=== PATIENT | male | born 1980 | race Caucasian/White ===

== ENCOUNTER 2016-09-23 20:35 | Inpatient (IN) | payer MEDICARE, MEDICAID, OTHER ==
--- NOTE | 2016-09-23 21:08 | RAD ---
HISTORY: Neurological changes, code harman COMPARISONS: None TECHNIQUE: Multiple contiguous axial CT scans were obtained of the head without intravenous contrast. FINDINGS: HEMORRHAGE/INFARCT: There is no hemorrhage or acute infarct. MASSES/SHIFT: There is no mass or shift. EXTRA-AXIAL SPACES: There are no extra-axial fluid collections. SULCI AND VENTRICLES: The sulci and ventricles are normal in size and position for the patient's stated age. CEREBRUM: There are no focal parenchymal abnormalities. BRAINSTEM: There are no focal parenchymal abnormalities. CEREBELLUM: There are no focal parenchymal abnormalities. VESSELS: The vessels are grossly normal. PARANASAL SINUSES: The paranasal sinuses are clear. ORBITS: The orbits are unremarkable. BONES AND SOFT TISSUE: No bone or soft tissue abnormalities are noted. OTHER: None IMPRESSION: NO ACUTE INTRACRANIAL PATHOLOGY. PRELIMINARY FINDINGS WERE DISCUSSED WITH DR. ARCHER IN THE EMERGENCY DEPARTMENT AT APPROXIMATELY 9:03 PM..
[2016-09-23 21:18] LABS: Hematocrit 44 % (42-52); Hemoglobin 14.6 g/dl (14.0-18.0); Mean Corpuscular HGB Conc 34 g/dl (31-36); Mean Corpuscular Hemoglobin 29 pg (27-31); Mean Corpuscular Volume 87 fL (80-94); Mean Platelet Volume 7 um3 (7.4-10.4); Red Blood Count 4.98 10^6/ul (4.0-5.4); Red Cell Distribution Width 14 % (10.5-15); White Blood Count 4.7 10^3/ul (3.5-10.8)
[2016-09-23] MEDS ORDERED: ALTEPLASE IV ONE (21:21)
[2016-09-23] MEDS ORDERED: Alteplase* 100 MG VIAL IV ONE (21:21)
[2016-09-23] MEDS ORDERED: ALTEPLASE IVPB ONE (21:21)
[2016-09-23 21:31] LABS: Albumin 4.5 g/dL (3.2-5.2); BUN/Creatinine Ratio 19.4 (8-20); Calcium 9.5 mg/dL (8.6-10.3); EGFR African American 110.1 (>60); EGFR Non-African American 85.6 (>60); Globulin 3.6 g/dL (2-4); HDL Cholesterol 33.5 mg/dL; Total Bilirubin 0.7 mg/dL (0.2-1.0); Total Protein 8.1 g/dL (6.4-8.9)
--- NOTE | 2016-09-23 21:31 | RAD ---
HISTORY: Stroke COMPARISONS: None VIEWS:1: Single frontal portable view of the chest at 9:02 PM FINDINGS: LINES AND TUBES: A left-sided pacemaker is noted CARDIOMEDIASTINAL SILHOUETTE: The cardiomediastinal silhouette is normal for portable technique. PLEURA: The costophrenic angles are sharp. No pleural abnormalities are noted. LUNG PARENCHYMA: The lungs are clear. ABDOMEN: The upper abdomen is clear. There is no subphrenic gas. BONES AND SOFT TISSUES: No bone or soft tissue abnormalities are noted. IMPRESSION: NO ACTIVE CARDIOPULMONARY DISEASE.
[2016-09-23] MEDS ORDERED: Alteplase* 100 MG VIAL ONE (21:32)
[2016-09-23 21:33] LABS: Potassium 4.1 mmol/L (3.5-5.0); Troponin I 0.01 ng/mL (<0.04)
[2016-09-23] MEDS ORDERED: Iodixanol* (CONTRAST) 320 MG/ML 100 ML SDV IV ONE (21:50)
[2016-09-23] MEDS ORDERED: PROCHLORPERAZINE INJ 5 MG/ML 2 ML VIAL IV PRN (22:20)
[2016-09-23] MEDS ORDERED: Acetaminophen TAB* 325 MG PO PRN (22:20)
[2016-09-23] MEDS ORDERED: Ondansetron INJ* 2 MG/ML VIAL IV PRN (22:20)
--- NOTE | 2016-09-23 22:25 | HP ---
H&P (Free Text) History and Physical: PCP: THERON Huber MD Date/Time of Evaluation: 09/23/2016 2225 CC: L-sided weakness, slurred speech HPI: Mr York is a 36YO male HX unnamed/unidentified congenital neurologic syndrome & AFIB s/p pacer at age 13 years who presents with sudden onset at 1810 of L-sided upper & lower extremity weakness associated with slurred speech for which he PMedHx unnamed/unidentified congenital neurologic syndrome s/p extensive work up : tunnel vision : speech impediment : pes excavatum : ataxia chronic AFIB s/p pacer HTN L exotropia Allergies No Known Allergies Allergy (Verified 09/23/16 22:47) Ambulatory Orders Aspirin TAB* 325 mg PO DAILY 12/09/14 Fish Oil 1 tab PO DAILY 12/09/14 Lactobacillus [Probiotic] 1 cap PO DAILY 12/09/14 Lisinopril TAB* [Prinivil TAB*] 2.5 mg PO DAILY 12/09/14 Nebivolol TAB (NF) [Bystolic TAB (NF)] 2.5 mg PO DAILY 12/09/14 Topical Antifungal Cream* PRN 01/26/16 PSurgHx pes escavatum correction pacer placement L esotropia correction wisdom teeth extraction muscle biopsy SocHx: no tobacco, alcohol, or recreational drugs; lives with his parents; unemployed, on disability; full code status FamHx: Father: MARISSA/4vCABG in his 40s ROS: as above, otherwise reviewed and all were negative Constitutional: NAD, normally developed, well-nourished white male vitals: Vital Signs Temp 36.3 C 09/23/16 20:47 Pulse 85 09/23/16 20:47 Resp 20 09/23/16 20:47 BP 132/60 09/23/16 20:47 Pulse Ox 100 09/23/16 20:47 HEENM: atraumatic; sclera/conjunctiva: non-icteric/clear; hearing: clinically intact; oropharynx: clear, mucosa moist Neck: soft tissue: non-tender; thyroid: normal Pulmonary: clear to auscultation bilaterally, good aeration, no accessory muscle use CV: RR/RR, normal S1S2, no carotid bruit, no jugular venous distention, 2+ B DP/ PT, no edema Abdominal: soft, non-distended, non-tender, no rebound/guarding/rigidity, normoactive bowel sounds, no hepatosplenomegaly or masses, no costovertebral angle tenderness Musculoskeletal: general: grossly intact Integumental: normal appearance and texture Neurological deferred to neurology Psychiatric orientation: AA&O to PPS affect: calm mood: pleasant eye contact: good content: reliable, mild expressive aphasia responses: timely insight: fair to good Testing: Lab Results 09/23/16 09/23/16 09/23/16 Range/Units 20:50 20:50 20:50 WBC 4.7 (3.5-10.8) 10^3/ul RBC 4.98 (4.0-5.4) 10^6/ul Hgb 14.6 (14.0-18.0) g/dl Hct 44 (42-52) % MCV 87 (80-94) fL MCH 29 (27-31) pg MCHC 34 (31-36) g/dl RDW 14 (10.5-15) % Plt Count 264 (150-450) 10^3/ul MPV 7 L (7.4-10.4) um3 Neut % (Auto) 38.2 (38-83) % Lymph % (Auto) 42.8 (25-47) % Bennett % (Auto) 16.8 H (1-9) % Eos % (Auto) 1.3 (0-6) % Baso % (Auto) 0.9 (0-2) % Absolute Neuts (auto) 1.8 (1.5-7.7) 10^3/ul Absolute Lymphs (auto) 2.0 (1.0-4.8) 10^3/ul Absolute Monos (auto) 0.8 (0-0.8) 10^3/ul Absolute Eos (auto) 0.1 (0-0.6) 10^3/ul Absolute Basos (auto) 0 (0-0.2) 10^3/ul Absolute Nucleated RBC 0.01 10^3/ul Nucleated RBC % 0.2 INR (Anticoag Therapy) 1.00 (0.89-1.11) APTT 31.8 (26.0-36.3) seconds Sodium 134 (133-145) mmol/L Potassium 4.1 (3.5-5.0) mmol/L Chloride 99 L (101-111) mmol/L Carbon Dioxide 29 (22-32) mmol/L Anion Gap 6 (2-11) mmol/L BUN 19 (6-24) mg/dL Creatinine 0.98 (0.67-1.17) mg/dL Est GFR ( Amer) 110.1 (>60) Est GFR (Non-Af Amer) 85.6 (>60) BUN/Creatinine Ratio 19.4 (8-20) Glucose 95 (70-100) mg/dL Lactic Acid (0.5-2.0) mmol/L Calcium 9.5 (8.6-10.3) mg/dL Total Bilirubin 0.70 (0.2-1.0) mg/dL AST 19 (13-39) U/L ALT 13 (7-52) U/L Alkaline Phosphatase 65 (34-104) U/L Troponin I 0.01 (<0.04) ng/mL Total Protein 8.1 (6.4-8.9) g/dL Albumin 4.5 (3.2-5.2) g/dL Globulin 3.6 (2-4) g/dL Albumin/Globulin Ratio 1.3 (1-3) Triglycerides 215 mg/dL Cholesterol 208 mg/dL LDL Cholesterol 132 mg/dL HDL Cholesterol 33.5 mg/dL Urine Color Urine Appearance Urine pH (5-9) Ur Specific [place] (1.010-1.030) Urine Protein (Negative) Urine Ketones (Negative) Urine Blood (Negative) Urine Nitrate (Negative) Urine Bilirubin (Negative) Urine Urobilinogen (Negative) Ur Leukocyte Esterase (Negative) Urine WBC (Auto) (Absent) Urine RBC (Auto) (Absent) Urine Bacteria (Absent) Hyaline Casts (Absent) Urine Glucose (Negative) Blood Type Antibody Screen 09/23/16 09/23/16 09/23/16 Range/Units 20:50 20:50 21:51 WBC (3.5-10.8) 10^3/ul RBC (4.0-5.4) 10^6/ul Hgb (14.0-18.0) g/dl Hct (42-52) % MCV (80-94) fL MCH (27-31) pg MCHC (31-36) g/dl RDW (10.5-15) % Plt Count (150-450) 10^3/ul MPV (7.4-10.4) um3 Neut % (Auto) (38-83) % Lymph % (Auto) (25-47) % Bennett % (Auto) (1-9) % Eos % (Auto) (0-6) % Baso % (Auto) (0-2) % Absolute Neuts (auto) (1.5-7.7) 10^3/ul Absolute Lymphs (auto) (1.0-4.8) 10^3/ul Absolute Monos (auto) (0-0.8) 10^3/ul Absolute Eos (auto) (0-0.6) 10^3/ul Absolute Basos (auto) (0-0.2) 10^3/ul Absolute Nucleated RBC 10^3/ul Nucleated RBC % INR (Anticoag Therapy) (0.89-1.11) APTT (26.0-36.3) seconds Sodium (133-145) mmol/L Potassium (3.5-5.0) mmol/L Chloride (101-111) mmol/L Carbon Dioxide (22-32) mmol/L Anion Gap (2-11) mmol/L BUN (6-24) mg/dL Creatinine (0.67-1.17) mg/dL Est GFR ( Amer) (>60) Est GFR (Non-Af Amer) (>60) BUN/Creatinine Ratio (8-20) Glucose (70-100) mg/dL Lactic Acid 0.8 (0.5-2.0) mmol/L Calcium (8.6-10.3) mg/dL Total Bilirubin (0.2-1.0) mg/dL AST (13-39) U/L ALT (7-52) U/L Alkaline Phosphatase (34-104) U/L Troponin I (<0.04) ng/mL Total Protein (6.4-8.9) g/dL Albumin (3.2-5.2) g/dL Globulin (2-4) g/dL Albumin/Globulin Ratio (1-3) Triglycerides mg/dL Cholesterol mg/dL LDL Cholesterol mg/dL HDL Cholesterol mg/dL Urine Color Yellow Urine Appearance Clear Urine pH 6.0 (5-9) Ur Specific [place] 1.019 (1.010-1.030) Urine Protein 1+(30 mg/dl) H (Negative) Urine Ketones Negative (Negative) Urine Blood 2+ H (Negative) Urine Nitrate Negative (Negative) Urine Bilirubin Negative (Negative) Urine Urobilinogen Negative (Negative) Ur Leukocyte Esterase Negative (Negative) Urine WBC (Auto) Trace(0-5/hpf) (Absent) Urine RBC (Auto) 2+(6-10/hpf) H (Absent) Urine Bacteria Absent (Absent) Hyaline Casts Present H (Absent) Urine Glucose Negative (Negative) Blood Type O Positive Antibody Screen Negative ECG, personally reviewed: A-flutter, ventricularly paced rate 60 CXR, personally reviewed: IMPRESSION: NO ACTIVE CARDIOPULMONARY DISEASE. CT brain WO, personally reviewed: IMPRESSION: NO ACUTE INTRACRANIAL PATHOLOGY. CTA head/neck: IMPRESSION: 1. NO ANEURYSM, VASCULAR MALFORMATION, OCCLUSION, OR STENOSIS OF THE VISUALIZED INTRACRANIAL CIRCULATION. 2. NO INTERNAL CAROTID ARTERY STENOSIS BY NASCET CRITERIA. Impression: 36M presenting with an acute L MCA CVA now s/p tPA DIAGNOSIS & PLAN Primary acute L MCA CVA now s/p tPA : post-tPA protocol : ICU monitoring : Cheng Rivera MD neurology evaluated in ED & will follow : supplemental oxygen : supportive care AFIB : rate controlled : [id number] score now 3, will need anticoagulation once cleared by neurology : continue nabivolol Secondary unnamed/unidentified congenital neurologic syndrome s/p extensive work up : tunnel vision : speech impediment : pes excavatum : ataxia HTN : continue lisinopril & nebivolol Admission Rational: inpatient for management of acute L MCA CVA s/p tPA DVTp: tPA for first 24hours, then to be decided pending further CVA work up Code Status: full HCP: mother
--- NOTE | 2016-09-23 22:42 | CONS ---
CONSULTATION REPORT: ADDENDUM: The patient continued to improve and the family had me reevaluate him prior to giving the TPA. He still has a slight pronator drift on the right and a less of a facial droop but still a facial droop. He is able to speak in sentences now but with some word finding difficulty and hesitancy. He also has some slurred speech which is his baseline but his speech is still significantly affected and we were able to discuss whether he wants to get the TPA despite the risks as well as the family they are in agreement to going ahead and this is what we will be doing at this point. [id number]/CPS #: [id number] MTDD
[2016-09-23 22:53] LABS: Urine Bacteria Absent (Absent); Urine Bilirubin Negative (Negative); Urine Glucose Negative (Negative); Urine Nitrite Negative (Negative)
--- NOTE | 2016-09-23 23:04 | RAD ---
HISTORY: Facial droop, stroke COMPARISONS: Head CT dated September 23, 2016 TECHNIQUE: Multiple contiguous axial CT scans were obtained of the head and neck After the administration of nonionic intravenous contrast timed to the systemic arterial phase of contrast enhancement. Coronal and sagittal multiplanar reformations are submitted for review. Multiple 3-D maximum intensity projection reconstructions are also submitted for review. FINDINGS: Evaluation is limited by suboptimal contrast opacification. CTA NECK: AORTIC ARCH: Evaluation limited by suboptimal contrast opacification and streak artifact from left-sided pacemaker. There is a bovine configuration, with the left common carotid artery originating from the brachiocephalic trunk. There is no ostial or proximal stenosis of the cephalic great vessels. RIGHT VERTEBRAL ARTERY: The right vertebral artery is patent along its course, without stenosis. LEFT VERTEBRAL ARTERY: The left vertebral artery is patent along its course, without stenosis. DOMINANCE: The vertebral arteries are codominant. RIGHT COMMON CAROTID ARTERY: The right common carotid artery is patent. The right carotid bifurcation occurs at C4-C5 RIGHT INTERNAL CAROTID ARTERY: There is no right internal carotid artery stenosis by NASCET criteria. RIGHT EXTERNAL CAROTID ARTERY: The right external carotid artery is unremarkable. LEFT COMMON CAROTID ARTERY: The left common carotid artery is patent. The left carotid bifurcation occurs at C4-C5 LEFT INTERNAL CAROTID ARTERY: There is no left internal carotid artery stenosis by NASCET criteria. LEFT EXTERNAL CAROTID ARTERY: The left external carotid artery is unremarkable. VENOUS CIRCULATION: The venous system is unremarkable. SALIVARY GLANDS: The parotid glands, submandibular glands, sublingual glands are normal. NASAL CAVITY/NASOPHARYNX: The nasal cavity and nasopharynx are normal. ORAL CAVITY/OROPHARYNX: The oral cavity is obscured by streak artifact from dental amalgam. The visualized oral cavity and oropharynx are unremarkable. LARYNGEAL APPARATUS/HYPOPHARYNX: The laryngeal apparatus and hypopharynx are normal. UPPER AIRWAY/UPPER ESOPHAGUS: The visualized upper airway and esophagus are normal. LUNG APICES: The lung apices are clear. THYROID GLAND: The thyroid gland is normal. LYMPH NODES: There is no lymphadenopathy by size criteria. BONES AND SOFT TISSUES: No bone or soft tissue abnormalities are noted. CTA HEAD: INTRACRANIAL CIRCULATION: There are origins of the posterior cerebral arteries bilaterally. The anterior communicating artery complex is clear. This results in a diminutive vertebrobasilar system which is felt to BE an anatomic variant given the predominant supply of the posterior cerebral arteries from the anterior circulation. There is no aneurysm, vascular malformation, focal stenosis, or occlusion of the visualized intracranial circulation. VENOUS CIRCULATION: The venous system is unremarkable. PERFUSION: There is no obvious parenchymal perfusion deficit. HEMORRHAGE/INFARCT: There is no hemorrhage or acute infarct. MASSES/SHIFT: There is no mass or shift. EXTRA-AXIAL SPACES: There are no extra-axial fluid collections. SULCI AND VENTRICLES: The sulci and ventricles are normal in size and position for the patient's stated age. CEREBRUM: There are no focal parenchymal abnormalities. BRAINSTEM: There are no focal parenchymal abnormalities. CEREBELLUM: There are no focal parenchymal abnormalities. PARANASAL SINUSES: The paranasal sinuses are clear. ORBITS: The orbits are unremarkable. BONES AND SOFT TISSUE: No bone or soft tissue abnormalities are noted. OTHER: There is no abnormal enhancement. IMPRESSION: 1. NO ANEURYSM, VASCULAR MALFORMATION, OCCLUSION, OR STENOSIS OF THE VISUALIZED INTRACRANIAL CIRCULATION. 2. NO INTERNAL CAROTID ARTERY STENOSIS BY NASCET CRITERIA. CPT II Codes: 3100F
[2016-09-23] MEDS: Pantoprazole IV* 40 MG IV SCH (23:07)
--- NOTE | 2016-09-23 23:26 | ED ---
David Flores Billy, scribed for Gabriel Brandt MD on 09/23/16 at 2109 . Neurological HPI - HPI Summary HPI Summary: Patient is a 36 year-old male coming to [facility] with his parents presenting with slurred speech, right-sided upper and lower extremity weakness, right-sided facial droop, and confusion AMS starting at 2020 tonight. Parents state that the facial droop and speech sounds seem to have improved since onset, but the patient's confusion appears unchanged. 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 - History of Current Complaint Chief Complaint: EDAltMentalStatus Stated Complaint: RT SIDE WEAKNESS/CONFUSED Time Seen by Provider: 09/23/16 20:54 Last Known Well Date: prior to 20:20 today Hx Obtained From: Family/[employer] Helper - parents Onset/Duration: Sudden Onset, Started minutes ago, Still Present Timing: Constant Onset Severity: Moderate Current Severity: Moderate Neurological Deficit Location: Facial, RUE, RLE Character: Motor Weakness, Impaired Speech, Confusion, Other: - facial droop Aggravating: Unknown Alleviating: Unknown - Allergy/Home Medications Allergies/Adverse Reactions: Allergies Allergy/AdvReac Type Severity Reaction Status Date / Time No Known Allergies Allergy Verified 09/23/16 22:47 PMH/Surg Hx/FS Hx/Imm Hx Cardiovascular History: Reports: Hx Pacemaker/ICD Musculoskeletal History: Reports: Other Musculoskeletal History - pectus excavatum - Surgical History Surgery Procedure, Year, and Place: PACEMAKER, PECTUSEXCAVATUM REPAIR, EYE SURGERY Infectious Disease History: Denies: Traveled Outside the [place] in Last 30 Days - Family History Known Family History: Positive: Hypertension - Social History Alcohol Use: Occasionally Substance Use Type: Reports: None Smoking Status (MU): Never Smoked Tobacco Review of Systems Negative: Fever Neurological: Other - right facial droop, AMS, ataxia Positive: Weakness, Slurred Speech All Other Systems Reviewed And Are Negative: No - Comments Additional Review of Systems Comments: Due to his symptoms, patient is unable to effectively provide a complete ROS. Physical Exam - Summary Physical Exam Summary: VITAL SIGNS: Reviewed. GENERAL: Patient is a well developed and nourished male with speech aphasia. Unable to communicate well since he has difficulty speaking. HEAD AND FACE: No signs of trauma. No ecchymosis, hematomas or skull depressions. No sinus tenderness. EYES: PERRLA, EOMI x 2, No injected conjunctiva, no nystagmus. No photophobia. EARS: Hearing grossly intact. Ear canals and tympanic membranes are within normal limits. MOUTH: Oropharynx within normal limits. NECK: Supple, trachea is midline, no adenopathy, no JVD, no carotid bruit, no c- spine tenderness, neck with full ROM. No meningeal signs, no Kernig's or brudzinskis signs. CHEST: Symmetric, no tenderness at palpation LUNGS: Clear to auscultation bilaterally. No wheezing or crackles. CVS: Regular rate and rhythm, S1 and S2 present, no murmurs or gallops appreciated. ABDOMEN: Soft, non-tender. No signs of distention. No rebound no guarding, and no masses palpated. Bowel sounds are normal. EXTREMITIES: No edema, no cyanosis or clubbing. NEURO: Alert not oriented. NIH score 11 SKIN: Dry and warm Triage Information Reviewed: Yes Vital Signs On Initial Exam: Initial Vitals Temp Pulse Resp BP Pulse Ox 97.4 F 85 20 132/60 100 09/23/16 20:47 09/23/16 20:47 09/23/16 20:47 09/23/16 20:47 09/23/16 20:47 Vital Signs Reviewed: Yes Diagnostics - Vital Signs Vital Signs Temp Pulse Resp BP Pulse Ox 09/23/16 20:47 97.4 F 85 20 132/60 100 - Laboratory Lab Results: Lab Results 09/23/16 09/23/16 09/23/16 Range/Units 20:50 20:50 20:50 WBC 4.7 (3.5-10.8) 10^3/ul RBC 4.98 (4.0-5.4) 10^6/ul Hgb 14.6 (14.0-18.0) g/dl Hct 44 (42-52) % MCV 87 (80-94) fL MCH 29 (27-31) pg MCHC 34 (31-36) g/dl RDW 14 (10.5-15) % Plt Count 264 (150-450) 10^3/ul MPV 7 L (7.4-10.4) um3 Neut % (Auto) 38.2 (38-83) % Lymph % (Auto) 42.8 (25-47) % Pike % (Auto) 16.8 H (1-9) % Eos % (Auto) 1.3 (0-6) % Baso % (Auto) 0.9 (0-2) % Absolute Neuts (auto) 1.8 (1.5-7.7) 10^3/ul Absolute Lymphs (auto) 2.0 (1.0-4.8) 10^3/ul Absolute Monos (auto) 0.8 (0-0.8) 10^3/ul Absolute Eos (auto) 0.1 (0-0.6) 10^3/ul Absolute Basos (auto) 0 (0-0.2) 10^3/ul Absolute Nucleated RBC 0.01 10^3/ul Nucleated RBC % 0.2 INR (Anticoag Therapy) 1.00 (0.89-1.11) APTT 31.8 (26.0-36.3) seconds Sodium 134 (133-145) mmol/L Potassium 4.1 (3.5-5.0) mmol/L Chloride 99 L (101-111) mmol/L Carbon Dioxide 29 (22-32) mmol/L Anion Gap 6 (2-11) mmol/L BUN 19 (6-24) mg/dL Creatinine 0.98 (0.67-1.17) mg/dL Est GFR ( Amer) 110.1 (>60) Est GFR (Non-Af Amer) 85.6 (>60) BUN/Creatinine Ratio 19.4 (8-20) Glucose 95 (70-100) mg/dL Lactic Acid (0.5-2.0) mmol/L Calcium 9.5 (8.6-10.3) mg/dL Total Bilirubin 0.70 (0.2-1.0) mg/dL AST 19 (13-39) U/L ALT 13 (7-52) U/L Alkaline Phosphatase 65 (34-104) U/L Troponin I 0.01 (<0.04) ng/mL Total Protein 8.1 (6.4-8.9) g/dL Albumin 4.5 (3.2-5.2) g/dL Globulin 3.6 (2-4) g/dL Albumin/Globulin Ratio 1.3 (1-3) Triglycerides 215 mg/dL Cholesterol 208 mg/dL LDL Cholesterol 132 mg/dL HDL Cholesterol 33.5 mg/dL Urine Color Urine Appearance Urine pH (5-9) Ur Specific [place] (1.010-1.030) Urine Protein (Negative) Urine Ketones (Negative) Urine Blood (Negative) Urine Nitrate (Negative) Urine Bilirubin (Negative) Urine Urobilinogen (Negative) Ur Leukocyte Esterase (Negative) Urine WBC (Auto) (Absent) Urine RBC (Auto) (Absent) Urine Bacteria (Absent) Hyaline Casts (Absent) Urine Glucose (Negative) Blood Type Antibody Screen 09/23/16 09/23/16 09/23/16 Range/Units 20:50 20:50 21:51 WBC (3.5-10.8) 10^3/ul RBC (4.0-5.4) 10^6/ul Hgb (14.0-18.0) g/dl Hct (42-52) % MCV (80-94) fL MCH (27-31) pg MCHC (31-36) g/dl RDW (10.5-15) % Plt Count (150-450) 10^3/ul MPV (7.4-10.4) um3 Neut % (Auto) (38-83) % Lymph % (Auto) (25-47) % Pike % (Auto) (1-9) % Eos % (Auto) (0-6) % Baso % (Auto) (0-2) % Absolute Neuts (auto) (1.5-7.7) 10^3/ul Absolute Lymphs (auto) (1.0-4.8) 10^3/ul Absolute Monos (auto) (0-0.8) 10^3/ul Absolute Eos (auto) (0-0.6) 10^3/ul Absolute Basos (auto) (0-0.2) 10^3/ul Absolute Nucleated RBC 10^3/ul Nucleated RBC % INR (Anticoag Therapy) (0.89-1.11) APTT (26.0-36.3) seconds Sodium (133-145) mmol/L Potassium (3.5-5.0) mmol/L Chloride (101-111) mmol/L Carbon Dioxide (22-32) mmol/L Anion Gap (2-11) mmol/L BUN (6-24) mg/dL Creatinine (0.67-1.17) mg/dL Est GFR ( Amer) (>60) Est GFR (Non-Af Amer) (>60) BUN/Creatinine Ratio (8-20) Glucose (70-100) mg/dL Lactic Acid 0.8 (0.5-2.0) mmol/L Calcium (8.6-10.3) mg/dL Total Bilirubin (0.2-1.0) mg/dL AST (13-39) U/L ALT (7-52) U/L Alkaline Phosphatase (34-104) U/L Troponin I (<0.04) ng/mL Total Protein (6.4-8.9) g/dL Albumin (3.2-5.2) g/dL Globulin (2-4) g/dL Albumin/Globulin Ratio (1-3) Triglycerides mg/dL Cholesterol mg/dL LDL Cholesterol mg/dL HDL Cholesterol mg/dL Urine Color Yellow Urine Appearance Clear Urine pH 6.0 (5-9) Ur Specific [place] 1.019 (1.010-1.030) Urine Protein 1+(30 mg/dl) H (Negative) Urine Ketones Negative (Negative) Urine Blood 2+ H (Negative) Urine Nitrate Negative (Negative) Urine Bilirubin Negative (Negative) Urine Urobilinogen Negative (Negative) Ur Leukocyte Esterase Negative (Negative) Urine WBC (Auto) Trace(0-5/hpf) (Absent) Urine RBC (Auto) 2+(6-10/hpf) H (Absent) Urine Bacteria Absent (Absent) Hyaline Casts Present H (Absent) Urine Glucose Negative (Negative) Blood Type O Positive Antibody Screen Negative Result Diagrams: 09/23/16 20:50 09/23/16 20:50 Lab Statement: Any lab studies that have been ordered have been reviewed, and results considered in the medical decision making process. - Radiology CXR Xray Interpretation: No Acute Changes Radiology Interpretation Completed By: Radiologist - CT brain wo CT Interpretation: No Acute Changes CT Interpretation Completed By: Radiologist CTA head/neck CT Interpretation Completed By: Radiologist - 1. NO ANEURYSM, VASCULAR MALFORMATION, OCCLUSION, OR STENOSIS OF THE VISUALIZED INTRACRANIAL CIRCULATION. 2. NO INTERNAL CAROTID ARTERY STENOSIS BY NASCET CRITERIA. - EKG 2105 EKG Interpretation: paced rhythm atrial flutter 60 bpm NIH Scale - NIH Scale Level of Consciousness: Alert/Keenly Responsive Ask Patient the Month and His/Her Age: Neither Correct/Aphasic Ask Pt to Open/Close Eyes and Civil Rights Attorney/Release Non-Paretic Hand: Neither Correctly Best Gaze (Only Horizontal Eye Movement): Normal Visual Field Testing: No Visual Loss Facial Paresis-Pt to Smile & Close Eyes or Grimace Symmetry: Normal/Symmetrical Motor Function - Right Arm: Drifts LT 10 seconds Motor Function - Left Arm: No Drift-Holds 10 Seconds Motor Function - Right Leg: Drifts LT 10 seconds Motor Function - Left Leg: No Drift-Holds 10 Seconds Limb Ataxia-Must be out of Proportion to Weakness Present: Present in Two Limbs Sensory (Use Pinprick to Test Arms/Legs/Trunk/Face): Pinprick Less on Affected Best Language (Describe Picture, Name Items): Some Loss Dysarthria (Read Several Words): Slurs Some Words Extinction and Inattention: No Abnormality Total Score: 11 Course/Dx - Course Assessment/Plan: Patient is a 36 year-old male coming to [facility] with his parents presenting with slurred speech, right-sided upper and lower extremity weakness, right-sided facial droop, and confusion AMS starting at 2020 tonight. Parents state that the facial droop and speech sounds seem to have improved since onset , but the patient's confusion appears unchanged. 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 Bloodwork WNL. UA is with slight protein and RBC. CT brain shows no acute intracranial pathology. EKG shows atrial flutter at 60 bpm, paced rhythm. Patient still has deficit, NIH score equal to 11. I discussed the case with Dr. Rivera, who came and assessed the patient. He recommended tPA, discussed benfeit/risk with family, and they agreed. He was given tPA without complications up to this point in time. Dr. Rivera recommended a CTA of the head/neck which shows no aneurysm, vascular malformation, occlusion, or stenosis of intracranial circulation, no internal carotid artery stenosis by NASCET criteria. Patient continues to do well and he has improved approximately 90% of his dfeicits. I discussed the case with Dr. Patiño who accepted the patient for admission to the ICU. He is hemodynamically stable, and he has neurological improvement. - Differential Dx Differential Diagnoses Neuro: Positive: Cerebrovascular Accident, Headache, Transient Ischemic Attack - Diagnoses Provider Diagnoses: CVA (cerebral vascular accident) During the Visit The Following Alert/Code Occurred: Code Hdz - Physician Notifications Discussed Care of Patient With: Dr. Marino (radiology) @ 2104: CT brain findings reviewed. Dr. Rivera (neurology) @ 2108: continue with tPA. Dr. Patiño (hospitalist) @ 2134: accepts admission. Dr. Rivera (neurology) @ 2138: recommends CTA head/neck. Discharge - Discharge Plan Condition: Stable Disposition: ADMITTED TO [facility] Referrals: Mauro Huber MD [Primary Care Provider] - The documentation as recorded by the David wills Billy accurately reflects the service I personally performed and the decisions made by , Gabriel Brandt MD.
--- NOTE | 2016-09-23 23:31 | CONS ---
ADDENDUM NOW INCLUDED ON THIS REPORT CONSULTATION REPORT: DATE OF CONSULT/DICTATION: 09/23/16 PATIENT OF: Dr. Brandt HISTORY: This is a 36-year-old, ambidextrous man, who at 8:20 today developed acute onset of right-sided weakness in arm and face with significant speech difficulties. He was brought in directly to the emergency room. Of note, he has atrial fibrillation and is on aspirin for this. He has a history of ataxia and has some slightly slurred speech but his speech is markedly different since 8:20 today. He has had an extensive workup for his ataxia including significant genetic testing at tertiary centers and there has been no known etiology for it. He has had no prior stroke. PAST SURGICAL HISTORY: There is no surgery. MEDICATIONS: At home, include: 1. Aspirin, we think 325 mg a day. 2. Lisinopril 2.5 daily. ALLERGIES: He has had no known allergies. SOCIAL HISTORY: He does not drink, smoke, or use drugs. REVIEW OF SYSTEMS: All 14 spheres is negative other than HPI. PHYSICAL EXAM: Temperature 97.4, pulse 85, respirations 20, blood pressure 132/ 60. He is alert and oriented. He can spell his name with hesitancy, he is finding letters, but cannot say his name. He cannot name things such as elbow but attempts to say and is somewhat frustrated. He cannot do any repetition and he is not speaking words at all other than attempted spelling as mentioned. Cranial nerves II through XII were intact other than his exotropia status post surgery for esotropia. He has a mild right facial palsy, upper motor neuron type. He has trace weakness in his right arm with some right pronator drift, no drift on the left. He has 5-/5 strength in the right leg with some drift in that toe was equivocal on that side, downgoing in the left. Reflexes were 1 throughout. Sensation decreased in right face and has no field cut. Chest: Clear. Cardiovascular: Irregular rate and rhythm. Abdomen: Soft with positive bowel sounds. DIAGNOSTIC STUDIES/LAB DATA: CT scan, I have reviewed, which was normal. His CBC was normal. INR and PTT were normal. CMP was normal other than a chloride of 99, LDL was 132. His NIH Stroke Scale was 11 when he came in and he is somewhat improved from that as described above. IMPRESSION: I discussed with the family in detail the pros and cons of tPA and that given his significant speech deficit, it would be most appropriate to treat despite the risks of bleeding, which I have discussed with them in detail. We will go ahead and give this. We are also planning on getting a CTA now to make sure he does not have a clot in a large enough vessel that requires clot retrieval; discussed this with the family. He will be admitted to the ICU unless he needed to be transferred to [place] and tomorrow, he will need an MRI scan and echo as well as CT scan 24 hours after and after the 24-hour observation period, he will need to be either on aspirin or anticoagulation. The aspirin would be if he had a large stroke. If his stroke completely clears with tPA, then he may be able to do fine going directly to the anticoagulation. We will make that decision tomorrow evening. Thank you for sharing his case. ADDENDUM: The patient continued to improve and the family had me reevaluate him prior to giving the TPA. He still has a slight pronator drift on the right and a less of a facial droop but still a facial droop. He is able to speak in sentences now but with some word finding difficulty and hesitancy. He also has some slurred speech which is his baseline but his speech is still significantly affected and we were able to discuss whether he wants to get the TPA despite the risks as well as the family they are in agreement to going ahead and this is what we will be doing at this point. [id number]/[facility]PS #: [id number] - [id number]/CPS #: [id number] AMADOR
[2016-09-24] MEDS: NS 0.9% 1000 ML* 1,000 ML IV SCH ×3 (00:32→16:56)
[2016-09-24 06:00] LABS: Hematocrit 39 % (42-52); Hemoglobin 13.1 g/dl (14.0-18.0); Mean Corpuscular HGB Conc 33 g/dl (31-36); Mean Corpuscular Hemoglobin 29 pg (27-31); Mean Corpuscular Volume 87 fL (80-94); Mean Platelet Volume 7 um3 (7.4-10.4); Red Blood Count 4.48 10^6/ul (4.0-5.4); Red Cell Distribution Width 14 % (10.5-15); White Blood Count 3.4 10^3/ul (3.5-10.8)
[2016-09-24 06:05] LABS: Comments Flag Yes
[2016-09-24 06:06] LABS: Add Diff/Slide Review? Slide Review Added
[2016-09-24 06:10] LABS: BUN/Creatinine Ratio 16.3 (8-20); Calcium 8.9 mg/dL (8.6-10.3); EGFR African American 118.4 (>60); EGFR Non-African American 92.1 (>60); Potassium 4.1 mmol/L (3.5-5.0)
[2016-09-24] MEDS: CMCS Nebivolol TAB (NF) 2.5 MG TAB PO SCH (09:00)
[2016-09-24] MEDS: Docusate CAP* 100 MG PO SCH ×2 (09:00→20:49)
[2016-09-24] MEDS: Lisinopril TAB* 5 MG PO SCH (09:05)
[2016-09-24] MEDS: Pantoprazole IV* 40 MG IV SCH (09:05)
--- NOTE | 2016-09-24 12:09 | PN ---
PROGRESS NOTE: DATE OF VISIT/DICTATION: 09/24/26 - ROOM #ICU-10 HISTORY: He has done well overnight. His speech is slurred, but back to normal. There has been no weakness. There has been no headaches. There have been no symptoms of bleeding overnight either. He has received tPA without problem. He on his lisinopril, Bystolic, Zofran, Protonix, and Compazine p.r.n. PHYSICAL EXAMINATION: Temperature 99.6, pulse 60, respirations 16, blood pressure 103/55. He is alert and oriented with slurred speech, but back to his baseline. There was no hesitancy in his speech. No word finding difficulty. Repetition was intact. There was no facial weakness. Cranial nerves were intact. Strength was 5/5. Chest: Clear. Cardiovascular: Regular rate and rhythm. Abdomen: Soft with positive bowel sounds. His echo is being obtained , we cannot get an MRI scan given his pacemaker. His CTA showed no stenosis or vascular malformations. Alden is status post stroke, status post tPA with clinical resolution of symptoms. We will be getting a CT scan tonight and then afterwards, we will either begin antiplatelet therapy depending on if there are abnormalities on his CT scan and what his clinical status is at the time or if he is completely normal with a negative CT, I would defer to the neurologist on-call then, Dr. Gutiérrez, as to whether she wants to wait a day or two to begin anticoagulation and cover him with antiplatelets for then or begin immediately on anticoagulation. The mother says that in addition to the weakness he had on the right side, there may have been some stiffness in the arm; therefore, at the onset of this, I am obtaining an EEG. It does not sound classic for seizure and he does not drive and I would not treat him with anticonvulsants at this point unless he had an abnormal EEG. I discussed this with the family that even a normal EEG would not rule out seizures and this could have been seizure with a postictal Todds, but I think that this is less likely than stroke , especially given his atrial fibrillation. Thank you for sharing his case. [id number]/[facility] #: [id number] AMADOR
--- NOTE | 2016-09-24 13:07 | RAD ---
HISTORY: Status post tPA administration, follow-up, stroke COMPARISONS: September 23, 2016 TECHNIQUE: Multiple contiguous axial CT scans were obtained of the head without intravenous contrast. FINDINGS: HEMORRHAGE/INFARCT: There is no hemorrhage or acute infarct. MASSES/SHIFT: There is no mass or shift. EXTRA-AXIAL SPACES: There are no extra-axial fluid collections. SULCI AND VENTRICLES: The sulci and ventricles are normal in size and position for the patient's stated age. CEREBRUM: There are no focal parenchymal abnormalities. BRAINSTEM: There are no focal parenchymal abnormalities. CEREBELLUM: There are no focal parenchymal abnormalities. VESSELS: The vessels are grossly normal. PARANASAL SINUSES: The paranasal sinuses are clear. ORBITS: The orbits are unremarkable. BONES AND SOFT TISSUE: No bone or soft tissue abnormalities are noted. OTHER: None IMPRESSION: NO ACUTE INTRACRANIAL PATHOLOGY.
--- NOTE | 2016-09-24 16:27 | ECHO ---
Patient: [facility] Rec#: [id number] : 1980 Date: 09/24/2016 Age: 36y Height: 180.3 cm / 71.0 in Weight: 77.6 kg / 171.0 lbs Sex: M BSA: 1.97 Room#: [facility]- Admit Date#: 09/23/2016 Type: Inpatient Referring: Richard Root MD Reading: Lauren Hyde MD Cable Ferryboat Operator: Aruora Meyers Cable Ferryboat Operator: Nelly Sánchez RN RDCS CC: Boni Wells MD CC: Mauro Huber MD Transthoracic Echocardiogram Indication: CVA S/P t-PA BP: 100/59 HR: 60 Rhythm: Paced Findings History: HTN, chronic A-FIB, s/p pacer, positive family history of CAD, unnamed/unidentified congenital neurologic syndrome, corrected pectus excavatum, ataxia. Technical Comments: The study is technically limited due to patient body habitus. Completed at 1025. Left Ventricle: The left ventricular chamber size is mildly dilated. There is moderately decreased left ventricular systolic function. The estimated ejection fraction is 30-35%. There is abnormal ventricular septal wall motion consistent with right ventricular pacemaker. The assessment of diastolic function is non-diagnostic. Left Atrium: The left atrium is mildly dilated. Right Ventricle: The right ventricular cavity size is normal. The right ventricular global systolic function is low normal. A pacemaker wire is visualized in the right ventricle. Right Atrium: The right atrium is mild to moderately dilated. A pacemaker wire is visualized in the right atrium. Interatrial septum appears intact without evidence of shunting. There is no patent foramen ovale visualized. The bubble study is negative. Aortic Valve: The aortic valve is trileaflet. The aortic valve leaflets are mildly thickened. There is a trace of aortic regurgitation. There is no evidence of aortic stenosis. Mitral Valve: The mitral valve leaflets are mildly thickened. There is mild mitral regurgitation. There is no evidence of mitral stenosis. Tricuspid Valve: The tricuspid valve leaflets are normal. There is mild tricuspid regurgitation. No pulmonary hypertension is noted. There is no tricuspid stenosis. Pulmonic Valve: The pulmonic valve appears normal. There is a trace pulmonic regurgitation. There is no pulmonic stenosis. Pericardium: There is no pericardial effusion. Aorta: There is no dilatation of the ascending aorta. There is no dilatation of the aortic arch. There is no dilation of the aortic root. Pulmonary Artery: The main pulmonary artery appears normal. Venous: The venous system is not well visualized. The inferior vena cava is not visualized. Contrast: Normal saline was used as contrast for the bubble study. image 100. Intravenous contrast was used to help determine presence of intracardiac shunting. Summary: There are changes noted when compared to the previous study done on 11/14/2014, LV EF is less now from 45-50% then. Conclusions There is moderately decreased left ventricular systolic function. The estimated ejection fraction is 30-35%. The assessment of diastolic function is non-diagnostic. The left atrium is mildly dilated. A pacemaker wire is visualized in the right ventricle. A pacemaker wire is visualized in the right atrium. There is no patent foramen ovale visualized. The bubble study is negative. There is a trace of aortic regurgitation. There is mild mitral regurgitation. There is mild tricuspid regurgitation. There is a trace pulmonic regurgitation. Measurements Name Value Normal Range RVDdMajor (2D) 3.8 cm (2.2 - 4.4) RAd ISD 4CH 6.8 cm (3.4 - 4.9) RA (A4C)W 3.8 cm (2.9 - 4.6) IVSd (2D) 1 cm (0.6 - 1) LVPWd (2D) 0.9 cm (0.6 - 1) LVIDd (2D) 5.5 cm (3.6 - 5.4) LVIDs (2D) 4.3 cm - LV FS (2D) 22 % (25 - 45) Aortic Annulus 2 cm (1.4 - 2.6) Ao root diameter (2D) 2.2 cm (2.1 - 3.5) Ascending Ao 2.8 cm (2.1 - 3.4) Aortic arch 2.6 cm (1.8 - 3.4) LA dimension (AP) 2D 3.2 cm (2.3 - 3.8) LAd ISD 4CH 6.3 cm (2.9 - 5.3) LA ISD 4CH W 2.8 cm (2.5 - 4.5) Name Value Normal Range LA ESV SP 4CH (A/L) 42 ml - LA ESV SP 2CH (A/L) 61 ml - LA ESV BP (A/L) 54 ml - LA ESV BP (A/L) index 27 ml/m2 - LA ESV SP 4CH (MOD) 40 ml - LA ESV SP 2CH (MOD) 60 ml - Name Value Normal Range MV E-wave Vmax 0.9 m/sec - MV deceleration time 147 msec - MV A-wave Vmax 0.5 m/sec - MV E:A ratio 1.9 ratio - LV septal e' Vmax 0.1 m/sec - LV lateral e' Vmax 0.18 m/sec - LV E:e' septal ratio 9 ratio - LV E:e' lateral ratio 5 ratio - Name Value Normal Range AV Vmax 1.6 m/sec - AV VTI 32 cm - AV peak gradient 8.16 mmHg - AV mean gradient 5.98 mmHg - LVOT Vmax 1.1 m/sec - LVOT VTI 20.2 cm - LVOT peak gradient 4.6 mmHg - LVOT mean gradient 2.6 mmHg - JUSTYN Vmax 0.83 m/sec - Name Value Normal Range TR Vmax 2.3 m/sec - TR peak gradient 21 mmHg - RAP 8 mmHg - RVSP 29 mmHg - Name Value Normal Range PV Vmax 0.73 m/sec - PV peak gradient 2.1 mmHg -
--- NOTE | 2016-09-24 18:28 | PN ---
Subjective Date of Service: 09/24/16 Interval History: Seen with mother at bedside. Had reeat CT <24 hrs after administration of tPA. Mother clearly upset that this occurred. Pt feels back to baseline, dysarthria is baseline, denies weakness, paresthesias, GONSALVES, N/V Objective Active Medications: Acetaminophen (Tylenol Tab*) 650 mg PO Q6H PRN PRN Reason: FEVER/PAIN Docusate Sodium (Colace Cap*) 200 mg PO BID [facility] Last Admin: 09/24/16 09:00 Dose: 200 mg Sodium Chloride (Ns 0.9% 1000 Ml*) 1,000 mls @ 125 mls/hr IV PER RATE [facility] Last Admin: 09/24/16 16:56 Dose: 125 mls/hr Lisinopril (Prinivil Tab*) 2.5 mg PO DAILY [facility] Last Admin: 09/24/16 09:05 Dose: 2.5 mg Nebivolol (Bystolic Tab (Nf)) 2.5 mg PO DAILY [facility] Last Admin: 09/24/16 09:00 Dose: 2.5 mg Ondansetron HCl (Zofran Inj*) 4 mg IV Q6H PRN PRN Reason: NAUSEA Pantoprazole Sodium (Protonix Iv*) 40 mg IV DAILY [facility] Last Admin: 09/24/16 09:05 Dose: 40 mg Prochlorperazine Edisylate (Compazine Inj*) 10 mg IV Q6H PRN PRN Reason: NAUSEA Vital Signs 09/23/16 09/23/16 09/23/16 22:24 22:30 23:00 Temperature Pulse Rate 60 60 Respiratory 19 15 Rate Blood Pressure 131/56 104/48 (mmHg) O2 Sat by Pulse 99 96 Oximetry 09/23/16 09/23/16 09/23/16 23:19 23:30 23:48 Temperature Pulse Rate 59 58 60 Respiratory 15 18 16 Rate Blood Pressure 114/63 114/63 (mmHg) O2 Sat by Pulse 97 98 Oximetry 09/23/16 09/24/16 09/24/16 23:55 00:00 00:01 Temperature 99.1 F Pulse Rate 64 59 59 Respiratory 17 14 16 Rate Blood Pressure 122/60 110/59 (mmHg) O2 Sat by Pulse 93 97 96 Oximetry 09/24/16 09/24/16 09/24/16 00:23 00:45 01:00 Temperature Pulse Rate 59 60 60 Respiratory 18 16 18 Rate Blood Pressure 110/59 111/60 107/52 (mmHg) O2 Sat by Pulse 94 94 94 Oximetry 09/24/16 09/24/16 09/24/16 01:15 01:30 01:31 Temperature Pulse Rate 60 60 60 Respiratory 20 19 15 Rate Blood Pressure 114/60 71/48 107/64 (mmHg) O2 Sat by Pulse 94 94 94 Oximetry 09/24/16 09/24/16 09/24/16 01:45 02:00 02:15 Temperature Pulse Rate 60 59 60 Respiratory 18 18 15 Rate Blood Pressure 110/58 103/57 96/56 (mmHg) O2 Sat by Pulse 94 94 94 Oximetry 09/24/16 09/24/16 09/24/16 02:30 02:45 02:56 Temperature Pulse Rate 60 60 Respiratory 17 18 12 Rate Blood Pressure 93/56 107/54 (mmHg) O2 Sat by Pulse 94 95 Oximetry 09/24/16 09/24/16 09/24/16 03:00 03:15 03:30 Temperature Pulse Rate 60 60 60 Respiratory 10 15 20 Rate Blood Pressure 101/51 96/54 98/55 (mmHg) O2 Sat by Pulse 94 95 95 Oximetry 09/24/16 09/24/16 09/24/16 03:45 03:58 04:00 Temperature 99.2 F Pulse Rate 60 60 Respiratory 18 17 17 Rate Blood Pressure 94/49 94/50 (mmHg) O2 Sat by Pulse 95 94 Oximetry 09/24/16 09/24/16 09/24/16 04:15 04:30 04:45 Temperature Pulse Rate 60 60 60 Respiratory 15 17 16 Rate Blood Pressure 99/59 98/52 93/52 (mmHg) O2 Sat by Pulse 95 97 95 Oximetry 09/24/16 09/24/16 09/24/16 04:55 05:00 05:15 Temperature Pulse Rate 60 60 Respiratory 14 19 16 Rate Blood Pressure 102/51 92/49 (mmHg) O2 Sat by Pulse 96 95 Oximetry 09/24/16 09/24/16 09/24/16 05:30 05:45 05:52 Temperature Pulse Rate 60 60 Respiratory 17 17 16 Rate Blood Pressure 100/51 101/55 (mmHg) O2 Sat by Pulse 96 96 Oximetry 09/24/16 09/24/16 09/24/16 06:00 06:06 06:15 Temperature Pulse Rate 60 60 Respiratory 16 15 Rate Blood Pressure 104/58 101/58 (mmHg) O2 Sat by Pulse 95 97 95 Oximetry 09/24/16 09/24/16 09/24/16 06:30 06:45 07:00 Temperature Pulse Rate 60 60 60 Respiratory 15 17 17 Rate Blood Pressure 99/53 106/47 100/59 (mmHg) O2 Sat by Pulse 95 96 95 Oximetry 09/24/16 09/24/16 09/24/16 07:15 07:19 07:21 Temperature Pulse Rate 60 Respiratory 18 13 13 Rate Blood Pressure 100/54 (mmHg) O2 Sat by Pulse 96 Oximetry 09/24/16 09/24/16 09/24/16 07:30 07:45 08:00 Temperature 99.6 F Pulse Rate 60 60 61 Respiratory 15 17 19 Rate Blood Pressure 104/54 103/55 (mmHg) O2 Sat by Pulse 95 96 96 Oximetry 09/24/16 09/24/16 09/24/16 08:50 09:00 09:25 Temperature Pulse Rate 61 Respiratory 16 15 Rate Blood Pressure 108/61 (mmHg) O2 Sat by Pulse 96 96 Oximetry 09/24/16 09/24/16 09/24/16 09:50 10:00 10:53 Temperature Pulse Rate 60 Respiratory 18 20 14 Rate Blood Pressure 104/62 (mmHg) O2 Sat by Pulse 96 Oximetry 09/24/16 09/24/16 09/24/16 11:00 11:22 12:00 Temperature 98.9 F Pulse Rate 60 61 Respiratory 20 19 Rate Blood Pressure 106/57 104/59 (mmHg) O2 Sat by Pulse 96 95 Oximetry 09/24/16 09/24/16 09/24/16 12:50 13:00 13:50 Temperature Pulse Rate 60 Respiratory 16 14 19 Rate Blood Pressure (mmHg) O2 Sat by Pulse 95 Oximetry 09/24/16 09/24/16 09/24/16 14:00 14:48 15:00 Temperature Pulse Rate 60 60 Respiratory 17 16 21 Rate Blood Pressure 100/55 (mmHg) O2 Sat by Pulse 95 95 Oximetry 09/24/16 09/24/16 09/24/16 15:43 15:49 16:00 Temperature 99.4 F Pulse Rate 60 Respiratory 16 17 Rate Blood Pressure 102/57 (mmHg) O2 Sat by Pulse 94 Oximetry 09/24/16 09/24/16 09/24/16 16:46 17:00 17:41 Temperature Pulse Rate 60 Respiratory 18 20 17 Rate Blood Pressure 103/59 (mmHg) O2 Sat by Pulse 95 Oximetry Oxygen Devices in Use Now: None Appearance: NAD Eyes: No Scleral Icterus, PERRLA Ears/Nose/Mouth/Throat: NL Teeth, Lips, Gums, Clear Oropharnyx, Mucous Membranes Moist Neck: NL Appearance and Movements; NL JVP, Trachea Midline Respiratory: Symmetrical Chest Expansion and Respiratory Effort, Clear to Auscultation Cardiovascular: NL Sounds; No Murmurs; No JVD, RRR Abdominal: NL Sounds; No Tenderness; No Distention Lymphatic: No Cervical Adenopathy Extremities: No Edema Skin: No Rash or Ulcers Neurological: Alert and Oriented x 3, - - +dysarthria described as baseline Lines/Tubes/Other Access: Clean, Dry and Intact [place] Result Diagrams: 09/24/16 05:50 09/24/16 05:50 Additional Lab and Data: Lab Results 09/23/16 09/23/16 09/23/16 Range/Units 20:50 20:50 20:50 WBC 4.7 (3.5-10.8) 10^3/ul RBC 4.98 (4.0-5.4) 10^6/ul Hgb 14.6 (14.0-18.0) g/dl Hct 44 (42-52) % MCV 87 (80-94) fL MCH 29 (27-31) pg MCHC 34 (31-36) g/dl RDW 14 (10.5-15) % Plt Count 264 (150-450) 10^3/ul MPV 7 L (7.4-10.4) um3 Neut % (Auto) 38.2 (38-83) % Lymph % (Auto) 42.8 (25-47) % [place] % (Auto) 16.8 H (1-9) % Eos % (Auto) 1.3 (0-6) % Baso % (Auto) 0.9 (0-2) % Absolute Neuts (auto) 1.8 (1.5-7.7) 10^3/ul Absolute Lymphs (auto) 2.0 (1.0-4.8) 10^3/ul Absolute Monos (auto) 0.8 (0-0.8) 10^3/ul Absolute Eos (auto) 0.1 (0-0.6) 10^3/ul Absolute Basos (auto) 0 (0-0.2) 10^3/ul Absolute Nucleated RBC 0.01 10^3/ul Nucleated RBC % 0.2 INR (Anticoag Therapy) 1.00 (0.89-1.11) APTT 31.8 (26.0-36.3) seconds Sodium 134 (133-145) mmol/L Potassium 4.1 (3.5-5.0) mmol/L Chloride 99 L (101-111) mmol/L Carbon Dioxide 29 (22-32) mmol/L Anion Gap 6 (2-11) mmol/L BUN 19 (6-24) mg/dL Creatinine 0.98 (0.67-1.17) mg/dL Est GFR ( Amer) 110.1 (>60) Est GFR (Non-Af Amer) 85.6 (>60) BUN/Creatinine Ratio 19.4 (8-20) Glucose 95 (70-100) mg/dL Lactic Acid (0.5-2.0) mmol/L Calcium 9.5 (8.6-10.3) mg/dL Total Bilirubin 0.70 (0.2-1.0) mg/dL AST 19 (13-39) U/L ALT 13 (7-52) U/L Alkaline Phosphatase 65 (34-104) U/L Troponin I 0.01 (<0.04) ng/mL Total Protein 8.1 (6.4-8.9) g/dL Albumin 4.5 (3.2-5.2) g/dL Globulin 3.6 (2-4) g/dL Albumin/Globulin Ratio 1.3 (1-3) Triglycerides 215 mg/dL Cholesterol 208 mg/dL LDL Cholesterol 132 mg/dL HDL Cholesterol 33.5 mg/dL Urine Color Urine Appearance Urine pH (5-9) Ur Specific [place] (1.010-1.030) Urine Protein (Negative) Urine Ketones (Negative) Urine Blood (Negative) Urine Nitrate (Negative) Urine Bilirubin (Negative) Urine Urobilinogen (Negative) Ur Leukocyte Esterase (Negative) Urine WBC (Auto) (Absent) Urine RBC (Auto) (Absent) Urine Bacteria (Absent) Hyaline Casts (Absent) Urine Glucose (Negative) Blood Type Antibody Screen 09/23/16 09/23/16 09/23/16 Range/Units 20:50 20:50 21:51 WBC (3.5-10.8) 10^3/ul RBC (4.0-5.4) 10^6/ul Hgb (14.0-18.0) g/dl Hct (42-52) % MCV (80-94) fL MCH (27-31) pg MCHC (31-36) g/dl RDW (10.5-15) % Plt Count (150-450) 10^3/ul MPV (7.4-10.4) um3 Neut % (Auto) (38-83) % Lymph % (Auto) (25-47) % [place] % (Auto) (1-9) % Eos % (Auto) (0-6) % Baso % (Auto) (0-2) % Absolute Neuts (auto) (1.5-7.7) 10^3/ul Absolute Lymphs (auto) (1.0-4.8) 10^3/ul Absolute Monos (auto) (0-0.8) 10^3/ul Absolute Eos (auto) (0-0.6) 10^3/ul Absolute Basos (auto) (0-0.2) 10^3/ul Absolute Nucleated RBC 10^3/ul Nucleated RBC % INR (Anticoag Therapy) (0.89-1.11) APTT (26.0-36.3) seconds Sodium (133-145) mmol/L Potassium (3.5-5.0) mmol/L Chloride (101-111) mmol/L Carbon Dioxide (22-32) mmol/L Anion Gap (2-11) mmol/L BUN (6-24) mg/dL Creatinine (0.67-1.17) mg/dL Est GFR ( Amer) (>60) Est GFR (Non-Af Amer) (>60) BUN/Creatinine Ratio (8-20) Glucose (70-100) mg/dL Lactic Acid 0.8 (0.5-2.0) mmol/L Calcium (8.6-10.3) mg/dL Total Bilirubin (0.2-1.0) mg/dL AST (13-39) U/L ALT (7-52) U/L Alkaline Phosphatase (34-104) U/L Troponin I (<0.04) ng/mL Total Protein (6.4-8.9) g/dL Albumin (3.2-5.2) g/dL Globulin (2-4) g/dL Albumin/Globulin Ratio (1-3) Triglycerides mg/dL Cholesterol mg/dL LDL Cholesterol mg/dL HDL Cholesterol mg/dL Urine Color Yellow Urine Appearance Clear Urine pH 6.0 (5-9) Ur Specific [place] 1.019 (1.010-1.030) Urine Protein 1+(30 mg/dl) H (Negative) Urine Ketones Negative (Negative) Urine Blood 2+ H (Negative) Urine Nitrate Negative (Negative) Urine Bilirubin Negative (Negative) Urine Urobilinogen Negative (Negative) Ur Leukocyte Esterase Negative (Negative) Urine WBC (Auto) Trace(0-5/hpf) (Absent) Urine RBC (Auto) 2+(6-10/hpf) H (Absent) Urine Bacteria Absent (Absent) Hyaline Casts Present H (Absent) Urine Glucose Negative (Negative) Blood Type O Positive Antibody Screen Negative Microbiology and Other Data: Microbiology 09/24/16 00:55 Nasal Screen MRSA (PCR)(ISMAEL) - Final Nasal Mrsa Negative Assess/Plan/Problems-Billing Assessment: 36 yo M h/o congenital disorder, chronic afib previously on ASA w/PPM p/w suspect CVA s/p tPA on 09/23/16 at 2200 - Patient Problems (1) CVA (cerebral vascular accident) Comment: s/p tPA TPA protocol - repeat CT 24 hrs after tpa administration, NPO until 24hrs, [facility] can come out after 24 hrs. ASA therapy after CT rules out any hemorrhage Will need couamdin in setting of afib but timing not set. Dr. Buckley deferring to Dr. Joel tomorrow after CT head performed tonight. (2) Afib Comment: will need AC. Timing to be decided after CT head as indicated above (3) DVT prophylaxis Comment: scds
--- NOTE | 2016-09-24 21:05 | EEG ---
ELECTROENCEPHALOGRAPHY: DATE OF STUDY: 09/24/16 DATE OF DICTATION: 09/24/16 PATIENT OF: Federico Rivera MD HISTORY: This is a 36-year-old man being evaluated for stroke with a possible seizure. MEDICATIONS: He is status post TPA. INTERPRETATION: With the patient awake, background cerebral activity consisted of moderate amplitude posterior dominant 12 Hz rhythm. With the patient drowsy , there is some slowing to the theta range. Muscle movement artifacts are noted. No clearcut epileptiform potentials, focal abnormalities, or major asymmetries of background are noted. IMPRESSION: This awake and drowsy EEG is within normal limits. [id number]/[facility] #: [id number] [facility]
--- NOTE | 2016-09-24 22:49 | RAD ---
HISTORY: Status post tPA administration COMPARISONS: September 24, 2016 at 12:15 PM TECHNIQUE: Multiple contiguous axial CT scans were obtained of the head without intravenous contrast. FINDINGS: HEMORRHAGE/INFARCT: There is no hemorrhage or acute infarct. MASSES/SHIFT: There is no mass or shift. EXTRA-AXIAL SPACES: There are no extra-axial fluid collections. SULCI AND VENTRICLES: The sulci and ventricles are normal in size and position for the patient's stated age. CEREBRUM: There are no focal parenchymal abnormalities. BRAINSTEM: There are no focal parenchymal abnormalities. CEREBELLUM: There are no focal parenchymal abnormalities. VESSELS: The vessels are grossly normal. PARANASAL SINUSES: The paranasal sinuses are clear. ORBITS: The orbits are unremarkable. BONES AND SOFT TISSUE: No bone or soft tissue abnormalities are noted. OTHER: None IMPRESSION: NO ACUTE INTRACRANIAL PATHOLOGY.
[2016-09-25] MEDS: Aspirin TAB* 325 MG PO SCH ×2 (00:24→09:43)
[2016-09-25] MEDS: NS 0.9% 1000 ML* 1,000 ML IV SCH (01:05)
[2016-09-25 05:41] LABS: Hematocrit 42 % (42-52); Mean Corpuscular HGB Conc 33 g/dl (31-36); Mean Corpuscular Hemoglobin 29 pg (27-31); Mean Corpuscular Volume 88 fL (80-94); Mean Platelet Volume 7 um3 (7.4-10.4); Red Cell Distribution Width 14 % (10.5-15)
[2016-09-25 05:46] LABS: Comments Flag Yes; White Blood Count 3.4 10^3/ul (3.5-10.8)
[2016-09-25 05:51] LABS: BUN/Creatinine Ratio 14.7 (8-20); EGFR African American 114.1 (>60); EGFR Non-African American 88.7 (>60); Potassium 3.9 mmol/L (3.5-5.0)
--- NOTE | 2016-09-25 08:28 | PN ---
Subjective Date of Service: 09/25/16 Interval History: Patient back to his baseline. mom at bedside who confirms this. Patient reports he "feels good". Reports weakness has resolved. Denies any deficits. Offers no complaints. Mom and patient were unaware that his LVEF had dropped form 2 years ago and are upset by this. Pt denies sob, no orthopnea. No recent illnesses. Discussed AC with pt and mom and that will defer to neurology when it can be started. Objective Active Medications: Acetaminophen (Tylenol Tab*) 650 mg PO Q6H PRN PRN Reason: FEVER/PAIN Aspirin (Aspirin Tab*) 325 mg PO DAILY [facility] Last Admin: 09/25/16 00:24 Dose: 325 mg Docusate Sodium (Colace Cap*) 200 mg PO BID [facility] Last Admin: 09/24/16 20:49 Dose: 200 mg Sodium Chloride (Ns 0.9% 1000 Ml*) 1,000 mls @ 125 mls/hr IV PER RATE [facility] Last Admin: 09/25/16 01:05 Dose: 125 mls/hr Lisinopril (Prinivil Tab*) 2.5 mg PO DAILY [facility] Last Admin: 09/24/16 09:05 Dose: 2.5 mg Nebivolol (Bystolic Tab (Nf)) 2.5 mg PO DAILY [facility] Last Admin: 09/24/16 09:00 Dose: 2.5 mg Ondansetron HCl (Zofran Inj*) 4 mg IV Q6H PRN PRN Reason: NAUSEA Pantoprazole Sodium (Protonix Iv*) 40 mg IV DAILY [facility] Last Admin: 09/24/16 09:05 Dose: 40 mg Prochlorperazine Edisylate (Compazine Inj*) 10 mg IV Q6H PRN PRN Reason: NAUSEA Vital Signs 09/24/16 09/24/16 09/25/16 23:08 23:26 00:00 Temperature 98.5 F Pulse Rate 60 60 Respiratory 17 15 Rate Blood Pressure (mmHg) O2 Sat by Pulse 94 95 Oximetry 09/25/16 09/25/16 09/25/16 00:01 01:00 02:00 Temperature Pulse Rate 61 60 60 Respiratory 17 19 16 Rate Blood Pressure 98/66 101/51 109/61 (mmHg) O2 Sat by Pulse 94 94 95 Oximetry 09/25/16 09/25/16 09/25/16 03:00 03:36 04:00 Temperature 98.0 F Pulse Rate 60 60 Respiratory 15 19 Rate Blood Pressure 101/58 98/55 (mmHg) O2 Sat by Pulse 94 95 Oximetry 09/25/16 09/25/16 09/25/16 05:00 06:00 07:36 Temperature 97.7 F Pulse Rate 64 60 Respiratory 18 17 Rate Blood Pressure 97/53 101/49 (mmHg) O2 Sat by Pulse 94 98 Oximetry Oxygen Devices in Use Now: None Appearance: 36 yo male A+O x3, mild MR, good historian, slurred speech but this is his baseline Eyes: No Scleral Icterus, PERRLA Ears/Nose/Mouth/Throat: NL Teeth, Lips, Gums, Clear Oropharnyx, Mucous Membranes Moist Neck: NL Appearance and Movements; NL JVP Respiratory: Symmetrical Chest Expansion and Respiratory Effort, Clear to Auscultation Cardiovascular: NL Sounds; No Murmurs; No JVD, RRR, No Edema Abdominal: NL Sounds; No Tenderness; No Distention Extremities: No Edema, No Clubbing, Cyanosis Skin: No Rash or Ulcers, No Nodules or Sclerosis Neurological: Alert and Oriented x 3, NL Sensation, NL Muscle Strength and Tone Lines/Tubes/Other Access: Clean, Dry and Intact Peripheral IV Nutrition: Taking PO's Result Diagrams: 09/25/16 05:15 09/25/16 05:15 Additional Lab and Data: Lab Results 09/23/16 09/23/16 09/23/16 Range/Units 20:50 20:50 20:50 WBC 4.7 (3.5-10.8) 10^3/ul RBC 4.98 (4.0-5.4) 10^6/ul Hgb 14.6 (14.0-18.0) g/dl Hct 44 (42-52) % MCV 87 (80-94) fL MCH 29 (27-31) pg MCHC 34 (31-36) g/dl RDW 14 (10.5-15) % Plt Count 264 (150-450) 10^3/ul MPV 7 L (7.4-10.4) um3 Neut % (Auto) 38.2 (38-83) % Lymph % (Auto) 42.8 (25-47) % [place] % (Auto) 16.8 H (1-9) % Eos % (Auto) 1.3 (0-6) % Baso % (Auto) 0.9 (0-2) % Absolute Neuts (auto) 1.8 (1.5-7.7) 10^3/ul Absolute Lymphs (auto) 2.0 (1.0-4.8) 10^3/ul Absolute Monos (auto) 0.8 (0-0.8) 10^3/ul Absolute Eos (auto) 0.1 (0-0.6) 10^3/ul Absolute Basos (auto) 0 (0-0.2) 10^3/ul Absolute Nucleated RBC 0.01 10^3/ul Nucleated RBC % 0.2 INR (Anticoag Therapy) 1.00 (0.89-1.11) APTT 31.8 (26.0-36.3) seconds Sodium 134 (133-145) mmol/L Potassium 4.1 (3.5-5.0) mmol/L Chloride 99 L (101-111) mmol/L Carbon Dioxide 29 (22-32) mmol/L Anion Gap 6 (2-11) mmol/L BUN 19 (6-24) mg/dL Creatinine 0.98 (0.67-1.17) mg/dL Est GFR ( Amer) 110.1 (>60) Est GFR (Non-Af Amer) 85.6 (>60) BUN/Creatinine Ratio 19.4 (8-20) Glucose 95 (70-100) mg/dL Lactic Acid (0.5-2.0) mmol/L Calcium 9.5 (8.6-10.3) mg/dL Total Bilirubin 0.70 (0.2-1.0) mg/dL AST 19 (13-39) U/L ALT 13 (7-52) U/L Alkaline Phosphatase 65 (34-104) U/L Troponin I 0.01 (<0.04) ng/mL Total Protein 8.1 (6.4-8.9) g/dL Albumin 4.5 (3.2-5.2) g/dL Globulin 3.6 (2-4) g/dL Albumin/Globulin Ratio 1.3 (1-3) Triglycerides 215 mg/dL Cholesterol 208 mg/dL LDL Cholesterol 132 mg/dL HDL Cholesterol 33.5 mg/dL Urine Color Urine Appearance Urine pH (5-9) Ur Specific [place] (1.010-1.030) Urine Protein (Negative) Urine Ketones (Negative) Urine Blood (Negative) Urine Nitrate (Negative) Urine Bilirubin (Negative) Urine Urobilinogen (Negative) Ur Leukocyte Esterase (Negative) Urine WBC (Auto) (Absent) Urine RBC (Auto) (Absent) Urine Bacteria (Absent) Hyaline Casts (Absent) Urine Glucose (Negative) Blood Type Antibody Screen 09/23/16 09/23/16 09/23/16 Range/Units 20:50 20:50 21:51 WBC (3.5-10.8) 10^3/ul RBC (4.0-5.4) 10^6/ul Hgb (14.0-18.0) g/dl Hct (42-52) % MCV (80-94) fL MCH (27-31) pg MCHC (31-36) g/dl RDW (10.5-15) % Plt Count (150-450) 10^3/ul MPV (7.4-10.4) um3 Neut % (Auto) (38-83) % Lymph % (Auto) (25-47) % [place] % (Auto) (1-9) % Eos % (Auto) (0-6) % Baso % (Auto) (0-2) % Absolute Neuts (auto) (1.5-7.7) 10^3/ul Absolute Lymphs (auto) (1.0-4.8) 10^3/ul Absolute Monos (auto) (0-0.8) 10^3/ul Absolute Eos (auto) (0-0.6) 10^3/ul Absolute Basos (auto) (0-0.2) 10^3/ul Absolute Nucleated RBC 10^3/ul Nucleated RBC % INR (Anticoag Therapy) (0.89-1.11) APTT (26.0-36.3) seconds Sodium (133-145) mmol/L Potassium (3.5-5.0) mmol/L Chloride (101-111) mmol/L Carbon Dioxide (22-32) mmol/L Anion Gap (2-11) mmol/L BUN (6-24) mg/dL Creatinine (0.67-1.17) mg/dL Est GFR ( Amer) (>60) Est GFR (Non-Af Amer) (>60) BUN/Creatinine Ratio (8-20) Glucose (70-100) mg/dL Lactic Acid 0.8 (0.5-2.0) mmol/L Calcium (8.6-10.3) mg/dL Total Bilirubin (0.2-1.0) mg/dL AST (13-39) U/L ALT (7-52) U/L Alkaline Phosphatase (34-104) U/L Troponin I (<0.04) ng/mL Total Protein (6.4-8.9) g/dL Albumin (3.2-5.2) g/dL Globulin (2-4) g/dL Albumin/Globulin Ratio (1-3) Triglycerides mg/dL Cholesterol mg/dL LDL Cholesterol mg/dL HDL Cholesterol mg/dL Urine Color Yellow Urine Appearance Clear Urine pH 6.0 (5-9) Ur Specific [place] 1.019 (1.010-1.030) Urine Protein 1+(30 mg/dl) H (Negative) Urine Ketones Negative (Negative) Urine Blood 2+ H (Negative) Urine Nitrate Negative (Negative) Urine Bilirubin Negative (Negative) Urine Urobilinogen Negative (Negative) Ur Leukocyte Esterase Negative (Negative) Urine WBC (Auto) Trace(0-5/hpf) (Absent) Urine RBC (Auto) 2+(6-10/hpf) H (Absent) Urine Bacteria Absent (Absent) Hyaline Casts Present H (Absent) Urine Glucose Negative (Negative) Blood Type O Positive Antibody Screen Negative Microbiology and Other Data: Microbiology 09/24/16 00:55 Nasal Screen MRSA (PCR)(ISMAEL) - Final Nasal Mrsa Negative Assess/Plan/Problems-Billing Assessment: 36 yo M h/o congenital disorder, chronic afib previously on ASA w/PPM p/w suspect CVA s/p tPA on 09/23/16 at 2200 - Patient Problems (1) CVA (cerebral vascular accident) Comment: TIA vs CVA - Pt back to his baseline. s/p tPA 09/23 TPA protocol - repeat CT 24 hrs after tpa administration last evening 09/24 - negative for acute intracranial bleed pathology Antiplatelet therapy starting today - ASA daily. will check with neurology on recommended dosing Will need coumadin or NOAC in setting of afib but timing not set, will defer to neurology Per Neuro - seizure less likely, EEG negative - no indication to start anticonvulsant at this time. (2) Afib Comment: will need AC. Timing to be decided by neuro (3) DVT prophylaxis Comment: scds (4) Full code status Status and Disposition: inpatient with TIA/CVA. DC to home when medically stable - today vs tomorrow.
[2016-09-25] MEDS: Pantoprazole IV* 40 MG IV SCH (09:42)
[2016-09-25] MEDS: CMCS Nebivolol TAB (NF) 2.5 MG TAB PO SCH (09:42)
[2016-09-25] MEDS: Lisinopril TAB* 5 MG PO SCH (09:43)
[2016-09-25] MEDS: Docusate CAP* 100 MG PO SCH (09:44)
[2016-09-25 16:32] VITALS: BP 108/60
--- NOTE | 2016-09-26 08:36 | DS ---
DISCHARGE SUMMARY: DATE OF ADMISSION: 09/23/16 DATE OF DISCHARGE: 09/25/16 PROVIDER: Humaira Gomez NP. ATTENDING PHYSICIAN: Mauro Huber MD *(report dictated by Humaira Gomez NP). PRIMARY CARE PROVIDER: Mauro Huber MD. NEUROLOGIST: Federico Rivera MD. CLASSROOM AIDE: Boni Wells MD. PRIMARY DIAGNOSES: 1. Transient ischemic attack versus cerebrovascular accident, status post tPA. 2. Cardiomyopathy with an EF of 30% to 35%, down from 45%. SECONDARY DIAGNOSES: 1. Chronic atrial fibrillation, status post pacemaker. 2. Hypertension. 3. Unnamed/unidentified congenital neurologic syndrome, status post extensive workup, with tunnel vision, speech impediment, ataxia, and mild MR. 4. Left exotropia. DISCHARGE MEDICATIONS: 1. Fish oil 1 tab p.o. daily. 2. Aspirin 325 mg p.o. daily, to be discontinued when the patient starts Eliquis in 2 to 3 days. 3. Eliquis 5 mg p.o. b.i.d. to be started in 2 to 3 days, on 09/27/16 or . 4. Bystolic 2.5 mg p.o. daily. 5. Lisinopril 2.5 mg p.o. daily. 6. Lactobacillus 1 cap p.o. daily. 7. Atorvastatin 40 mg p.o. daily at 1700, new medication. HISTORY OF PRESENT ILLNESS AND HOSPITAL COURSE: Please see history and physical by Dr. Root for full admission details, but in summary, this is a 36-year-old male with a past medical history of unnamed/unidentified congenital neurologic syndrome, chronic atrial fibrillation, status post pacemaker at age 13, who presented to emergency department on 09/23/16 with altered mental status. Mr. York lives with his parents, and his mother witnessed him to have an episode in which he came out of his room around 20:15, with right-sided facial droop, right- sided weakness, slurred speech, and difficulty finding words, as well as some possible right arm stiffness. The patient was immediately brought to the emergency department and Dr. Rivera, neurologist, evaluated him in the emergency department confirmed stroke symptoms , so the patient was initiated on tPA. He was admitted by the hospitalist service to the ICU for status post tPA protocol. On hospitalist evaluation, per patient and family, the patient was nearly back to his baseline, with only some mild word searching. Over his hospitalization, his symptoms have completely resolved and the patient is back to his baseline. On admission, the patient's brain CT showed no acute intracranial pathology. He underwent a head CTA, which showed "no aneurysm, vascular malformation, occlusion or stenosis in the visualized intracranial circulation. No intracranial carotid artery stenosis." Patient also underwent an EEG due to the reported symptoms of right arm stiffness and possible staring off during this episode. The EEG impression reads, "This is an awake and drowsy EEG within normal limits." A transthoracic echocardiogram was performed, which showed a "moderately decreased left ventricular systolic function". Estimated ejection fraction of 30% to 35%. Atrium is mildly dilated. Pacemaker wire was visualized in the right ventricle. There is no patent foramen ovale visualized. The bubble study is negative. There is trace aortic regurgitation. There is mild mitral regurgitation. There is mild tricuspid regurgitation. There is trace pulmonic regurgitation. Compared to TTE in 11/14/2014, the LVEF is less now from 45% to 50%. The patient had a repeat brain CT 24 hours after the tPA initiation per protocol , which showed "no acute intracranial pathology." The patient, on evaluation today, is back to his baseline. He is alert and oriented x3. His parents are at the bedside who state he is at his baseline. It was discussed with the patient that recommendation is for anticoagulation. I discussed with the patient and his family, as well as the neurologist, Dr. Gutiérrez, discussed the risks and benefits of anticoagulation. The patient and his parents state they understand the risks and benefits of initiation anticoagulation. The plan is to start Eliquis 5 mg p.o. b.i.d. The patient was instructed if he has any serious injuries, he needs to come to the emergency department to be evaluated. Dr. Gutiérrez does think it is possibly suspicious that the patient had this arm stiffness and which the mother thought that it looked very much like seizure activity. If the patient has another episode, she is to bring the patient to the emergency department and this was discussed with the parents and the patient that it was possible he did have a seizure. However, in the setting of atrial fibrillation, with his other stroke - like symptoms, the patient will be treated for a TIA/CVA. At discharge, the patient is stable, is ambulating, and is at his baseline. DISCHARGE PLAN: 1. Follow up with Dr. Mauro Huber within 7 days. 2. Follow up with Dr. Wells within 2 to 3 weeks. 3. Follow up with Dr. Rivera. The patient was instructed to call the office on Tuesday to make a followup appointment. 4. The patient reports that he is due for a pacemaker replacement some time in the near future. I strongly suggest a replacement with an MRI compatible pacemaker. 5. The patient was instructed that he may not drive. However, the patient does not drive at his baseline. CONDITION ON DISCHARGE: Stable. TIME SPENT: Approximately 60 minutes were spent on this discharge. This case was discussed with the attending physician as well as his primary care provider , Dr. Huber, who agrees with the plan of care. HUMAIRA GOMEZ NP CC: Dr. Mauro Huber; Dr. Federico Rivera; Dr. Boni Wells * [id number]/[facility] #: [id number] MTDD
--- NOTE | 2016-09-26 09:25 | PN ---
NEUROLOGIC PROGRESS NOTE: DATE OF SERVICE: HISTORY: Overnight, Mr. York has done well without any recurrence of neurologic symptoms. He feels essentially back to his baseline, except his mother notes that his walking seems a bit more unsteady than normal, and he is taking shorter strides. He had repeat CT scan last night, which was reviewed directly. MEDICATIONS: 1. Tylenol as needed. 2. Aspirin 325 mg daily. 3. Colace 200 mg twice daily. 4. Lisinopril 2.5 mg daily. 5. Bystolic 2.5 mg daily. 6. Zofran 4 mg as needed. 7. Protonix 40 mg daily. 8. Compazine 10 mg as needed. PHYSICAL EXAMINATION: Vital Signs: Temperature 97.6, blood pressure 99/57, heart rate 60, and oxygen saturation 97%. General: He is in no acute distress. Heart: Revealed a regular rate and rhythm, with no murmurs, rubs, or gallops. Lungs: Clear to auscultation bilaterally. Neurologic: He is fully awake, alert, and oriented. His speech is dysarthric and sometimes difficult to understand. There is no aphasia. On testing of his eye movements, he has a left exophoria. Versions are choppy, but full, and there is some horizontal nystagmus on rightward gaze. His visual zarate are impaired bilaterally, but this is reportedly chronic and due to a primary ocular disorder, per his mother. His face is symmetric in both strength and sensation. Palate elevates symmetrically and tongue is midline. On motor examination, he has spasticity in the lower extremities, which is his baseline. There is no pronator drift and strength is full in the upper and lower extremities. Sensation is intact to light touch in the upper and lower extremities. Reflexes were 2+ in the upper extremities, 3+ at the knees, and 2+ at the ankles, with downgoing toes bilaterally. [id number] is slow, but there is no luz ataxia. His gait is wide-based and he has somewhat of a steppage gait bilaterally, with some circumduction that is greater in the left than the right lower extremities. DIAGNOSTIC STUDIES/LAB DATA: Repeat head CT personally reviewed and was a normal study, without any evidence for hemorrhage. Laboratory studies reviewed today included a CBC with a stable, slightly low white count of 3.4. Chemistry was normal aside from a slight low glucose of 65 this morning. IMPRESSION: Yifan York is a 36-year-old man, who was treated with tPA for possible left hemispheric stroke and has essentially returned to his baseline aside from some slowness and unsteadiness in his gait. His mother also describes stiffening of his right arm and a vacant look on his face at the onset of these symptoms, which is somewhat suspicious for seizure, but he had an EEG, which was interpreted as normal. We discussed that at times, in a postictal period, patient can look like they have had a stroke, but on the other hand, sometimes folks have seizures at the onset of a stroke as well. Given his risk factors with his history of atrial fibrillation and the fact that the initial evaluation was felt to be most consistent with a stroke, I think it still makes sense to have him on oral anticoagulation and the mother is in agreement, as is Yifan. We discussed the novel oral anticoagulants, and Eliquis was suggested, which apparently the mother also spoke to Dr. Wells about. He will start this in the next day or two and once started he should stop aspirin. He should also have a followup with Dr. Rivera as an outpatient and mom is aware to call with any recurrent episodes that may be concerning for seizure. [id number]/[facility] #: [id number] [place]
== END 2016-09-25 17:50 | disposition home or self-care (01) | DRG 62 ==
LOC: ED 20:35 → ICU 22:15
PROVIDERS: ADMIT Hospitalist; ATTEND Internal Medicine
PROC: 3E03317 Introduction of Other Thrombolytic into Peripheral Vein, Percutaneous Approach (ICD-10-PCS; principal; 2016-09-23)
PROC: 4A00X4Z Measurement of Central Nervous Electrical Activity, External Approach (ICD-10-PCS; 2016-09-24)
DX: I63.9 Cerebral infarction, unspecified (principal); I42.9 Cardiomyopathy, unspecified; I48.92 Unspecified atrial flutter; Q87.89 Other specified congenital malformation syndromes, not elsewhere classified; I48.2 Chronic atrial fibrillation; Z95.0 Presence of cardiac pacemaker; I10 Essential (primary) hypertension; R47.81 Slurred speech; R29.810 Facial weakness; I08.3 Combined rheumatic disorders of mitral, aortic and tricuspid valves; R29.711 NIHSS score 11; Z82.49 Family history of ischemic heart disease and other diseases of the circulatory system; E78.9 Disorder of lipoprotein metabolism, unspecified; F79 Unspecified intellectual disabilities; Z79.01 Long term (current) use of anticoagulants
CPT/HCPCS: 36415; 70450; 70496; 70498; 71010; 80048; 80053; 80061; 81003; 81015; 83605; 84484; 85025; 85610; 85730; 86850; 86900; 86901; 87641; 93005; 93306; 95816; A9270-GY; J2997; Q9967

== ENCOUNTER 2017-01-26 11:35 | Observation (INO) | payer MEDICARE, MEDICAID ==
[2017-01-26] MEDS ORDERED: ceFAZolin 2 GM PREMIX(*) 2 GM/50 ML BAG IVPB ONE (13:00)
[2017-01-26 13:08] LABS: BUN/Creatinine Ratio 23.4 (8-20); C Reactive Protein 37.41 mg/L (< 5.00); Calcium 9.5 mg/dL (8.6-10.3); EGFR African American 115.5 (>60); EGFR Non-African American 89.8 (>60); Potassium 4.6 mmol/L (3.5-5.0)
[2017-01-26] MEDS ORDERED: Lidocaine 1% INJ* 10 MG/ML 30 ML SDV ONE (13:41)
[2017-01-26] MEDS ORDERED: Flumazenil* 0.1 MG/ML 5 ML MDV ONE (13:41)
[2017-01-26] MEDS ORDERED: Midazolam* 1 MG/ML 5 ML VIAL (5 MG) ONE (13:41)
[2017-01-26] MEDS ORDERED: Naloxone* 0.4 MG/ML 1 ML VIAL ONE (13:41)
[2017-01-26] MEDS ORDERED: fentaNYL* 50 MCG/ML 2 ML VIAL (100 MCG VIAL) ONE (13:41)
[2017-01-26] MEDS ORDERED: Acetaminophen TAB* 325 MG PO PRN (17:07)
[2017-01-26] MEDS: ceFAZolin 500 MG VIAL(*) 500 MG in NS 0.9% 50 ML* 50 ML IVPB SCH (20:58)
[2017-01-27] MEDS: ceFAZolin 500 MG VIAL(*) 500 MG in NS 0.9% 50 ML* 50 ML IVPB SCH ×3 (04:59→21:59)
--- NOTE | 2017-01-27 06:11 | OP ---
DATE OF OPERATION: 01/26/17 - ROOM #420 DATE OF : 76 SURGEON: Licha Barraza MD PRE-OP DIAGNOSIS: Pocket hematoma post generator change (complete heart block). POST-OP DIAGNOSIS: Pocket hematoma post generator change (complete heart block) . OPERATIVE PROCEDURE: ESTIMATED BLOOD LOSS: 10 cc. COMPLICATIONS: None. INDICATIONS: The patient is a 36-year-old male with congenital heart block requiring a pacemaker for many years, since 1993. He reached replacement. Underwent a generator change on 01/17/[address] Wells. Because of the history of infection with the past implant, the patient had an antibiotic infused mesh bag/antibiotic pouch and his pocket had been irrigated with antibiotic infused fluid. According to the patient and his parents, a couple of days after the procedure he stopped his antibiotics because of fevers and he had his entire chest look like a burn and there was some concern for a reaction to the antibiotic. Then, in the last couple of days, he had developed a hematoma and yesterday and today some erythema of the pocket, and he was referred back for hematoma extraction and cultures to ensure there is not a concomitant infection (outpatient cultures also taken). The indications, risks, and benefits of the procedure were discussed in depth with the patient and his parents. He was amenable to proceeding. DESCRIPTION OF PROCEDURE: Lidocaine was infused because of pain and the margaret were removed. Following this, the pacer site and the left subclavian fossa was prepped and draped in the usual sterile fashion and a time-out procedure was called. The patient received a total of 4 mg of Versed, 75 mcg of Fentanyl, and 15 cc of 1% lidocaine for anesthesia and pain control throughout the procedure. Using Metzenbaum scissors, the sutures in the existing incision were ligated and removed and sent for culture. There was liquid blood in the pocket that freely flowed out. Samples were taken of the fluid after some of it had been removed from the pocket and sent for culture. The antibiotic mesh pouch cover device was explanted and the pocket was copiously irrigated. There was no overt evidence of infection. Deeper cultures of the pocket were taken after irrigation. The pocket, however, was oozing and it was difficult to Bovie cautery the pocket as it was so diffuse. The decision was made to utilize Surgicel in the pocket on the floor and the roof, and the device was placed in the pocket and hemostasis seemed controlled with the Surgicel and the incision was closed using 2 layers of resorbable suture, 2-0 followed by 4-0. No margaret were used. Steri-strips were utilized instead and a pressure dressing was placed following this with fluffs. The patient was hemodynamically stable throughout the procedure and on transfer to the floor. There were no overt complications with concern of the pocket oozing and his blood thinners will continue to be held. FINDINGS: The device was a [employer]use Adapta ADSR01 serial #[id number]. Interrogation following procedure showed no underlying R-waves. The ventricular lead impendence was 528 ohms and the ventricular pacing threshold was 0.5 V at 0.4 msec. He is programmed in single chamber late response mode at a low rate of 60 beats per minute. [id number]/[facility] #: [id number] MTDD
[2017-01-27 06:53] LABS: Hematocrit 37 % (42-52); Mean Corpuscular HGB Conc 33 g/dl (31-36); Mean Corpuscular Hemoglobin 29 pg (27-31); Mean Corpuscular Volume 87 fL (80-94); Mean Platelet Volume 7 um3 (7.4-10.4); Red Blood Count 4.19 10^6/ul (4.0-5.4); Red Cell Distribution Width 14 % (10.5-15); White Blood Count 3.9 10^3/ul (3.5-10.8)
[2017-01-27] MEDS: Lactobacillus Acidophilu (GG)* 1 CAP CAP PO SCH (09:07)
[2017-01-27] MEDS: CMCS Nebivolol TAB (NF) 2.5 MG TAB PO SCH (09:11)
[2017-01-27] MEDS: Lisinopril TAB* 5 MG PO SCH (09:11)
[2017-01-27 09:57] LABS: Erythrocyte Sed Rate 55 mm/Hr (0-14)
--- NOTE | 2017-01-27 11:21 | PN ---
Subjective Date of Service: 01/27/17 - CC: pacer incision Interval History: The patient has only mild tenderness at incision site. Walking w/o difficulty. No fevers or chills. Medications Active Medications: Acetaminophen (Tylenol Tab*) 650 mg PO Q4H PRN PRN Reason: PAIN Cefazolin Sodium 500 mg/ (Sodium Chloride) 50 mls @ 200 mls/hr IVPB Q8H [facility] Last Admin: 01/27/17 04:59 Dose: 200 mls/hr Lactobacillus Rhamnosus (Culturelle*) 1 cap PO DAILY [facility] Last Admin: 01/27/17 09:07 Dose: 1 cap Lisinopril (Prinivil Tab*) 5 mg PO DAILY [facility] Last Admin: 01/27/17 09:11 Dose: 5 mg Nebivolol (Bystolic Tab (Nf)) 2.5 mg PO DAILY [facility] Last Admin: 01/27/17 09:11 Dose: 2.5 mg Objective Vital Signs: Temp Pulse Resp BP Pulse Ox 98.5 F 59 16 102/52 99 01/27/17 07:32 01/27/17 07:32 01/27/17 07:32 01/27/17 07:32 01/27/17 07:32 Oxygen Devices in Use Now: None Appearance: Tall lean male, in no distress lying in bed. Eyes: PERRLA Ears/Nose/Mouth/Throat: Clear Oropharnyx, Mucous Membranes Moist Neck: NL Appearance and Movements; NL JVP Respiratory: Symmetrical Chest Expansion and Respiratory Effort, Clear to Auscultation Cardiovascular: NL Sounds; No Murmurs; No JVD, RRR Abdominal: NL Sounds; No Tenderness; No Distention, No Hepatosplenomegaly Extremities: No Edema Skin: No Rash or Ulcers - incision in the left subclavian fossa does not show recurrance of hematoma, skin color improved c/w yesterday. No overt evidence of infection. No ecchymosis. Neurological: Alert and Oriented x 3 Lines/Tubes/Other Access: Clean, Dry and Intact Peripheral IV Laboratory Results: 01/27/17 06:38 01/26/17 12:30 Laboratory Tests 01/26/17 01/26/17 01/27/17 12:30 12:30 06:38 WBC 3.9 RBC 4.19 Hgb 12.0 L Hct 37 L MCV 87 MCH 29 MCHC 33 RDW 14 Plt Count 247 MPV 7 L Neut % (Auto) 55.1 Lymph % (Auto) 23.8 L [place] % (Auto) 19.9 H Eos % (Auto) 0.8 Baso % (Auto) 0.4 Absolute Neuts (auto) 2.2 Absolute Lymphs (auto) 0.9 L Absolute Monos (auto) 0.8 Absolute Eos (auto) 0 Absolute Basos (auto) 0 Absolute Nucleated RBC 0 Nucleated RBC % 0.1 ESR 63 H 55 H Sodium 133 Potassium 4.6 Chloride 100 L Carbon Dioxide 27 Anion Gap 6 BUN 22 Creatinine 0.94 Est GFR ( Amer) 115.5 Est GFR (Non-Af Amer) 89.8 BUN/Creatinine Ratio 23.4 H Glucose 96 Calcium 9.5 C-Reactive Protein 37.41 H 44.27 H Premliminary cultures: coag neg staph, culture and sesi pending. 3 cultures: one is sutures, one is hematoma from pocket (swab) one is wall of deep pocket after copious irrigation (swab). Assessment/Plan 36 yo with congenital heart block,pacer , chronic afib, CVA nd TPA September 2016 , on Eliqus who underwent pacemaker generator change on full anticoagulation complicated by low grade fevers, chills, pocket hematoma, errythema of pocket, ? infection vs discoloration from hematoma. Intraoperatively no overt evidence of infection and pocket was diffusely oozing (heme). Surgicel and bovi prior to closing. Now POD#1 evacuation of hematoma, cultures and IV keflex. Points of Discussion: Pocket hematoma: Does not appear to be recollecting off anticoagulation. Possible resumption of Eliqis in AM Afib and CVA hx: as above, possible resumption of anticoag in AM. Infection vs. inflammation (and personal hx pocket infection in distant past and family hx sister diet 1 month of age sepsis/DIC). Continue keflex if ok based on ID and sensi once available. Follow up outpatient Dr. Odom, ?immune issue not yet identified.
[2017-01-28] MEDS: ceFAZolin 500 MG VIAL(*) 500 MG in NS 0.9% 50 ML* 50 ML IVPB SCH ×2 (05:04→13:21)
--- NOTE | 2017-01-28 08:22 | PN ---
Subjective Date of Service: 01/28/17 - CC: pocket hematoma (pacer) Interval History: The patient has only mild tenderness at incision site. No new c/o. Medications Active Medications: Acetaminophen (Tylenol Tab*) 650 mg PO Q4H PRN PRN Reason: PAIN Cefazolin Sodium 500 mg/ (Sodium Chloride) 50 mls @ 200 mls/hr IVPB Q8H [facility] Last Admin: 01/28/17 05:04 Dose: 200 mls/hr Lactobacillus Rhamnosus (Culturelle*) 1 cap PO DAILY [facility] Last Admin: 01/27/17 09:07 Dose: 1 cap Lisinopril (Prinivil Tab*) 5 mg PO DAILY [facility] Last Admin: 01/27/17 09:11 Dose: 5 mg Nebivolol (Bystolic Tab (Nf)) 2.5 mg PO DAILY [facility] Last Admin: 01/27/17 09:11 Dose: 2.5 mg Objective Vital Signs: Temp Pulse Resp BP Pulse Ox 98.5 F 61 16 98/49 98 01/27/17 23:09 01/27/17 23:09 01/27/17 23:09 01/27/17 23:09 01/27/17 23:09 Oxygen Devices in Use Now: None Appearance: Tall lean male, in no distress lying in bed, 45 degrees. Eyes: PERRLA Ears/Nose/Mouth/Throat: Clear Oropharnyx, Mucous Membranes Moist Neck: NL Appearance and Movements; NL JVP Respiratory: Symmetrical Chest Expansion and Respiratory Effort, Clear to Auscultation Cardiovascular: NL Sounds; No Murmurs; No JVD, RRR Abdominal: NL Sounds; No Tenderness; No Distention, No Hepatosplenomegaly Extremities: No Edema Skin: No Rash or Ulcers - incision in the left subclavian fossa small recollection of hematoma. No overt evidence of infection. No ecchymosis. Neurological: Alert and Oriented x 3 Lines/Tubes/Other Access: Clean, Dry and Intact Peripheral IV Laboratory Results: 01/26/17 01/26/17 01/27/17 12:30 12:30 06:38 WBC 3.9 RBC 4.19 Hgb 12.0 L Hct 37 L MCV 87 MCH 29 MCHC 33 RDW 14 Plt Count 247 MPV 7 L Neut % (Auto) 55.1 Lymph % (Auto) 23.8 L [place] % (Auto) 19.9 H Eos % (Auto) 0.8 Baso % (Auto) 0.4 Absolute Neuts (auto) 2.2 Absolute Lymphs (auto) 0.9 L Absolute Monos (auto) 0.8 Absolute Eos (auto) 0 Absolute Basos (auto) 0 Absolute Nucleated RBC 0 Nucleated RBC % 0.1 ESR 63 H 55 H Sodium 133 Potassium 4.6 Chloride 100 L Carbon Dioxide 27 Anion Gap 6 BUN 22 Creatinine 0.94 Est GFR ( Amer) 115.5 Est GFR (Non-Af Amer) 89.8 BUN/Creatinine Ratio 23.4 H Glucose 96 Calcium 9.5 C-Reactive Protein 37.41 H 01/27/17 01/28/17 01/28/17 06:38 05:31 05:31 WBC RBC Hgb Hct MCV MCH MCHC RDW Plt Count MPV Neut % (Auto) Lymph % (Auto) [place] % (Auto) Eos % (Auto) Baso % (Auto) Absolute Neuts (auto) Absolute Lymphs (auto) Absolute Monos (auto) Absolute Eos (auto) Absolute Basos (auto) Absolute Nucleated RBC Nucleated RBC % ESR 53 H Sodium Potassium Chloride Carbon Dioxide Anion Gap BUN Creatinine Est GFR ( Amer) Est GFR (Non-Af Amer) BUN/Creatinine Ratio Glucose Calcium C-Reactive Protein 44.27 H 59.82 H Assessment/Plan 36 yo with congenital heart block,pacer , chronic afib, CVA nd TPA September 2016 , on Eliqus who underwent pacemaker generator change on full anticoagulation complicated by low grade fevers, chills, pocket hematoma, erythema of pocket, ? infection vs discoloration from hematoma. Intraoperatively no overt evidence of infection and pocket was diffusely oozing (heme). Surgicel and bovi prior to closing. Now POD#2 evacuation of hematoma, cultures and IV keflex. Points of Discussion: Pocket hematoma: Mild recollection off Eliquis since Tuesday. Possible resumption of Eliqis in AM Tuesday (hx CVA earlier this year) Afib and CVA hx: as above, possible resumption of anticoag in AM. Infection vs. inflammation (and personal hx pocket infection in distant past and family hx sister diet 1 month of age sepsis/DIC). Continue keflex if ok based on ID and sensi once available, still waiting on culture updates today. [place]'s improving, ESR improving but CRP rising. I will see if Dr. Asad Odom (ID) can see today. Possible discharge today on home oral antibiotics.
[2017-01-28] MEDS: Lactobacillus Acidophilu (GG)* 1 CAP CAP PO SCH (09:21)
[2017-01-28] MEDS: CMCS Nebivolol TAB (NF) 2.5 MG TAB PO SCH (09:21)
[2017-01-28] MEDS: Lisinopril TAB* 5 MG PO SCH (09:21)
[2017-01-28 14:16] VITALS: BP 106/56
--- NOTE | 2017-01-28 17:33 | CONS ---
CONSULTATION REPORT: DATE OF CONSULT: 01/28/17 REQUESTING PHYSICIAN: Licha Barraza MD. CONSULTING SERVICE: Infectious Disease. REASON FOR CONSULTATION: Pacemaker pocket hematoma, abnormal C-reactive protein. IMPRESSION: 1. Status post pacemaker generator change on 01/18/17, which was complicated by chest rash and fever. It sounds like the distribution of the rash may have been in the distribution of a bandage that was around the pacemaker pocket. There may have been a local reaction to some topical agent. He did also have fever, which I think will be less likely from a topical agent. He was on Keflex at that time and the fever seemed to persist while he was on Keflex and then resolved. He could have a Keflex allergy. 2. Pacemaker pocket hematoma, which was evacuated on 01/26/[address] Barraza. There was no purulence seen at that time and there was really no erythema overlying the pocket beforehand. She did take samples, which included Gram stain x2 without any organisms and the culture was negative x3 samples. He has had no fever here. He did have C-reactive protein followed, starting from when he had the generator change when it was 76. It was 37 on 01/26/17, 44 yesterday, 60 today. I suspect the change in C-reactive protein is postoperative in nature as he has no other systemic signs or symptoms. 3. Congenital neurologic syndrome. 4. Congenital heart block, status post pacemaker and recent generator change. 5. Atrial fibrillation. 6. Hypertension. 7. Pes excavatus. 8. Ataxia. RECOMMENDATIONS: We will change him to clindamycin 300 mg by mouth 3 times a day for the next 7 days to prevent infection in the setting of recent multiple procedures associated with his left chest pacemaker pocket. His parents will call if he has any fever, chills, sweats, rash, or worsening redness at the pacemaker site. I will follow up with him in the office next week. HISTORY OF PRESENT ILLNESS: This is a 36-year-old man with congenital heart block and a pacemaker. He had a pacemaker generator change 2 weeks ago from his left chest pacemaker pocket. Everything seemed fine, then he did develop round red rash over the area of the pocket plus an extra 4 to [address] around it. It resolved after a day or so. He did have fever to 101 in the 99s and 100s over the next 4 to 5 days while he was on Keflex. He stopped the Keflex. His fever went away. Then he noted swelling and bruising of the pacemaker pocket site. He was seen by Dr. Wells who recommended admission to the hospital. He was seen by Dr. Barraza who drained a hematoma at that location on 01/26/17. She took samples of the hematoma and the cultures have all been negative. He has had no fever, chills, or sweats. He has no particular complaints. He had been on oral anticoagulant at the time the hematoma developed. PAST MEDICAL HISTORY: 1. Congenital neurologic syndrome. 2. Congenital heart block, status post pacemaker. 3. History of pacemaker infection. 4. Atrial fibrillation. MEDICATIONS: 1. Tylenol. 2. Cefazolin. 3. Lactobacillus. 4. Lisinopril. 5. Nebivolol. ALLERGIES: No clear allergies. He had fever while taking KEFLEX. FAMILY HISTORY: No recurrent infection. He did have 2 daughters who in infancy of infectious complications. SOCIAL HISTORY: He lives with his parents. He has no travel or sick contacts. REVIEW OF SYSTEMS: A full review of systems was negative except as noted above. PHYSICAL EXAM: Vital Signs: Temperature 37, heart rate 60, respiratory rate 16 , blood pressure 106/56, O2 sat 100% on room air. General: He is awake, not in distress. Neurologic: He is oriented x3. Follows all commands. Answers all questions. HEENT: There is no conjunctival hemorrhage. Oropharynx without lesions. Neck: Supple without nuchal rigidity. Lymph Nodes: There is no cervical, supraclavicular, inguinal, axillary, or epitrochlear lymphadenopathy. Heart: Regular. No murmurs, rubs, or gallops. Lungs: Clear to auscultation bilaterally. Chest: There is a well-healed median chest scar. His left chest pacemaker pocket is intact. There is no erythema or warmth. There is mild swelling. Abdomen: Soft, nontender, nondistended without hepatosplenomegaly. Skin: There is no rash or splinter hemorrhages. Musculoskeletal: No spinal tenderness to palpation or joint synovitis. DIAGNOSTIC STUDIES/LAB DATA: White blood cell count 3.9, hemoglobin 12, platelets 247, MCV 87. Creatinine 0.9. CRP 59. Blood cultures negative. Please see impression and recommendations outlined above, which I have discussed with Dr. Barraza. Thank your for asking me to see Caleb Jaylen in consultation. [id number]/[facility] #: [id number] [place]
== END 2017-01-28 15:20 | disposition home or self-care (01) ==
LOC: CHICATH 11:35 → INTOOBSV 16:30 → MED 16:30
PROVIDERS: ADMIT Specialist; ATTEND Specialist
DX: I97.638 Postprocedural hematoma of a circulatory system organ or structure following other circulatory system procedure (principal); Y83.8 Other surgical procedures as the cause of abnormal reaction of the patient, or of later complication, without mention of misadventure at the time of the procedure; Z95.0 Presence of cardiac pacemaker; Q24.6 Congenital heart block; I48.91 Unspecified atrial fibrillation; Z79.01 Long term (current) use of anticoagulants; I10 Essential (primary) hypertension; Q66.7 Congenital pes cavus; R27.0 Ataxia, unspecified; I42.9 Cardiomyopathy, unspecified; E78.00 Pure hypercholesterolemia, unspecified; I66.9 Occlusion and stenosis of unspecified cerebral artery; N18.1 Chronic kidney disease, stage 1
CPT/HCPCS: 21501; 36415; 80048; 85025; 85652; 86140; 87040; 87070; 87205; 87640; 87641; A9270-GY; G0378; J0690; J2001; J2250; J2310; J3010

== ENCOUNTER 2018-08-12 17:29 | Emergency (ER) | payer MEDICARE, MEDICAID ==
--- OUTSIDE RECORDS SUMMARY | 2018-08-12 17:35 | XMS REPORT | Continuity of Care Document ---
:1980 External Reference #:[id number] Author Name Dania Lobo PA-C Address [address] [place] [address] Care Team Providers Name Role Phone Gaetano Huber M.D. Care Team Information Digital Circuit Designer Unavailable aGetano Huber M.D. Primary Care Physician Unavailable Payers Type Date Identification Numbers Payment Provider Subscriber Policy Number: [id number] Medicare-[facility]ly [facility], 1928–1983 Govn [employer] [place] PayID: [id number] [address] [place] [address] Policy Number: [id number] Medicaid/C Alden Dougherty Jaylen Group Name: 2 1 Medicare Primary PayID: [id number] [address] [place] [address] Advance Directives Description No Information Available Problems Date Description Provider Status Onset: 07/25/2018 Infective otitis externa Dania Lobo PA-C Active Onset: 12/19/2012 Impacted cerumen Moris Dee M.D. Active Onset: 12/19/2012 Acute otitis externa Moris Dee M.D. Active Family History Date Family Member(s) Problem(s) Comments General Cancer General Diabetes General Heart Disease Social History Type Date Description Comments Sex Unknown Occupation Disabled Tobacco Use Start: Unknown Never Smoked Cigarettes Tobacco Use Start: Unknown Never Smoked Cigars Tobacco Use Start: Unknown Never Smoked A Pipe Smokeless Tobacco Never Used Smokeless Tobacco ETOH Use Currently rarely consumes alcohol Tobacco Use Start: Unknown Patient has never smoked Smoking Status Reviewed: 07/25/18 Patient has never smoked Allergies, Adverse Reactions, Alerts Description No Known Drug Allergies Medications Medication Date Status Form Strength Qnty SIG Indications Ordering Provider Mometasone Active Cream 0.1% 15gm apply to Zechariah Bill affected MD Marisol area as needed for itchy, dry skin up to 2 times a day. Ofloxacin Active Solution 0.3% 10ml instill 3-4 Zechariah Edwards (Otic) Fly drops to MD Marisol the right ear 2 times a day for 10 days. Lisinopril Active 5mg 1 po daily Gaetano Huber M.D. Eliquis Active LyndGaetano medina M.D. Probiotic Active Capsules 1 by mouth Unknown 000 every day Amoxicillin/C Active Tablets 875-125mg take 1 Unknown lavulanate 000 tablet by Potassium mouth twice a day Bystolic Active Tablets 2.5mg Gaetano Huber M.D. Vitamin B12 Active Tablets 1 by mouth Unknown 000 every day D3 High Active Capsules Unknown Potency 000 Mometasone Hx Solution 0.1% 60ml mix 50:50 H60.553 Moris Chitra Brown 013 - with olive Strominger, oil and M.DCaleb 017 instill 5 drops in each ear bid prn itching. Bystolic Hx 2.5mg 1 po daily Gaetano Huber M.D. 017 Aspirin Ec Hx 325mg 1 po daily LyndGaetano medina M.D. 017 Fish Oil Hx 1000mg 1 po daily Self Burp-Less 017 Immunizations Description No Information Available Vital Signs Date Vital Result Comment 07/25/2018 2:14pm Weight 171.00 lb Weight 77.566 kg Height 71.50 inches 5'11.50" Height in cm's 181.6 cm BMI (Body Mass Index) 23.5 kg/m2 11/17/2016 10:32am BP Systolic 100 mmHg BP Diastolic 64 mmHg Heart Rate 88 /min Respiratory Rate 17 /min Weight 167.00 lb Weight 75.751 kg Height 71.50 inches 5'11.50" Height in cm's 181.6 cm BMI (Body Mass Index) 23.0 kg/m2 12/19/2012 9:02am BP Systolic 111 mmHg BP Diastolic 74 mmHg Heart Rate 95 /min Respiratory Rate 17 /min Weight 174.00 lb Weight 78.926 kg Height 71.50 inches 5'11.50" Height in cm's 181.6 cm BMI (Body Mass Index) 23.9 kg/m2 Results Description No Information Available Procedures Date Code Description Status 07/25/2018 22931 Removal Wax Impaction Completed 11/17/2016 74821 Removal Wax Impaction Completed 12/19/2012 24261 Binocular Microscopy Completed Encounters Type Date Location Provider Dx Diagnosis Office Visit 07/25/2018 [facility] Dania Lobo, H61.23 Impacted cerumen , 2:15p 08/15/07 PAT[facility] bilateral H60.392 Other infective otitis externa, left ear Office Visit 12/19/2012 [facility] Moris Buenrostro 380.22 Eczema Of 9:00a 08/15/07 [facility] External Ear 380.4 Impacted Cerumen / Wax Plan of Treatment Future Appointment(s):01/23/2019 1:30 pm - Dania Lobo PA-C at [facility] - ANA Crump[facility]61.23 Impacted cerumen, [id number] Other infective otitis externa, left ear
--- OUTSIDE RECORDS SUMMARY | 2018-08-12 17:36 | XMS REPORT | Continuity of Care Document ---
:1980 External Reference #:[id number] Author Name Shyanne Breen Care Team Providers Name Role Phone Mauro Huber MD Primary Care Physician Unavailable Payers Type Date Identification Numbers Payment Provider Subscriber Effective: Policy Number: [id number] Medicare Alden Mahoney 2014 PayID: [id number] [address] [place] [address] Effective: 2014 Policy Number: [id number] Medicaid Alden Mahoney Group Name: 1 1 [address] PayID: [id number] [place] [address] Effective: 2010 Policy Number: [employer] Medicaid Alden Mahoney [id number] Expires: 2014 PayID: [id number] [address] [address] [place] [address] Advance Directives Description No Information Available Problems Date Description Provider Status Onset: 09/29/2012 Primary cardiomyopathy Mauro Huber M.D.,FACP Active Note: EF 30-35% Onset: 05/29/2015 Chronic atrial fibrillation Boni Wells M.D. 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 Active Onset: 09/20/2014 Cardiac pacemaker in situ Joellen Mckoy M.D.,FACP Onset: 09/20/2014 Pure hypercholesterolemia Joellen Mckoy M.D.,FACP Onset: 09/20/2014 Microalbuminuria Joellen Mckoy M.D.,FACP Onset: 11/10/2016 Cerebral artery occlusion Federico Rivera MD Active Onset: 11/10/2016 Coordination problem Federico Rivera MD Active Onset: 10/20/2011 Proteinuria Mauro Huber, Inactive Rosa,NATEP Inactive: 09/20/2014 Onset: 12/22/2010 Atrial fibrillation Mauro Huber M.D.,FACP Inactive Inactive: 09/23/2015 Family History Date Family Member(s) Problem(s) Comments Onset: (age 48 Father [place] Years) Father Kidney Stones Mother Alive And Well Siblings 3 1 alive : (age 1 First Sister due to congenital Year 4 Months) deformities : (age 1 Second Sister due to Septicemia and DIC 16 days old Month) Third Sister Cardiomyopathy during Paternal Grandfather due to Heart () - h/o Disease a-fib Social History Type Date Description Comments Sex Unknown Marital Status Single Lives With Mother And Father Occupation Disabled Tobacco Use Start: Unknown Never Smoked Cigarettes Smoking Status Reviewed: 07/19/18 Never Smoked Cigarettes ETOH Use 01/07/2017 Rarely consumes alcohol Tobacco Use Start: Unknown Patient has never smoked Recreational Drug Use Denies Drug Use Exercise Type/Frequency Does not exercise Allergies, Adverse Reactions, Alerts Description No Known Drug Allergies Medications Medication Date Status Form Strength Qnty SIG Indications Ordering Provider Amoxicillin/Cla 07/19 Hx Tablets 875-125mg 14tab by mouth Mauro s twice a day Cindy Conte M.D.,AKI 07/26 Eliquis 06/06 Active Tablets 5mg 1 by mouth I63.412 Mauro twice a day Luiz Huber M.D.,AKI Vitamin B 12 07/14 Active Lozenges 250mcg 100un by mouth its every day Luiz Huber M.D.,FACP Lisinopril 09/27 Active Tablets 5mg 90tab 1 by mouth s every day Luiz Huber M.D.,FACP Bystolic Active Tablets 2.5mg 90tab 1 tab by Mauro / s mouth every D. Mayo, day M.D.,[facility] Probiotic Active Capsules 14cap 1 po qd Unknown /0000 s Vitamin D High Active Capsules 1000Unit 1 by mouth Unknown Potency /0000 every day Eliquis 06/27 Hx Tablets 2.5mg 60tab 1 tablet by I63.412 s mouth twice Cheng. Mayo, - a day M.D.,[facility] 06/06 Clindamycin HCL 01/28 Hx Capsules 300mg 21cap 1 capsule Licha s three times [place], - daily for 7 M.D. 02/01 Cephalexin 01/28 Hx Capsules 500mg 20cap 1 by mouth Other s four times a Ordering - day for 5 Provider Cephalexin 01/17 Hx Capsules 500mg 9caps three times Boni /2016 a day for 3 D. Brand, - days M.D. 01/24 Aspirin Ec 09/[address] 325mg 60tab 1 tab daily, Other s discontinue Ordering - when you Provider 09/27 start Eliquis in 2-3 days Eliquis 09/27 Hx Tablets 5mg 60tab 1 by mouth I63.412 s twice a day Luiz Huber, - Prakash.Luiz,[facility] 06/27 Lisinopril 09/27 Hx Tablets 2.5mg 30tab 1 by mouth s every day Luiz Huber, - (pt is Rosa,[facility] 09/27 currently taking 5mg) Atorvastatin 09/27 Hx Tablets 40mg 30tab 1 by mouth Other Calcium s every day Ordering - Provider 10/01 Doxycycline 01/25 Hx Capsules 100mg 12cap one tablet Other Hyclate /2015 s twice daily Ordering - for 6 days. Provider 01/31 Fluticasone 01/17 Hx Suspension 50mcg/Act 1bott 1 spray each 473.1 Gaetano Grayson le nostril in Luiz Huber, - in the M.DCaleb,[facility] 11/27 morning x3 wks then as needed Zyrtec Allergy 01/17 Hx Capsules 10mg 30cap as needed J32.1 s Whitney Conte M.D.,[facility] 11/27 Azithromycin 12/11 Hx Tablets 250mg 6tabs 2 tabs by 465.8 Federico mouth on day Mi, [employer] - one followed 01/17 by 1 tab /2014 daily for the last 4 days Selenium 09/20 Hx Lotion 2.5% 1Bott topical 690.18 Mauro le 2x/week for Luiz Huber, - 2 wks, then M.[facility]aleb,[facility] 05/16 weekly needed Triamcinolone 12/06 Hx Cream 0.1% 30G apply bid 692.89 Mauro Cream /2012 prn Whitney Conte M.D.,[facility] 12/06 Triamcinolone 12/06 Hx Cream 0.1% 30uni apply qd prn 692.89 Mauro Acetonide /2012 ts Whitney Conte M.D.,[facility] 09/20 Amoxicillin 05/30 Hx Tablets 500mg 28tab 2 tabs po 380.4 Mauro s bid for 7 DCaleb Huber, - days M.DCaleb,[facility] 09/29 Triamcinolone 12/22 Hx Cream 0.1% 30G apply bid 692.89 Mauro prn Whitney Conte M.D.,[facility] 10/19 Enteric Co[address] Hx Tablets DR 325mg 1 po qd Unknown Aspirin / - 09/[address] 1000mg 1 po qd Unknown /0000 - 09/15 Multi Vitamin Hx Tablets 1 po qd Unknown /0000 - 10/19 Lisinopril Hx Tablets 10mg 45tab take 1/2 s tablet by Luiz Huber, - mouth once M.DCaleb,[facility] 09/27 Immunizations CPT Code Status Date Vaccine Lot # [id number] Given 05/30/2012 Fluzone Vaccine [id number] Given 01/27/2012 Tdap - Tetanus/Diptheria/Acellular Pertussis [id number] Given 05/24/2011 Influenza Virus 3Yrs & Over Vital Signs Date Vital Result Comment 07/19/2018 11:45am Height 71 inches 5'11" Weight 167.00 lb Heart Rate 88 /min BP Systolic Sitting 100 mmHg BP Diastolic Sitting 60 mmHg Body Temperature 100.3 F O2 % BldC Oximetry 95 % BMI (Body Mass Index) 23.3 kg/m2 07/17/2018 4:08pm Height 71 inches 5'11" Weight 167.00 lb Heart Rate 92 /min BP Systolic 92 mmHg BP Diastolic 53 mmHg Body Temperature 101.9 F O2 % BldC Oximetry 97 % BMI (Body Mass Index) 23.3 kg/m2 12/23/2017 12:56pm Height 71 inches 5'11" Weight 161.00 lb Heart Rate 76 /min BP Systolic Sitting 118 mmHg BP Diastolic Sitting 66 mmHg Body Temperature 97.4 F O2 % BldC Oximetry 98 % BMI (Body Mass Index) 22.5 kg/m2 11/04/2017 11:10am Height 71 inches 5'11" Weight 166.00 lb Heart Rate 60 /min BP Systolic Sitting 99 mmHg BP Diastolic Sitting 60 mmHg BP Systolic Standing 95 mmHg BP Diastolic Standing 60 mmHg Respiratory Rate 16 /min BMI (Body Mass Index) 23.1 kg/m2 Ejection Fraction 40-45% 11/24/2016 06/13/2017 10:23am Weight 163.00 lb Heart Rate 90 /min BP Systolic Sitting 116 mmHg BP Diastolic Sitting 66 mmHg Body Temperature 96.1 F O2 % BldC Oximetry 99 % 04/29/2017 3:20pm Height 71 inches 5'11" Weight 162.00 lb with sandals Heart Rate 66 /min BP Systolic Sitting 80 mmHg BP Diastolic Sitting 58 mmHg BP Systolic Standing 82 mmHg BP Diastolic Standing 60 mmHg BMI (Body Mass Index) 22.6 kg/m2 Ejection Fraction 40-45% 11/24/2016-echo 2017 2:29pm Weight 166.00 lb Heart Rate 68 /min BP Systolic Sitting 120 mmHg Rue reg cuff BP Diastolic Sitting 70 mmHg Rue reg cuff BP Systolic Standing 110 mmHg Rue reg cuff BP Diastolic Standing 65 mmHg Rue reg cuff Respiratory Rate 16 /min 02/11/2017 9:26am Weight 165.12 lb Heart Rate 90 /min BP Systolic Sitting 122 mmHg BP Diastolic Sitting 60 mmHg Body Temperature 97.2 F O2 % BldC Oximetry 97 % 02/04/2017 11:57am Height 71 inches 5'11" Weight 165.00 lb with sandals Heart Rate 90 /min BP Systolic Sitting 98 mmHg Rue reg cuff BP Diastolic Sitting 66 mmHg Rue reg cuff BP Systolic Standing 108 mmHg Rue reg cuff BP Diastolic Standing 68 mmHg Rue reg cuff Respiratory Rate 17 /min BMI (Body Mass Index) 23.0 kg/m2 Ejection Fraction 40-45% date 11/24/16 ECHO 02/01/2017 12:58pm Height 71 inches 5'11" Weight 166.00 lb w/ shoes Heart Rate 66 /min reg BP Systolic Sitting 110 mmHg Lue, reg cuff BP Diastolic Sitting 60 mmHg Lue, reg cuff Respiratory Rate 16 /min Body Temperature 97.8 F oral BMI (Body Mass Index) 23.1 kg/m2 Ejection Fraction 40-45% as of 11/2016 echo 02/01/2017 11:31am Height 71 inches 5'11" Weight 166.25 lb Heart Rate 82 /min BP Systolic Sitting 104 mmHg BP Diastolic Sitting 66 mmHg Respiratory Rate 14 /min Body Temperature 97.8 F BMI (Body Mass Index) 23.2 kg/m2 01/26/2017 9:33am Height 71 inches 5'11" Weight 167.00 lb Heart Rate 76 /min BP Systolic Sitting 108 mmHg Lue reg cuff BP Diastolic Sitting 70 mmHg Lue reg cuff BP Systolic Standing 106 mmHg Lue reg cuff BP Diastolic Standing 70 mmHg Lue reg cuff Respiratory Rate 16 /min BMI (Body Mass Index) 23.3 kg/m2 Ejection Fraction 40-45% 11/24/2016-echo 01/25/2017 12:53pm Height 71 inches 5'11" Weight 165.00 lb w/ shoes Heart Rate 74 /min reg BP Systolic Sitting 100 mmHg Rue, reg cufff BP Diastolic Sitting 60 mmHg Rue, reg cufff BP Systolic Standing 96 mmHg Rue BP Diastolic Standing 60 mmHg Rue Respiratory Rate 16 /min Body Temperature 98.1 F oral BMI (Body Mass Index) 23.0 kg/m2 Ejection Fraction 40-45% as of 11/24/16 echo 01/20/2017 11:33am Height 71 inches 5'11" Weight 170.00 lb Heart Rate 68 /min BP Systolic Sitting 110 mmHg reg; right arm BP Diastolic Sitting 88 mmHg reg; right arm BP Systolic Standing 100 mmHg reg; right arm BP Diastolic Standing 70 mmHg reg; right arm Body Temperature 98.6 F oral BMI (Body Mass Index) 23.7 kg/m2 01/20/2017 11:29am Ejection Fraction 40-45% 11/24/16 01/18/2017 12:50pm Height 72 inches 6'0" Weight 169.00 lb w/ shoes Heart Rate 62 /min reg BP Systolic Sitting 90 mmHg Rue, reg cuff BP Diastolic Sitting 66 mmHg Rue, reg cuff Respiratory Rate 16 /min Body Temperature 98.4 F oral BMI (Body Mass Index) 22.9 kg/m2 Ejection Fraction 40-45% as of 11/24/16 echo 01/07/2017 11:02am Height 72 inches 6'0" Weight 169.00 lb Heart Rate 65 /min BP Systolic 98 mmHg BP Diastolic 64 mmHg Body Temperature 97.7 F O2 % BldC Oximetry 99 % BMI (Body Mass Index) 22.9 kg/m2 12/10/2016 2:33pm Height 70.5 inches 5'10.50" Weight 169.00 lb with sandals Heart Rate 64 /min BP Systolic Sitting 110 mmHg Rue reg cuff BP Diastolic Sitting 74 mmHg Rue reg cuff BP Systolic Standing 110 mmHg Rue reg cuff BP Diastolic Standing 80 mmHg Rue reg cuff Respiratory Rate 16 /min BMI (Body Mass Index) 23.9 kg/m2 Ejection Fraction 40-45% date 11/24/2016 ECHO 12/08/2016 9:27am Height 70.5 inches 5'10.50" Weight 171.00 lb Heart Rate 70 /min BP Systolic Sitting 95 mmHg BP Diastolic Sitting 64 mmHg Body Temperature 97.7 F O2 % BldC Oximetry 97 % BMI (Body Mass Index) 24.2 kg/m2 11/10/2016 11:07am Height 70.5 inches 5'10.50" Weight 167.00 lb Heart Rate 80 /min BP Systolic Sitting 120 mmHg BP Diastolic Sitting 80 mmHg BMI (Body Mass Index) 23.6 kg/m2 11/01/2016 10:29am Height 70.5 inches 5'10.50" Weight 173.00 lb Heart Rate 104 /min BP Systolic Sitting 100 mmHg BP Diastolic Sitting 70 mmHg Body Temperature 97.9 F O2 % BldC Oximetry 99 % BMI (Body Mass Index) 24.5 kg/m2 10/13/2016 10:40am Height 70.5 inches 5'10.50" Weight 176.00 lb Heart Rate 70 /min BP Systolic Sitting 110 mmHg left arm, reg cuff BP Diastolic Sitting 78 mmHg left arm, reg cuff BP Systolic Standing 98 mmHg left arm, reg cuff BP Diastolic Standing 76 mmHg left arm, reg cuff Respiratory Rate 20 /min BMI (Body Mass Index) 24.9 kg/m2 Ejection Fraction 30-35% 09/24/16 09/27/2016 3:15pm Weight 177.00 lb Heart Rate 86 /min BP Systolic Sitting 114 mmHg BP Diastolic Sitting 74 mmHg Body Temperature 98.5 F O2 % BldC Oximetry 98 % 05/21/2016 10:10am Height 70.5 inches 5'10.50" Weight 182.00 lb with shoes Heart Rate 80 /min BP Systolic Sitting 116 mmHg Ra reg cuff BP Diastolic Sitting 84 mmHg Ra reg cuff BP Systolic Standing 114 mmHg Ra reg cuff BP Diastolic Standing 80 mmHg Ra reg cuff Respiratory Rate 15 /min BMI (Body Mass Index) 25.7 kg/m2 Ejection Fraction 45-50% 11/14/2014 01/28/2016 8:51am Height 70.5 inches 5'10.50" Weight 180.00 lb Heart Rate 94 /min BP Systolic Sitting 102 mmHg BP Diastolic Sitting 74 mmHg Body Temperature 98.2 F O2 % BldC Oximetry 98 % BMI (Body Mass Index) 25.5 kg/m2 11/28/2015 3:11pm Height 70.5 inches 5'10.50" Weight 182.00 lb Heart Rate 86 /min BP Systolic Sitting 105 mmHg BP Diastolic Sitting 64 mmHg Body Temperature 97.6 F O2 % BldC Oximetry 98 % BMI (Body Mass Index) 25.7 kg/m2 05/29/2015 9:49am Height 71 inches 5'11" Weight 180.00 lb with shoes Heart Rate 74 /min BP Systolic Sitting 126 mmHg LA, reg cuff BP Diastolic Sitting 82 mmHg LA, reg cuff BP Systolic Standing 120 mmHg LA BP Diastolic Standing 78 mmHg LA Respiratory Rate 16 /min BMI (Body Mass Index) 25.1 kg/m2 Ejection Fraction 45-50% 11/14/2014 01/17/2015 2:54pm Weight 172.00 lb Heart Rate 93 /min BP Systolic Sitting 104 mmHg BP Diastolic Sitting 64 mmHg Body Temperature 98.8 F O2 % BldC Oximetry 94 % 12/11/2014 9:06am Height 71 inches 5'11" Weight 170.12 lb Heart Rate 93 /min BP Systolic Sitting 112 mmHg BP Diastolic Sitting 62 mmHg Body Temperature 98.6 F O2 % BldC Oximetry 96 % BMI (Body Mass Index) 23.7 kg/m2 09/20/2014 2:23pm Height 71 inches 5'11" Weight 167.00 lb Heart Rate 64 /min BP Systolic Sitting 122 mmHg BP Diastolic Sitting 80 mmHg Body Temperature 97.7 F O2 % BldC Oximetry 95 % BMI (Body Mass Index) 23.3 kg/m2 05/16/2014 12:41pm Height 71 inches 5'11" Weight 165.00 lb without shoes Heart Rate 60 /min BP Systolic Sitting 104 mmHg BP Diastolic Sitting 60 mmHg BP Systolic Standing 108 mmHg BP Diastolic Standing 60 mmHg Respiratory Rate 18 /min BMI (Body Mass Index) 23.0 kg/m2 09/20/2013 11:48am Weight 165.00 lb Heart Rate 60 /min BP Systolic Sitting 102 mmHg BP Diastolic Sitting 70 mmHg 05/03/2013 1:00pm Height 71.25 inches 5'11.25" Weight 164.00 lb Heart Rate 66 /min Regular BP Systolic Sitting 110 mmHg Right Arm, Reg Cuff BP Diastolic Sitting 60 mmHg Right Arm, Reg Cuff BP Systolic Standing 102 mmHg Right Arm BP Diastolic Standing 68 mmHg Right Arm Respiratory Rate 17 /min BMI (Body Mass Index) 22.7 kg/m2 10/18/2012 11:44am Height 71 inches 5'11" Weight 174.75 lb Heart Rate 72 /min BP Systolic Sitting 106 mmHg BP Diastolic Sitting 62 mmHg BMI (Body Mass Index) 24.4 kg/m2 05/30/2012 8:55am Height 71 inches 5'11" Weight 171.00 lb Heart Rate 88 /min BP Systolic Sitting 84 mmHg BP Diastolic Sitting 58 mmHg Body Temperature 98.4 F BMI (Body Mass Index) 23.8 kg/m2 01/27/2012 2:16pm Height 71 inches 5'11" Weight 174.00 lb Heart Rate 88 /min BP Systolic Sitting 98 mmHg BP Diastolic Sitting 60 mmHg Respiratory Rate 16 /min Body Temperature 98.1 F lt ear BMI (Body Mass Index) 24.3 kg/m2 10/20/2011 10:32am Height 71.25 inches 5'11.25" Weight 172.00 lb Heart Rate 50 /min BP Systolic Sitting 104 mmHg BP Diastolic Sitting 64 mmHg BMI (Body Mass Index) 23.8 kg/m2 12/22/2010 2:25pm Height 71 inches 5'11" Weight 176.00 lb Heart Rate 86 /min BP Systolic Sitting 100 mmHg BP Diastolic Sitting 76 mmHg BMI (Body Mass Index) 24.5 kg/m2 Results Test Date Facility Test Result H/L Range Note Laboratory test 07/17/2018 [facility] Lyme Disease Negative Negative [address] [address] [phone] Tick-Borne Panel 07/17/2018 [facility] Babesia Negative Negative PCR Blood [address] [place] [address] [phone] Babesia ducani Negative Negative Babesia divergens/Mo-1 Negative Negative 2 Anaplasma phagocytophilum Negative Negative Ehrlichia chaffeensis Negative Negative Ehrlichia ewingii/canis Negative Negative Ehrlichia muris-like Negative Negative 3 B. miyamotoi PCR, B Negative Negative 4 Laboratory test 07/17/2018 [facility] Erythrocyte Sed 23 mm/Hr High 0-[address] [place] [address] [phone] C Reactive Protein 31.94 mg/L High <8.01 Blood Culture SEE RESULT BELOW 5 Inr/Protime 06/16/2018 [facility] Inr 1.29 High 0.77-1.[address] [place] [address] [phone] Laboratory test 06/16/2018 [facility] Partial 39.2 High 26.0- 36.[address] [place] [address] Time PTT [phone] Inr/Protime 05/12/2018 [facility] Inr 1.18 High 0.77-1.[address] [place] [address] [phone] Laboratory test 05/12/2018 [facility] Partial 38.4 High 26.0- 36.[address] [address] Time PTT [phone] Laboratory test 12/28/2017 [facility] Vitamin B12 605 pg/mL N 180-[address] [place] [address] [phone] Comp Metabolic 12/28/2017 [facility] Sodium 138 mmol/L Low 139 -[address] [place] [address] [phone] Potassium 4.9 mmol/L N 3.5-5.0 Chloride 102 mmol/L N 101-111 Co2 Carbon Dioxide 29 mmol/L N 22-32 Anion Gap 7 mmol/L N 2-11 Glucose 98 mg/dL N 70-100 Blood Urea Nitrogen 19 mg/dL N 6-24 Creatinine 0.98 mg/dL N 0.67-1.17 BUN/Creatinine Ratio 19.4 N 8-20 Calcium 9.7 mg/dL N 8.6-10.3 Total Protein 7.5 g/dL N 6.4-8.9 Albumin 4.5 g/dL N 3.2-5.2 Globulin 3.0 g/dL N 2-4 Albumin/Globulin Ratio 1.5 N 1-3 Total Bilirubin 0.80 mg/dL N 0.2-1.0 Alkaline Phosphatase 71 U/L N 34-104 Alt 12 U/L N 7-52 Ast 16 U/L N 13-39 Egfr Non- 85.1 >60 Egfr 109.5 >60 7 Lipid Profile 12/28/2017 [facility] Triglycerides 58 mg/dL 8 (Trig/Chol/HDL) [address] [place] [address] [phone] Cholesterol 201 mg/dL 9 HDL Cholesterol 37.0 mg/dL 10 LDL Cholesterol 152 mg/dL 11 Laboratory test 07/11/2017 [facility] TSH (Thyroid 3.00 mcIU/mL N 0.34-5.[address] Stim [place]orm) [place] [address] [phone] Free T4 (Free Thyroxine) 0.69 ng/dL N 0.61-1.12 T3 Total 1.05 ng/mL N 0.87-1.78 Vitamin B12 292 pg/mL N 180-914 12 Coagulation Factor X 119 % 70 - 150 13 CBC Auto 03/02/2017 [facility] White Blood 2.6 10^3/uL Low 3.5 -10.[address] [place] [address] [phone] Red Blood Count 4.29 10^6/uL N 4.0-5.4 Hemoglobin 12.6 g/dL Low 14.0-18.0 Hematocrit 38 % Low 42-52 Mean Corpuscular Volume 89 fL N 80-94 Mean Corpuscular Hemoglobin 29 pg N 27-31 Mean Corpuscular HGB Conc 33 g/dL N 31-36 Red Cell Distribution Width 14 % N 10.5-15 Platelet Count 232 10^3/uL N 150-450 Mean Platelet Volume 7 um3 Low 7.4-10.4 Abs Neutrophils 1.2 10^3/uL Low 1.5-7.7 Abs Lymphocytes 1.0 10^3/uL N 1.0-4.8 Abs Monocytes 0.5 10^3/uL N 0-0.8 Abs Eosinophils 0 10^3/uL N 0-0.6 Abs Basophils 0 10^3/uL N 0-0.2 Abs Nucleated RBC 0 10^3/uL N Granulocyte % 43.8 % N 38-83 Lymphocyte % 37.5 % N 25-47 Monocyte % 17.1 % High 1-9 Eosinophil % 0.8 % N 0-6 Basophil % 0.8 % N 0-2 Nucleated Red Blood Cells % 0 N Laboratory test 03/02/2017 [facility] Vitamin B12 342 pg/mL N 180-914 14 finding [address] [place] [address] [phone] Ferritin 66.4 ng/mL N 24-336 Factor X Activity 99 % N 70 - 150 15 Heparin Anti Factor Xa 1.29 IU/mL N 16 Immunoglobulins 02/01/2017 [facility] Immunoglobulin G 1290 N 767 - 17 Serum Quant 101 [facility] mg/dL [address] [place] [address] [phone] Immunoglobulin M 31 mg/dL Abnormal 37 - 286 Immunoglobulin A 401 mg/dL Abnormal 61 - 356 Laboratory test 02/01/2017 [facility] C Reactive 28.14 mg/L High < 5.00 18 finding [address] [facility] [place] [address] [phone] Basic Metabolic 01/26/2017 [facility] Sodium 133 mmol/L N 133- [address] [place] [address] [phone] Potassium 4.6 mmol/L N 3.5-5.0 Chloride 100 mmol/L Low 101-111 Co2 Carbon Dioxide 27 mmol/L N 22-32 Anion Gap 6 mmol/L N 2-11 Glucose 96 mg/dL N 70-100 Blood Urea Nitrogen 22 mg/dL N 6-24 Creatinine 0.94 mg/dL N 0.67-1.17 BUN/Creatinine Ratio 23.4 High 8-20 Calcium 9.5 mg/dL N 8.6-10.3 Egfr Non- 89.8 N >60 Egfr 115.5 N >60 19 Laboratory test 01/26/2017 [facility] C Reactive 37.41 mg/L High < 5.00 [address] [place] [address] [phone] Erythrocyte Sed Rate 63 mm/Hr High 0-14 Blood Culture SEE RESULT BELOW 21 CBC Auto Diff 01/25/2017 [facility] White Blood 3.9 10^3/uL N 3.5-10.[address] [place] [address] [phone] Red Blood Count 4.48 10^6/uL N 4.0-5.4 Hemoglobin 12.9 g/dL Low 14.0-18.0 Hematocrit 39 % Low 42-52 Mean Corpuscular Volume 87 fL N 80-94 Mean Corpuscular Hemoglobin 29 pg N 27-31 Mean Corpuscular HGB Conc 33 g/dL N 31-36 Red Cell Distribution Width 14 % N 10.5-15 Platelet Count 282 10^3/uL N 150-450 Mean Platelet Volume 7 um3 Low 7.4-10.4 Abs Neutrophils 1.8 10^3/uL N 1.5-7.7 Abs Lymphocytes 1.1 10^3/uL N 1.0-4.8 Abs Monocytes 0.9 10^3/uL High 0-0.8 Abs Eosinophils 0.1 10^3/uL N 0-0.6 Abs Basophils 0 10^3/uL N 0-0.2 Abs Nucleated RBC 0 10^3/uL N Granulocyte % 47.9 % N 38-83 Lymphocyte % 27.4 % N 25-47 Monocyte % 23.1 % High 1-9 Eosinophil % 1.3 % N 0-6 Basophil % 0.3 % N 0-2 Nucleated Red Blood Cells % 0.1 N CBC Auto Diff 01/18/2017 [facility] White Blood 6.6 10^3/uL N 3.5-10.[address] Count [place], [place] [id number] [phone] Red Blood Count 4.27 10^6/uL N 4.0-5.4 Hemoglobin 12.5 g/dL Low 14.0-18.0 Hematocrit 37 % Low 42-52 Mean Corpuscular Volume 88 fL N 80-94 Mean Corpuscular Hemoglobin 29 pg N 27-31 Mean Corpuscular HGB Conc 33 g/dL N 31-36 Red Cell Distribution Width 14 % N 10.5-15 Platelet Count 201 10^3/uL N 150-450 Mean Platelet Volume 7 um3 Low 7.4-10.4 Abs Neutrophils 5.1 10^3/uL N 1.5-7.7 Abs Lymphocytes 0.7 10^3/uL Low 1.0-4.8 Abs Monocytes 0.7 10^3/uL N 0-0.8 Abs Eosinophils 0 10^3/uL N 0-0.6 Abs Basophils 0 10^3/uL N 0-0.2 Abs Nucleated RBC 0 10^3/uL N Granulocyte % 77.6 % N 38-83 Lymphocyte % 10.9 % Low 25-47 Monocyte % 11.3 % High 1-9 Eosinophil % 0.1 % N 0-6 Basophil % 0.1 % N 0-2 Nucleated Red Blood Cells % 0 N Laboratory test 01/18/2017 [facility] C Reactive 76.79 mg/L High < 5.00 [address] [place] [address] [phone] Blood Culture SEE RESULT BELOW 23 Laboratory test 01/17/2017 [facility] Surgical SEE RESULT [address] [place] [address] [phone] CBC Auto Diff 11/22/2016 [facility] White Blood 3.8 10^3/uL N 3.5-[address] Count .8 [place] [address] [phone] Red Blood Count 4.60 10^6/uL N 4.0-5.4 Hemoglobin 13.5 g/dL Low 14.0-18.0 Hematocrit 40 % Low 42-52 Mean Corpuscular Volume 86 fL N 80-94 Mean Corpuscular Hemoglobin 29 pg N 27-31 Mean Corpuscular HGB Conc 34 g/dL N 31-36 Red Cell Distribution Width 13 % N 10.5-15 Platelet Count 227 10^3/uL N 150-450 Mean Platelet Volume 7 um3 Low 7.4-10.4 Abs Neutrophils 2.1 10^3/uL N 1.5-7.7 Abs Lymphocytes 1.1 10^3/uL N 1.0-4.8 Abs Monocytes 0.5 10^3/uL N 0-0.8 Abs Eosinophils 0 10^3/uL N 0-0.6 Abs Basophils 0 10^3/uL N 0-0.2 Abs Nucleated RBC 0.01 10^3/uL N Granulocyte % 55.3 % N 38-83 Lymphocyte % 28.7 % N 25-47 Monocyte % 14.2 % High 1-9 Eosinophil % 1.3 % N 0-6 Basophil % 0.5 % N 0-2 Nucleated Red Blood Cells % 0.1 N Laboratory test 11/01/2016 [facility] A Strep negative finding Lipid Profile 10/25/2016 [facility] Triglycerides 62 mg/dL N 25 (Trig/Chol/HDL) [address] [place] [address] [phone] Cholesterol 178 mg/dL N 26 HDL Cholesterol 39.3 mg/dL N 27 LDL Cholesterol 126 mg/dL N 28 Comp Metabolic Panel 10/25/2016 [facility] Sodium 135 mmol/L N 133-145 [address] [place] [address] [phone] Potassium 4.4 mmol/L N 3.5-5.0 Chloride 100 mmol/L Low 101-111 Co2 Carbon Dioxide 29 mmol/L N 22-32 Anion Gap 6 mmol/L N 2-11 Glucose 95 mg/dL N 70-100 Blood Urea Nitrogen 16 mg/dL N 6-24 Creatinine 0.99 mg/dL N 0.67-1.17 BUN/Creatinine Ratio 16.2 N 8-20 Calcium 9.9 mg/dL N 8.6-10.3 Total Protein 7.8 g/dL N 6.4-8.9 Albumin 4.6 g/dL N 3.2-5.2 Globulin 3.2 g/dL N 2-4 Albumin/Globulin Ratio 1.4 N 1-3 Total Bilirubin 0.80 mg/dL N 0.2-1.0 Alkaline Phosphatase 62 U/L N 34-104 Alt 11 U/L N 7-52 Ast 15 U/L N 13-39 Egfr Non- 84.6 N >60 Egfr 108.8 N >60 29 CBC Auto 10/25/2016 [facility] White Blood 2.6 10^3/uL Low 3.5 -10.8 [address] [place] [address] [phone] Red Blood Count 4.83 10^6/uL N 4.0-5.4 Hemoglobin 14.1 g/dL N 14.0-18.0 Hematocrit 42 % N 42-52 Mean Corpuscular Volume 87 fL N 80-94 Mean Corpuscular Hemoglobin 29 pg N 27-31 Mean Corpuscular HGB Conc 34 g/dL N 31-36 Red Cell Distribution Width 14 % N 10.5-15 Platelet Count 216 10^3/uL N 150-450 Mean Platelet Volume 7 um3 Low 7.4-10.4 Abs Neutrophils 1.2 10^3/uL Low 1.5-7.7 Abs Lymphocytes 0.9 10^3/uL Low 1.0-4.8 Abs Monocytes 0.5 10^3/uL N 0-0.8 Abs Eosinophils 0 10^3/uL N 0-0.6 Abs Basophils 0 10^3/uL N 0-0.2 Abs Nucleated RBC 0 10^3/uL N Granulocyte % 45.2 % N 38-83 Lymphocyte % 32.6 % N 25-47 Monocyte % 20.5 % High 1-9 Eosinophil % 1.4 % N 0-6 Basophil % 0.3 % N 0-2 Nucleated Red Blood Cells % 0 N Laboratory test 10/25/2016 [facility] Creatine 97 U/L N 10- 223 [address] Kinase(CK) [place] [address] [phone] Creatinine 10/25/2016 [facility] Creatinine 1.00 High 0.51- 0.[address] mg/[place] [address] [phone] Urine Collection Time 24 N Urine Total Volume 1850 mL N Urine Random Creatinine 84.68 mg/dL N Creatinine Clearance 109 mL/min N 97-137 Microalbumin 24HR 10/25/2016 [facility] Urine Collection 24 N Urine [address] [place] [address] [phone] Urine Total Volume 1850 mL N Ur Microalbumin (mg/L) 30.8 mg/L N Urine Microalbumin (mg/24Hr) 57.0 mg/24hr High Less than 30 Urine Microalbumin (mcg/min) 39.6 mcg/min High Less than 20 Lyme Disease 10/25/2016 [facility] B burgdorferi Negative N Negative PCR [address] PCR, [place] [address] [phone] B mayonii PCR Negative N Negative B garinii/B afzelii PCR Negative N Negative Lyme Disease PCR Comment See Comment N 32 CBC Auto Diff 09/23/2016 [facility] White Blood 4.7 10^3/uL N 3.5-10.[address] [place] [address] [phone] Red Blood Count 4.98 10^6/uL N 4.0-5.4 Hemoglobin 14.6 g/dL N 14.0-18.0 Hematocrit 44 % N 42-52 Mean Corpuscular Volume 87 fL N 80-94 Mean Corpuscular Hemoglobin 29 pg N 27-31 Mean Corpuscular HGB Conc 34 g/dL N 31-36 Red Cell Distribution Width 14 % N 10.5-15 Platelet Count 264 10^3/uL N 150-450 Mean Platelet Volume 7 um3 Low 7.4-10.4 Abs Neutrophils 1.8 10^3/uL N 1.5-7.7 Abs Lymphocytes 2.0 10^3/uL N 1.0-4.8 Abs Monocytes 0.8 10^3/uL N 0-0.8 Abs Eosinophils 0.1 10^3/uL N 0-0.6 Abs Basophils 0 10^3/uL N 0-0.2 Abs Nucleated RBC 0.01 10^3/uL N Granulocyte % 38.2 % N 38-83 Lymphocyte % 42.8 % N 25-47 Monocyte % 16.8 % High 1-9 Eosinophil % 1.3 % N 0-6 Basophil % 0.9 % N 0-2 Nucleated Red Blood Cells % 0.2 N Comp Metabolic Panel 09/23/2016 [facility] Sodium 134 mmol/L N 133-[address] [place] [address] [phone] Chloride 99 mmol/L Low 101-111 Co2 Carbon Dioxide 29 mmol/L N 22-32 Glucose 95 mg/dL N 70-100 Blood Urea Nitrogen 19 mg/dL N 6-24 Creatinine 0.98 mg/dL N 0.67-1.17 BUN/Creatinine Ratio 19.4 N 8-20 Calcium 9.5 mg/dL N 8.6-10.3 Total Protein 8.1 g/dL N 6.4-8.9 Albumin 4.5 g/dL N 3.2-5.2 Globulin 3.6 g/dL N 2-4 Albumin/Globulin Ratio 1.3 N 1-3 Total Bilirubin 0.70 mg/dL N 0.2-1.0 Alkaline Phosphatase 65 U/L N 34-104 Alt 13 U/L N 7-52 Egfr Non- 85.6 N >60 Egfr 110.1 N >60 33 Potassium 4.1 mmol/L N 3.5-5.0 Anion Gap 6 mmol/L N 2-11 Ast 19 U/L N 13-39 Lipid Profile 09/23/2016 [facility] Triglycerides 215 mg/dL N 34 (Trig/Chol/HDL) [address] [place] [address] [phone] Cholesterol 208 mg/dL N 35 HDL Cholesterol 33.5 mg/dL N 36 LDL Cholesterol 132 mg/dL N 37 Laboratory test 09/23/2016 [facility] Troponin-I 0.01 ng/mL N <0.04 38 finding 101 (TnI) [place] [address] [phone] Inr/Protime 09/23/2016 [facility] Inr 1.00 N 0.89-1.[address] [place] [address] [phone] Laboratory test 09/23/2016 [facility] Partial Thrombo 31.8 N 26.0-36.[address] [place] [address] [phone] Lactic Acid 0.8 mmol/L N 0.5-2.0 39 Type & Screen 09/23/2016 [facility] Patient Blood Type O Positive [place] [address] [place] [address] [phone] Antibody Screen NEGATIVE N Urinalysis Profile 09/23/2016 [facility] Urine Color Yellow [place] [address] [place] [address] [phone] Urine Appearance Clear N Urine Specific [place] 1.019 N 1.010-1.030 Urine pH 6.0 N 5-9 Urine Urobilinogen Negative N Negative Urine Ketones Negative N Negative Urine Protein 1+(30 mg/dL) Abnormal Negative Urine Leukocytes Negative N Negative Urine Blood 2+ Abnormal Negative Urine Nitrite Negative N Negative Urine Bilirubin Negative N Negative Urine Glucose Negative N Negative Urine White Blood Cell Trace(0-5/hpf) N Absent Urine Red Blood Cell 2+(6-10/hpf) Abnormal Absent Urine Bacteria Absent N Absent Urine Hyaline Casts Present Abnormal Absent Lipid Profile 11/24/2015 [facility] Triglycerides 107 mg/dL N 40 (Trig/Chol/HDL) [address] [place] [address] [phone] Cholesterol 194 mg/dL N 41 HDL Cholesterol 35.8 mg/dL N 42 LDL Cholesterol 137 mg/dL N 43 Basic Metabolic Panel 11/24/2015 [facility] Sodium 136 mmol/L N 133-145 [address] [place] [address] [phone] Potassium 4.8 mmol/L N 3.5-5.0 Chloride 101 mmol/L N 101-111 Co2 Carbon Dioxide 30 mmol/L N 22-32 Anion Gap 5 mmol/L N 2-11 Glucose 99 mg/dL N 70-100 Blood Urea Nitrogen 21 mg/dL N 6-24 Creatinine 0.98 mg/dL N 0.67-1.17 BUN/Creatinine Ratio 21.4 High 8-20 Calcium 9.7 mg/dL N 8.6-10.3 Egfr Non- 86.1 N >60 Egfr 110.7 N >60 44 Creatinine 11/24/2015 [facility] Creatinine 0.98 mg/dL High 0.51-0.95 Clearance [address] [place] [address] [phone] Urine Collection Time 24 N Urine Total Volume 950 mL N Urine Random Creatinine 161.12 mg/dL N Creatinine Clearance 108 mL/min N 97-137 Microalbumin 24HR 11/24/2015 [facility] Urine Collection [address] [place] [address] [phone] Urine Total Volume 950 mL N Ur Microalbumin (mg/L) 49.0 mg/L N Urine Microalbumin (mg/24Hr) 46.6 mg/24hr High Less than 30 Urine Microalbumin (mcg/min) 32.3 mcg/min High Less than 20 Urine Microalbumin 11/24/2015 [facility] Ur Microalbumin 168.0 mg/L N Random [address] (mg/L) [place] [address] [phone] Urine Creatinine 374.62 mg/dL N Urine Microalbumin/Creatinine 44.8 ug/mg High <31 Throat-Beta 12/09/2014 [facility] Throat Beta Strep (SEE NOTE) [address] [place] [address] [phone] Lipid Profile 09/07/2014 [facility] Triglycerides 74 mg/dL N 46, 47 (Trig/Chol/HDL) [address] [place] [address] [phone] Cholesterol 207 mg/dL N 48 HDL Cholesterol 40.9 mg/dL N 49 LDL Cholesterol 151 mg/dL N 50 Laboratory test 09/07/2014 [facility] Glucose 96 mg/dL N 70- [address] [place] [address] [phone] Basic Metabolic Panel 09/07/2014 [facility] Sodium 135 mmol/L N 133-[address] [place] [address] [phone] Potassium 4.6 mmol/L N 3.5-5.0 Chloride 99 mmol/L Low 101-111 Co2 Carbon Dioxide 29 mmol/L N 22-32 Anion Gap 7 mmol/L N 2-11 Blood Urea Nitrogen 23 mg/dL N 6-24 Creatinine 1.07 mg/dL N 0.67-1.17 BUN/Creatinine Ratio 21.5 High 8-20 Calcium 9.5 mg/dL N 8.6-10.3 Egfr Non- 78.2 N >60 Egfr 100.6 N >60 51 Microalbumin 24HR 09/07/2014 [facility] Ur Microalbumin 35.0 mg/ L N Urine [address] (mg/L) [place] [address] [phone] Urine Microalbumin (mg/24Hr) 35.0 mg/24hr High Less than 30 Urine Microalbumin (mcg/min) 24.3 mcg/min High Less than 20 Urine Collection Time 24 N Urine Total Volume 1000 mL N Creatinine 09/07/2014 [facility] Urine Random 170.36 mg/dL N Clearance [address] Creatinine [place], [place] [address] [phone] Creatinine 1.09 mg/dL High 0.51-0.95 Creatinine Clearance 109 mL/min N 97-137 Urine Collection Time 24 N Urine Total Volume 1000 mL N Total Protein 24HR 12/27/2012 [facility] Urine Random Total 15 mg/dL Urine [address] [place] [address] [phone] Urine Total Protein/24HR 210 mg/24Hr High 0-165 Urine Collection Time 24 Urine Total Volume 1400 mL Laboratory test 10/18/2012 [facility] TSH (Thyroid 2.31 0.34- 5.[address] Stimulating miu/[place] [address] Horm) [phone] Vitamin B12 439 pg/mL 180-914 Iron & Iron Binding 10/18/2012 [facility] Iron 73 g/dL 45- [address] [place] [address] [phone] Unsaturated Iron Binding 356 g/dL Total Iron Binding Capacity 429 g/dL 250-450 % Iron Saturation 17 % 15-55 Laboratory 10/18/2012 [facility] Luly (Anti-Nuclear Negative Negative test finding [address] AB) [place] [address] [phone] Creatinine 10/23/2011 [facility] Creatinine Random 199.3 mg/dL [address] [place] [address] [phone] Creat Clearance 115 mL/min 80-125 Hours Of Collection 24 HR 24- Urine Volume Measurement 750 ML Total Protein 24HR 10/23/2011 [facility] Total Protein 38 mg/dL Urine [address] [place] [address] [phone] Urine Total Protein/24HR 285 MG/24HR High 50-100 Lipid Profile 10/23/2011 [facility] Triglyceride 78 mg/dL 40- 200 (Trig/Chol/HDL) [address] [place] [address] [phone] Cholesterol 191 mg/dL Less Than 200 53 High Density Lipoprotein 32 mg/dL Low 40-60 54 Cholesterol/HDL Ratio 5.97 AVERAGE High 1-4.97 Low Density Lipoprotein 143 mg/dL High Less Than 100 55 Basic Metabolic Panel 10/23/2011 [facility] Sodium 138 mmol/L 135-145 [address] [place] [address] [phone] Potassium 4.9 mmol/L 3.5-5.0 Chloride 101 mmol/L 101-111 Co2 (Carbon Dioxide) 29.0 mmol/L 22-32 Anion Gap 8.0 mmol/L 2-11 56 Glucose 94 mg/dL 70-100 BUN 16 mg/dL 6-24 Creatinine 0.9 mg/dL 0.50-1.40 One Over Creatinine 1.11 BUN/Creatinine Ratio 17.8 8-20 Calcium 9.2 mg/dL 8.1-9.9 eGFR Non- 97.2 > 60 eGFR 125.0 > 60 57 1 No evidence of antibodies to B. burgdorferi detected. False negative results may occur in recently infected patients (<=2 weeks) due to low or undetectable antibody levels to B. burgdorferi. If recent exposure is suspected, a second sample should be collected and tested in 2-4 weeks. Test Performed by: [facility] [address] [place] [address] 2 ADDITIONAL INFORMATION This test was developed and its performance characteristics determined by [facility] in a manner consistent with CLIA requirements. This test has not been cleared or approved by the U.S. Food and Drug Administration. 3 ADDITIONAL INFORMATION This test was developed and its performance characteristics determined by [facility] in a manner consistent with CLIA requirements. This test has not been cleared or approved by the U.S. Food and Drug Administration. 4 ADDITIONAL INFORMATION This test was developed and its performance characteristics determined by [facility] in a manner consistent with CLIA requirements. This test has not been cleared or approved by the U.S. Food and Drug Administration. Test Performed by: [facility] - [address] [address] 5 SEE RESULT BELOW Name: ALDEN MAHONEY : [address]: Suzie Livingston NP Acct: [id number] Unit: [id number] AGE: 38 Location: [facility] Re07/17/18 SEX: M Status: REG REF SPEC: [id number] YENNI: 07/17/[address]: Suzie Livingston NP REQ: [id number] RECD: 07/17/18 STATUS: GENESIS BERRY DR: Mauro Huber MD _ SOURCE: BLOOD,VENO SPDESC: ORDERED: Blood Cult Procedure Result Reported Site Aerobic Culture Bottle Final 07/22/18- 1644 ML No Growth Day 5 Anaerobic Culture Bottle Final 07/22/18- 1644 ML No Growth Day 5 * ML - Main Lab . END OF REPORT DEPARTMENT OF PATHOLOGY, [address] [place] [address] Kojo Hou M.D. Director [facility] # [id number] 6 Normal Range 180 to 914 Indeterminate Range 145 to 180 Deficient Range <145 7 Because ethnic data is not always readily available, this report includes an eGFR for both -Americans and non- Americans. The National Kidney Disease Education Program (NKDEP) does not endorse the use of the MDRD equation for patients that are not between the ages of 18 and 70, are , have extremes of body size, muscle mass, or nutritional status, or are non- or non-. According to the National Kidney Foundation, irrespective of diagnosis, the stage of the disease is based on the level of kidney function: Stage Description GFR(mL/min/1.73 m(2)) 1 Kidney damage with normal or decreased GFR 90 2 Kidney damage with mild decrease in GFR 60-89 3 Moderate decrease in GFR 30-59 4 Severe decrease in GFR 15-29 5 Kidney failure <15 (or dialysis) 8 Desirable: <150 Borderline High: 150-199 High: 200-499 Very High: >500 9 Desirable: <200 Borderline High: 200-239 High: >239 10 Low: <40 Desirable: 40-60 High: >60 11 Desirable: <100 Near Optimal: 100-129 Borderline High: 130-159 High: 160-189 Very High: >189 12 Normal Range 180 to 914 Indeterminate Range 145 to 180 Deficient Range <145 13 ADDITIONAL INFORMATION This test has been modified from the entertainment manager's instructions. Its performance characteristics were determined by [facility] in a manner consistent with CLIA requirements. This test has not been cleared or approved by the U.S. Food and Drug Administration. Test Performed by: [place] [address] 14 Normal Range 180 to 914 Indeterminate Range 145 to 180 Deficient Range <145 15 ADDITIONAL INFORMATION This test has been modified from the entertainment manager's instructions. Its performance characteristics were determined by [facility] in a manner consistent with CLIA requirements. This test has not been cleared or approved by the U.S. Food and Drug Administration. Test Performed by: [place] [address] 16 UFH therapeutic range: 0.30-0.70 IU/mL LMWH therapeutic range: 0.50-1.00 IU/mL 0.50-1.00 IU/mL for twice daily dosing 1.00-2.00 IU/mL for once daily dosing (sample obtained 4-6 hours following subcutaneous injection) LMWH prophylactic range:0.10-0.30 IU/mL ADDITIONAL INFORMATION Heparin Anti-Xa is used to measure heparin concentrations in patients receiving low molecular weight heparin (LMWH) or unfractionated heparin (UFH). Test Performed by: [place] [address] 17 Test Performed by: [place] [address] 18 Acute inflammation: >10.00 19 Because ethnic data is not always readily available, this report includes an eGFR for both -Americans and non- Americans. The National Kidney Disease Education Program (NKDEP) does not endorse the use of the MDRD equation for patients that are not between the ages of 18 and 70, are , have extremes of body size, muscle mass, or nutritional status, or are non- or non-. According to the National Kidney Foundation, irrespective of diagnosis, the stage of the disease is based on the level of kidney function: Stage Description GFR(mL/min/1.73 m(2)) 1 Kidney damage with normal or decreased GFR 90 2 Kidney damage with mild decrease in GFR 60-89 3 Moderate decrease in GFR 30-59 4 Severe decrease in GFR 15-29 5 Kidney failure <15 (or dialysis) 20 Acute inflammation: >10.00 21 SEE RESULT BELOW Name: ALDEN MAHONEY : [address]: Licha Barraza MD Acct: [id number] Unit: [id number] AGE: 36 Location: [place] [address] Re01/26/17 Dis: 01/28/17 SEX: M Status: DIS Kylie SPEC: [id number] YENNI: 01/26/17-[address] [facility] [address]: Licha Barraza MD REQ: [id number] RECD: 01/26/17124 STATUS: [facility] DR: Mauro Wells MD _ SOURCE: BLOOD,VENO SPDES: ORDERED: Blood Cult Procedure Result Reported Site Aerobic Culture Bottle Final 01/31/17- 1244 ML No Growth Day 5 Anaerobic Culture Bottle Final 01/31/17- 1244 ML No Growth Day 5 * ML - MAIN LAB ([facility]) . END OF REPORT * ML=Testing performed at Main Lab DEPARTMENT OF PATHOLOGY, [address] [place] [address] Kojo Hou M.D. Director [facility] # [id number] 22 Acute inflammation: >10.00 23 SEE RESULT BELOW Name: ALDEN MAHONEY : [address]: Boni Wells MD Acct: [id number] Unit: [id number] AGE: 36 Location: LAB Re01/18/17 SEX: M Status: REG REF SPEC: [id number] YENNI: 01/18/[address]: Boni Wells MD REQ: [id number] RECD: 01/18/17 STATUS: GENESIS BERRY DR: Mauro Huber MD _ SOURCE: BLOOD,VENO SPDESC: ORDERED: Blood Cult Procedure Result Reported Site Aerobic Culture Bottle Final 01/23/17- 1552 ML No Growth Day 5 Anaerobic Culture Bottle Final 01/23/17- 1552 ML No Growth Day 5 * ML - MAIN LAB ([facility]) . END OF REPORT * ML=Testing performed at Main Lab DEPARTMENT OF PATHOLOGY, [address] [place] [address] Kojo Hou M.D. Director [facility] # [id number] 24 SEE RESULT BELOW Name: ALDEN MAHONEY : [address]: Boni Wells MD Acct: [id number] Unit: [id number] AGE: 36 Location: [facility] Re01/17/17 SEX: M Status: REG REF SPEC: [id number] YENNI: 01/17/17-[address] [facility] [address]: Boni Wells MD REQ: [id number] RECD: 01/17/174300 STATUS: SOUT _ ORDERED: LEVEL 1 FINAL DIAGNOSIS Pacemaker generator, removal: Foreign body (pacemaker generator) (Gross diagnosis). PRE-OPERATIVE DIAGNOSIS AV block, pacemaker elective replacement indication GROSS DESCRIPTION The specimen is received fresh with no source identified and a requisition labeled, Pacemaker Generator, and consists of a 4.2 x 4.0 x 0.7 cm quinonez metallic medical record specialist. The following inscription is identified: [employer] [id number] [facility]. Per established hospital medical staff protocol, no tissue is submitted. Gross only. Signed (signature on file) Lore Sykes MD 01/29 0944 END OF REPORT * ML=Testing performed at Main Lab DEPARTMENT OF PATHOLOGY, [address] [place] [address] Kojo Hou M.D. Director [facility] # [id number] 25 Desirable <150 Borderline high 150-199 High 200-499 Very High >500 26 Desirable <200 Borderline high 200-239 High >239 27 Low <40 Desirable: 40-60 High: >60 28 Desirable: <100 mg/dL Near Optimal: 100-129 mg/dL Borderline High: 130-159 mg/dL High: 160-189 mg/dL Very High: >189 mg/dL 29 Because ethnic data is not always readily available, this report includes an eGFR for both -Americans and non- Americans. The National Kidney Disease Education Program (NKDEP) does not endorse the use of the MDRD equation for patients that are not between the ages of 18 and 70, are , have extremes of body size, muscle mass, or nutritional status, or are non- or non-. According to the National Kidney Foundation, irrespective of diagnosis, the stage of the disease is based on the level of kidney function: Stage Description GFR(mL/min/1.73 m(2)) 1 Kidney damage with normal or decreased GFR 90 2 Kidney damage with mild decrease in GFR 60-89 3 Moderate decrease in GFR 30-59 4 Severe decrease in GFR 15-29 5 Kidney failure <15 (or dialysis) 30 Consistent with previous results on 09/25/16. 31 FASTING 10 HOUR 32 A negative result does not exclude infection with Borrelia burgdorferi. Serologic testing as per CDC guidelines may be indicated. ADDITIONAL INFORMATION This test was developed and its performance characteristics determined by [facility] in a manner consistent with CLIA requirements. This test has not been cleared or approved by the U.S. Food and Drug Administration. Test Performed by: [facility] - [address] [address] 33 Because ethnic data is not always readily available, this report includes an eGFR for both -Americans and non- Americans. The National Kidney Disease Education Program (NKDEP) does not endorse the use of the MDRD equation for patients that are not between the ages of 18 and 70, are , have extremes of body size, muscle mass, or nutritional status, or are non- or non-. According to the National Kidney Foundation, irrespective of diagnosis, the stage of the disease is based on the level of kidney function: Stage Description GFR(mL/min/1.73 m(2)) 1 Kidney damage with normal or decreased GFR 90 2 Kidney damage with mild decrease in GFR 60-89 3 Moderate decrease in GFR 30-59 4 Severe decrease in GFR 15-29 5 Kidney failure <15 (or dialysis) 34 Desirable <150 Borderline high 150-199 High 200-499 Very High >500 35 Desirable <200 Borderline high 200-239 High >239 36 Low <40 Desirable: 40-60 High: >60 37 Desirable: <100 mg/dL Near Optimal: 100-129 mg/dL Borderline High: 130-159 mg/dL High: 160-189 mg/dL Very High: >189 mg/dL 38 99th percentile=0.04 ng/mL Troponin results at [facility] and [facility] are not interchangeable. 39 [facility] Severe Sepsis and Septic Shock Management Bundle Measure requires all lactic acids initially measuring >2.0 mmol/L be repeated. 40 Desirable <150 Borderline high 150-199 High 200-499 Very High >500 41 Desirable <200 Borderline high 200-239 High >239 42 Low <40 Desirable: 40-60 High: >60 43 Desirable: <100 mg/dL Near Optimal: 100-129 mg/dL Borderline High: 130-159 mg/dL High: 160-189 mg/dL Very High: >189 mg/dL 44 Because ethnic data is not always readily available, this report includes an eGFR for both -Americans and non- Americans. The National Kidney Disease Education Program (NKDEP) does not endorse the use of the MDRD equation for patients that are not between the ages of 18 and 70, are , have extremes of body size, muscle mass, or nutritional status, or are non- or non-. According to the National Kidney Foundation, irrespective of diagnosis, the stage of the disease is based on the level of kidney function: Stage Description GFR(mL/min/1.73 m(2)) 1 Kidney damage with normal or decreased GFR 90 2 Kidney damage with mild decrease in GFR 60-89 3 Moderate decrease in GFR 30-59 4 Severe decrease in GFR 15-29 5 Kidney failure <15 (or dialysis) 45 RUN DATE: 12/12/14 [facility] LAB LIVE PAGE 1 RUN TIME: [address] [place] [address] Specimen Inquiry Name: ALDEN MAHONEY : [address]: Federico Walters MD Acct: [id number] Unit: [id number] AGE: 34 Location: [facility] Re12/09/14 SEX: M Status: DEP ER SPEC: [id number] YENNI: 12/09/[address] [facility] [address]: Federico Walters MD REQ: [id number] RECD: 12/10/14 STATUS: COMP [facility] DR: Mauro Huber MD _ SOURCE: THROAT SPDESC: ORDERED: Throat Beta Str Procedure Result Verified Site Throat Beta Strep Culture Final 12/12/14- 851 ML Negative For Group A Beta Streptococcus * ML - MAIN LAB ([facility]) . END OF REPORT * ML=Testing performed at Main Lab DEPARTMENT OF PATHOLOGY, [address] [place] [address] Kojo Hou M.D. Director [facility] # [id number] 46 FASTING 10 HOUR 47 Desirable <150 Borderline high 150-199 High 200-499 Very High >500 48 Desirable <200 Borderline high 200-239 High >239 49 Low <40 Desirable: 40-60 High: >60 50 Desirable <100 Near Optimal 100-129 Borderline high 130-159 High 160-189 Very High >189 51 Because ethnic data is not always readily available, this report includes an eGFR for both -Americans and non- Americans. The National Kidney Disease Education Program (NKDEP) does not endorse the use of the MDRD equation for patients that are not between the ages of 18 and 70, are , have extremes of body size, muscle mass, or nutritional status, or are non- or non-. According to the National Kidney Foundation, irrespective of diagnosis, the stage of the disease is based on the level of kidney function: Stage Description GFR(mL/min/1.73 m(2)) 1 Kidney damage with normal or decreased GFR 90 2 Kidney damage with mild decrease in GFR 60-89 3 Moderate decrease in GFR 30-59 4 Severe decrease in GFR 15-29 5 Kidney failure <15 (or dialysis) 52 FASTING PATIENT TOOK FISH OIL PILL AT 820 THIS MORNING. COLLECTED FROM 04/26 0900 THROUGH 10/23/11 0900. PATIENT TOOK FISH OIL PILL AT 820 THIS MORNING. 53 CHOLESTEROL INTERPRETATION: Desirable: Less than 200 MG/DL Borderline-High Risk: 200-239 MG/DL High-Risk: 240 MG/DL and over 54 HDL INTERPRETATION: Undesirable: High Risk: Less than 40 MG/DL Desirable: Low Risk: Greater than 60 MG/DL 55 LDL INTERPRETATION: Low Risk Optimal Level: LDL Less than 100 MG/DL Near or Above Optimal: LDL 100-129 MG/DL Borderline High Risk: LDL 130-159 MG/DL High Risk: LDL 160-189 MG/DL Very High Risk: LDL Greater than 189 MG/DL 56 Anion gap measurement may be of limited value in the presence of any alkalosis, especially in a combined acid base disorder. . 57 Because ethnic data is not always readily available, this report includes an eGFR for both -Americans and non- Americans. The National Kidney Disease Education Program (NKDEP) does not endorse the use of the MDRD equation for patients that are not between the ages of 18 and 70, are , have extremes of body size, muscle mass, or nutritional status, or are non- or non-. According to the National Kidney Foundation, irrespective of diagnosis, the stage of the disease is based on the level of kidney function: Stage Description GFR(mL/min/1.73 m(2)) 1 Kidney damage with normal or decreased GFR 90 2 Kidney damage with mild decrease in GFR 60-89 3 Moderate decrease in GFR 30-59 4 Severe decrease in GFR 15-29 5 Kidney failure <15 (or dialysis) Procedures Date Code Description Status 01/20/2018 77977 Pace Maker Eval W/Iterative Adjustment Single Lead Completed 01/20/2018 07105 Pace Maker Eval W/Iterative Adjustment Single Lead Completed 11/04/2017 63943 EKG Tracing & Interpretation Completed 07/22/2017 50666 Pace Maker Eval W/Iterative Adjustment Single Lead Completed 07/22/2017 11715 Pace Maker Eval W/Iterative Adjustment Single Lead Completed 01/26/2017 80265 I&D Of Hematoma Completed 01/17/2017 96296 Removal Pacemaker W/Replacement Of Pacemaker Pulse Completed Generator 11/24/2016 25202 ECHO Transthoracic, Real-Time 2D With Doppler And Color Completed Flow 11/24/2016 03653 Interrogation Device Eval In Person W/ Completed Analysis,Single,Dual,Mul 11/04/2016 52849 Pace Maker Eval W/Iterative Adjustment Single Lead Completed 10/13/2016 35763 EKG Tracing & Interpretation Completed 09/24/2016 61751 EEG Recording Awake & Drowsy Completed 09/24/2016 33652 ECHO Transthorasic Realtime 2D W Doppler & Color Flow Hosp Completed 09/06/2016 84240 Interrogation Device Eval In Person W/ Completed Analysis,Single,Dual,Mul 07/07/2016 72960 Interrogation Device Eval In Person W/ Completed Analysis,Single,Dual,Mul 05/21/2016 32178 EKG Tracing & Interpretation Completed 05/07/2016 37287 Pace Maker Eval W/Iterative Adjustment Single Lead Completed 10/21/2015 58619 Pace Maker Eval W/Iterative Adjustment Single Lead Completed 05/29/2015 96881 EKG Tracing & Interpretation Completed 04/30/2015 65495 Interrogation Device Eval In Person W/ Completed Analysis,Single,Dual,Mul 11/14/2014 30178 ECHO Transthoracic, Real-Time 2D With Doppler And Color Completed Flow 10/14/2014 61628 Pace Maker Eval W/Iterative Adjustment Single Lead Completed 04/10/2014 26152 Pace Maker Eval W/Iterative Adjustment Single Lead Completed 09/27/2013 78758 Interrogation Device Eval In Person W/ Completed Analysis,Single,Dual,Mul 03/28/2013 94249 Pace Maker Eval W/Iterative Adjustment Single Lead Completed 09/27/2012 96321 Pace Maker Eval W/Iterative Adjustment Single Lead Completed 09/19/2012 84356 ECHO Transthoracic, Real-Time 2D With Doppler And Color Completed Flow Encounters Type Date Location Provider Dx Diagnosis Office Visit 07/17/2018 [facility] Suzie Livingston, R53.81 Other malaise 3:40p Medicine - N.PCaleb JoyAlbert Office Visit 11/04/2017 [facility] Boni Dee I44.2 Atrioventricular 11:15a Of [place] Wells M.D. block, complete Z95.0 Presence of cardiac pacemaker I48.2 Chronic atrial fibrillation Office Visit 06/13/2017 [facility] Mauro Dee Z79.01 snf ( current) 10:30a Armen Huber M.D.,FACP use of [address] anticoagulants L65.9 Nonscarring hair loss, unspecified R63.4 Abnormal weight loss Office Visit 04/29/2017 3:00p [facility] Boni Dee Z95.0 Presence of Of [place] Wells M.D. cardiac pacemaker I48.2 Chronic atrial fibrillation Office Visit 02/11/2017 9:40a [facility] Mary Dee I97.638 Postproc Armen Huber M.D.,FACP hematoma of a [address] circ sys org fol other circ sys proc I48.2 Chronic atrial fibrillation Office Visit 02/01/2017 11:30a [facility] Adam Dee I97.638 Postproc Infectious Rosa Colbert hematoma of a Diseases circ sys org fol other circ sys proc R79.82 Elevated C-reactive protein (CRP) Z86.19 Personal history of other infectious and parasitic diseases Office Visit 01/28/2017 10:27a [facility] Adam Dee I97.638 Postproc Infectious Macqueen, M.D. hematoma of a Diseases circ sys org fol other circ sys proc R79.82 Elevated C-reactive protein (CRP) R50.9 Fever, unspecified Q24.6 Congenital heart block Office Visit 01/07/2017 11:00a [facility] Mauro Dee Z00.01 Encounter for Armen Huber M.D.,FACP general adult [address] medical exam w abnormal findings I42.9 Cardiomyopathy, unspecified I48.2 Chronic atrial fibrillation D64.89 Other specified anemias N18.1 Chronic kidney disease, stage 1 Office Visit 12/10/2016 2:30p [facility] Boni Dee Z95.0 Presence of Of [place] Wells M.D. cardiac pacemaker I44.2 Atrioventricular block, complete I48.2 Chronic atrial fibrillation Office Visit 12/08/2016 [facility] Internal Medicine Mauro Dee I73.00 Raynaud' s 9:30a - [address] Mayo, delvin without Rosa,FACP gangrene Office Visit 11/10/2016 [facility] Federico Rivera, I63.9 Cerebral 11:00a Clinic MD infarction, unspecified I48.2 Chronic atrial fibrillation R27.0 Ataxia, unspecified Z86.73 Prsnl hx of TIA (TIA), and cereb infrc w/o resid deficits Office Visit 11/01/2016 [facility] Jose Matthews, J00 Acute nasopharyngitis 10:40a Medicine - [address] [employer] [common cold] Rd Office Visit 10/13/2016 [facility] I48.2 Chronic atrial 10:45a Cardiology Of Rosa Wells fibrillation [facility] Z95.0 Presence of cardiac pacemaker I63.9 Cerebral infarction, unspecified Office Visit 09/27/2016 3:00p [facility] Mauro Dee 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.,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 E78.1 Pure hyperglyceridemia I48.2 Chronic atrial fibrillation I42.9 Cardiomyopathy, unspecified Office Visit 09/25/2016 4:11p [facility] I63.412 Cereb infrc Assoc,mami Tyler, [employer] due to Hospitalists embolism of left middle cerebral artery I48.2 Chronic atrial fibrillation I10 Essential (primary) hypertension G98.8 Other disorders of nervous system Office Visit 09/25/2016 [facility] Elana Gutiérrez, I63.9 Cerebral 10:52a Clinic infarction, unspecified I48.91 Unspecified atrial fibrillation Office Visit 09/24/2016 [facility] Federico I63.9 Cerebral 10:46a Clinic MD Nicole infarction, unspecified I48.91 Unspecified atrial fibrillation Office Visit 09/24/2016 4:10p [facility] Jonathan I63.412 Cereb infrc Assocmami M.D. 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 due to Hospitalists embolism of left middle cerebral artery I48.2 Chronic atrial fibrillation I10 Essential (primary) hypertension G98.8 Other disorders of nervous system Office Visit 05/21/2016 Lauro Dee I44.2 Atrioventricular 10:15a Cardiology Abhijeet Wells M.D. block, complete Pigment Processor Z95.0 Presence of cardiac pacemaker I48.2 Chronic atrial fibrillation Office Visit 01/28/2016 [facility] Mauro Dee L03.211 Cellulitis of face 8:50a [address], M.D.,FACP Office Visit 05/29/2015 Lauro Dee I44.2 Atrioventricular 10:00a Cardiology Abhijeet Wells M.D. block, complete Pigment Processor I48.2 Chronic atrial fibrillation I42.9 Cardiomyopathy, unspecified Z95.0 Presence of cardiac pacemaker Office Visit 01/17/2015 2:40p [facility] Mauro Dee 473.1 Sinusitis Chronic Armen Huber M.D.,FACP Frontal [address] Office Visit 12/11/2014 9:00a [facility] Federico Mi, [employer] 465.8 Upper Respiratory Medicine - Infections Acute [address] Other Multiple Sites 465.9 URI Upper Respiratory Infections Acute Unspec Sites Office Visit 05/16/2014 [facility] Boni Dee 426.0 Atrioventricular Block 12:30p Cardiology Abhijeet Wells M.D. Complete [facility] 427.31 Atrial Fibrillation Office Visit 09/20/2013 [facility] Mauro Dee 690.18 Seborrheic 11:50a Armen Huber M.D.,[facility] Dermatitis Other Albert Office Visit 05/03/2013 [facility] Boni Dee 425.4 Cardiomyopathy 12:45p Cardiology Abhijeet Wells M.D. Other Prim [facility] 426.0 Atrioventricular Block Complete Office Visit 10/18/2012 11:30a [facility] Mary Dee 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 Armen Huber M.D.,[facility] Plantar Fascia Albert 704.00 Alopecia Unspec Office Visit 09/27/2012 [facility] Boni Dee 426.0 Atrioventricular Block 3:15p Cardiology Abhijeet Wells M.D. Complete [facility] 425.4 Cardiomyopathy Other Prim Office Visit 05/30/2012 8:30a [facility] Mary Dee 380.4 Impacted Armen Huber M.D.,[facility] Cerumen Albert V04.81 Need For Prophylactic Vaccination & Inoculation/Influenza Office Visit 01/27/2012 2:00p [facility] Mary Dee V70.0 Examination Armen Huber M.D.,[facility] General [facility] Routine [facility] 427.31 Atrial Fibrillation 585.1 Chronic Kidney Disease Stage I v06.1 Npymkphujl-Jetecay-Gwrvbzow Combined (DTaP) Office Visit 10/20/2011 10:10a [facility] Mary Dee 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.,[facility]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 V48.5 Sensory Problem Head & Trunk 427.31 Atrial Fibrillation 272.2 Hyperlipidemia Mixed 791.0 Proteinuria Office Visit 12/22/2010 2:00p DO Not Use [place] Dee 427.31 Atrial AT Shayna Huber M.D.,[facility] Fibrillation 378.73 Strabismus In Other Neuromuscular Disorders 692.89 Dermatitis Due To Spec Agents Other 272.2 Hyperlipidemia Mixed Plan of Treatment Future Appointment(s):12/25/2018 1:00 pm - Roxana Tai MD at [facility] Internal Medicine - [address]07/19/2018 - Mauro Huber M.D.,FACPH66.92 Otitis media , unspecified, left earComments:Begin taking Amoxicillin/Clavulanate 2x daily until completed. Follow up with Dr. Dee as discussed.Referral:Moris Dee MD, Otolaryngology
--- OUTSIDE RECORDS SUMMARY | 2018-08-12 17:36 | XMS REPORT | Continuity of Care Document ---
:1980 External Reference #:[id number] Author Name Jluis Salazar Care Team Providers Name Role Phone Mauro Huber MD Primary Care Physician Unavailable Payers Type Date Identification Numbers Payment Provider Subscriber Effective: Policy Number: [id number] Medicare Alden Mahoney 2014 PayID: [id number] [address] [place] [address] Effective: 2014 Policy Number: [id number] Medicaid Alden Mahoney Group Name: 1 1 [address] PayID: [id number] [place] [address] Effective: 2010 Policy Number: [employer] Medicaid Alden Mahoney [id number] Expires: 2014 PayID: [id number] [address] [address] [place] [address] Advance Directives Description No Information Available Problems Date Description Provider Status Onset: 09/29/2012 Primary cardiomyopathy Mauro Huber M.D.,NATEP Active Note: EF 30-35% Onset: 05/29/2015 Chronic atrial fibrillation Boni Wells M.D. 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 Active Onset: 09/20/2014 Cardiac pacemaker in situ Joellen Mckoy M.D., FACP Onset: 09/20/2014 Pure hypercholesterolemia Joellen Mckoy M.D.,FACP Onset: 09/20/2014 Microalbuminuria Joellen Mckoy M.D.,FACP Onset: 11/10/2016 Cerebral artery occlusion Federico Rivera MD Active Onset: 11/10/2016 Coordination problem Federico Rivera MD Active Onset: 10/20/2011 Proteinuria Mauro Huber, Inactive Rosa,FACP Inactive: 09/20/2014 Onset: 12/22/2010 Atrial fibrillation Mauro Huber M.D.,FACP Inactive Inactive: 09/23/2015 Family History Date Family Member(s) Problem(s) Comments Onset: (age 48 Father HI Years) Father Kidney Stones Mother Alive And [...] Unknown Never Smoked Cigarettes Smoking Status Reviewed: 07/17/18 Never Smoked Cigarettes ETOH Use 01/07/2017 Rarely consumes alcohol Tobacco Use Start: Unknown Patient has never smoked Recreational Drug Use Denies Drug Use Exercise Type/Frequency Does not exercise Allergies, Adverse Reactions, Alerts Description No Known Drug Allergies Medications Medication Date Status Form Strength Qnty SIG Indications Ordering Provider Angélica 06/06 Active Tablets 5mg 1 by mouth I63.412 twice a day Luiz Huber M.D.,FACP Vitamin B 12 07/14 Active Lozenges 250mcg 100un by mouth its every day Luiz Huber M.D.,FACP Lisinopril 09/27 Active Tablets 5mg 90tab 1 by mouth s every day Luiz Huber M.D.,AKI Bystolic Active Tablets 2.5mg 90tab 1 tab by mouth every ramón Conte M.D.,FACP Probiotic Active Capsules 14cap 1 po qd Unknown /0000 s Vitamin D High 00 Active Capsules 1000Unit 1 by mouth Unknown Potency /0000 every day Eliquis 06/27 Hx Tablets 2.5mg 60tab 1 tablet by I63.412 Mauro s mouth twice Luiz Huber, - a day M.DCaleb,[facility] 06/06 Clindamycin HCL 01/28 Hx Capsules 300mg 21cap 1 capsule Licha s three times [place], - daily for 7 M.D. 02/01 Cephalexin 01/28 Hx Capsules 500mg 20cap 1 by mouth Other s four times a Ordering - day for 5 Provider Cephalexin 01/17 Hx Capsules 500mg 9caps three times Boni /2016 a day for 3 D. Brand, - days M.D. 01/24 Aspirin Ec 09/[address] 325mg 60tab 1 tab daily, s discontinue Ordering - when you Provider 09/27 Eliquis in 2-3 days Eliquis 09/27 Hx Tablets 5mg 60tab 1 by mouth I63.412 Mauro s twice a day Luiz Huber, - Rosa,[facility] 06/27 Lisinopril 09/27 Hx Tablets 2.5mg 30tab 1 by mouth s every day Luiz Huber, - (pt is Rosa,[facility] 09/27 taking 5mg) Atorvastatin 09/27 Hx Tablets 40mg 30tab 1 by mouth Other Calcium s every day Ordering - Provider 10/01 Doxycycline 01/25 Hx Capsules 100mg 12cap one tablet Other Hyclate /2015 s twice daily Ordering - for 6 days. Provider 01/31 Fluticasone 01/17 Hx Suspension 50mcg/Act 1bott 1 spray each 473.1 Gaetano Grayson le nostril in Luiz Huber, - in the M.DCaleb,[facility] 11/27 morning x3 wks then as needed Zyrtec Allergy 01/17 Hx Capsules 10mg 30cap as needed J32.1 Mauro s Luiz Huber, - Rosa,[facility] 11/27 Azithromycin 12/11 Hx Tablets 250mg 6tabs 2 tabs by 465.8 Federico mouth on day Mi, HERD TESTER - one followed 01/17 by 1 tab /2014 daily for the last 4 days Selenium 09/20 Hx Lotion 2.5% 1Bott topical 690.18 Mauro le 2x/week for Luiz Huber, - 2 wks, then Rosa,FACP 05/16 weekly needed Triamcinolone 12/06 Hx Cream 0.1% 30G apply bid 692.89 Mauro Cream /2012 prn Whitney Conte M.D.,FACP 12/06 Triamcinolone 12/06 Hx Cream 0.1% 30uni apply qd prn 692.89 Mauro Acetonide /2012 ts Whitney Conte M.D.,[facility] 09/20 Amoxicillin 05/30 Hx Tablets 500mg 28tab 2 tabs po 380.4 s bid for 7 D. Mayo, - days M.DCaleb,[facility] 09/29 Triamcinolone 12/22 Hx Cream 0.1% 30G apply bid 692.89 Mauro prn Whitney Conte M.D.,[facility] 10/[address] Co[address] Hx Tablets [address] 325mg 1 po qd Unknown Aspirin / - 09/[address] 1000mg 1 po qd Unknown / - 09/15 Multi Vitamin Hx Tablets 1 po qd Unknown / - 10/19 Lisinopril Hx Tablets 10mg 45tab take 08/16 s tablet by Luiz Huber, - mouth once M.[facility]aleb,[facility] 09/27 Immunizations CPT Code Status Date Vaccine Lot # [id number] Given 05/30/2012 Fluzone Vaccine [id number] Given 01/27/2012 Tdap - Tetanus/Diptheria/Acellular Pertussis [id number] Given 05/24/2011 Influenza Virus 3Yrs & Over Vital Signs Date Vital Result Comment 07/17/2018 4:08pm Height 71 inches 5'11" Weight [...] Date Facility Test Result H/L Range Note Inr/Protime [facility] Inr 1.29 High 0.77-1.[address] [place] [address] [phone] [facility] Partial Thrombo 39.2 High 26.0-36.3 finding [address] [place] [address] [phone] Inr/Protime [facility] Inr 1.18 High 0.77-1.[address] [place] [address] [phone] [facility] Partial Thrombo 38.4 High 26.0-36.3 finding [address] [place] [address] [phone] [facility] Triglycerides 58 mg/dL 1 (Trig/Chol/HDL) [address] [place] [address] [phone] Cholesterol 201 mg/dL 2 HDL Cholesterol 37.0 mg/dL 3 LDL Cholesterol 152 mg/dL 4 Comp Metabolic Panel 12/28/[address] [facility] Sodium 138 mmol/L Low 139-[address] [place] [address] [phone] Potassium 4.9 mmol/L N 3.5-5.0 Chloride 102 [...] Egfr Non- 85.1 >60 Egfr 109.5 >60 5 Laboratory test 12/28/[address] [facility] Vitamin B12 605 pg/mL N 180-914 [address] [place] [address] [phone] Laboratory test 07/11/[address] [facility] TSH (Thyroid 3.00 N 0.34 -5.[address] Stim Horm) mcIU/[place] [address] [phone] Free T4 (Free Thyroxine) 0.69 ng/dL N 0.61-1.12 T3 Total 1.05 ng/mL N 0.87-1.78 Vitamin B12 292 pg/mL N 180-435 7 Coagulation Factor X 119 % 70 - 150 8 CBC Auto 03/02/[address] [facility] White Blood 2.6 10^3/uL Low 3.5 -10.[address] [place] [address] [phone] Red Blood Count 4.29 10^6/uL N 4.0-5.4 [...] Cells % 0 N Laboratory test 03/02/[address] [facility] Vitamin B12 342 pg/mL N 180-701 [address] [place] [address] [phone] Ferritin 66.4 ng/mL N 24-336 Factor X Activity 99 % N 70 - 150 10 Heparin Anti Factor Xa 1.29 IU/mL N 11 Immunoglobulins 02/01/[address] [facility] Immunoglobulin G 1290 N 767 - 12 Serum Quant 101 [facility] mg/dL [address] [place] [address] [phone] Immunoglobulin M 31 mg/dL Abnormal 37 - 286 Immunoglobulin A 401 mg/dL Abnormal 61 - 356 Laboratory test 02/01/[address] [facility] C Reactive 28.14 mg/L High < 5.[address] [place] [address] [phone] Basic Metabolic 01/26/[address] [facility] Sodium 133 mmol/L N 133- [address] [place] [address] [phone] Potassium 4.6 mmol/L N 3.5-5.0 Chloride 100 mmol/L Low 101-111 Co2 Carbon Dioxide 27 mmol/L N 22-32 Anion Gap 6 mmol/L N 2-11 Glucose 96 mg/dL N 70-100 Blood Urea Nitrogen 22 mg/dL N 6-24 Creatinine 0.94 mg/dL N 0.67-1.17 BUN/Creatinine Ratio 23.4 High 8-20 Calcium 9.5 mg/dL N 8.6-10.3 Egfr Non- 89.8 N >60 Egfr 115.5 N >60 14 Laboratory test 01/26/[address] [facility] C Reactive 37.41 mg/L High < 5.00 15 finding 101 [facility] [place] [address] [phone] Erythrocyte Sed Rate 63 mm/Hr High 0-14 Blood Culture SEE RESULT BELOW 16 CBC Auto Diff 01/25/[address] [facility] White Blood 3.9 10^3/uL N 3.5-10.[address] [place] [address] [phone] Red Blood Count 4.48 10^6/uL N 4.0-5.4 [...] % 0.1 N CBC Auto Diff 01/18/[address] [facility] White Blood 6.6 10^3/uL N 3.5-10.[address] [place] [address] [phone] Red Blood Count 4.27 10^6/uL N 4.0-5.4 [...] Cells % 0 N Laboratory test 01/18/[address] [facility] C Reactive 76.79 mg/L High < 5.00 [address] [place] [address] [phone] Blood Culture SEE RESULT BELOW 18 Laboratory test 01/17/[address] [facility] Surgical SEE RESULT [address] [place] [address] [phone] CBC Auto Diff 11/22/[address] [facility] White Blood 3.8 10^3/uL N 3.5-[address] Count .8 [place] [address] [phone] Red Blood Count 4.60 10^6/uL N 4.0-5.4 [...] Cells % 0.1 N Laboratory test 11/01/2016 [facility] A Strep negative finding Lipid Profile 10/25/[address] [facility] Triglycerides 62 mg/dL N 20 (Trig/Chol/HDL) [address] [place] [address] [phone] Cholesterol 178 mg/dL N 21 HDL Cholesterol 39.3 mg/dL N 22 LDL Cholesterol 126 mg/dL N 23 Comp Metabolic Panel 10/25/[address] [facility] Sodium 135 mmol/L N 133-[address] [place] [address] [phone] Potassium 4.4 mmol/L N 3.5-5.0 Chloride 100 [...] 84.6 N >60 Egfr 108.8 N >60 24 CBC Auto 10/25/[address] [facility] White Blood 2.6 10^3/uL Low 3.5 -10.8 [address] [place] [address] [phone] Red Blood Count 4.83 10^6/uL N 4.0-5.4 [...] Cells % 0 N Laboratory test 10/25/[address] [facility] Creatine 97 U/L N 10- 223 [address] Kinase(CK) [place] [address] [phone] Creatinine 10/25/[address] [facility] Creatinine 1.00 High 0.51- 0.[address] mg/[place] [address] [phone] Urine Collection Time 24 N Urine Total Volume 1850 mL N Urine Random Creatinine 84.68 mg/dL N Creatinine Clearance 109 mL/min N 97-137 Microalbumin 24HR 10/25/[address] [facility] Urine Collection 24 N Urine [address] [place] [address] [phone] Urine Total Volume 1850 mL N Ur Microalbumin (mg/L) 30.8 mg/L N Urine Microalbumin (mg/24Hr) 57.0 mg/24hr High Less than 30 Urine Microalbumin (mcg/min) 39.6 mcg/min High Less than 20 Lyme Disease 10/25/[address] [facility] B burgdorferi Negative N Negative PCR [address] PCR, [place] [address] [phone] B mayonii PCR Negative N Negative B garinii/B afzelii PCR Negative N Negative Lyme Disease PCR Comment See Comment N 27 CBC Auto Diff 09/23/[address] [facility] White Blood 4.7 10^3/uL N 3.5-10.[address] [place] [address] [phone] Red Blood Count 4.98 10^6/uL N 4.0-5.4 [...] % 0.2 N Comp Metabolic Panel 09/23/[address] [facility] Sodium 134 mmol/L N 133-145 [address] [place] [address] [phone] Chloride 99 mmol/L Low 101-111 Co2 Carbon [...] 85.6 N >60 Egfr 110.1 N >60 28 Potassium 4.1 mmol/L N 3.5-5.0 Anion Gap 6 mmol/L N 2-11 Ast 19 U/L N 13-39 Lipid Profile 09/23/[address] [facility] Triglycerides 215 mg/dL N 29 (Trig/Chol/HDL) [address] [place] [address] [phone] Cholesterol 208 mg/dL N 30 HDL Cholesterol 33.5 mg/dL N 31 LDL Cholesterol 132 mg/dL N 32 Laboratory test 09/23/[address] [facility] Troponin-I 0.01 ng/mL N <0.04 [address] (TnI) [place] [address] [phone] Inr/Protime 09/23/[address] [facility] Inr 1.00 N 0.89-1.11 [address] [place] [address] [phone] Laboratory test 09/23/[address] [facility] Partial Thrombo 31.8 N 26.0-36.[address] [place] [address] [phone] Lactic Acid 0.8 mmol/L N 0.5-2.0 34 Type & Screen 09/23/[address] [facility] Patient Blood Type O Positive N [address] [place] [address] [phone] Antibody Screen NEGATIVE N Urinalysis Profile 09/23/[address] [facility] Urine Color Yellow N [address] [place] [address] [phone] Urine Appearance Clear N Urine Specific [place] 1.019 N 1.010-1.030 Urine pH 6.0 N [...] Casts Present Abnormal Absent Lipid Profile 11/24/[address] [facility] Triglycerides 107 mg/dL N 35 (Trig/Chol/HDL) [address] [place] [address] [phone] Cholesterol 194 mg/dL N 36 HDL Cholesterol 35.8 mg/dL N 37 LDL Cholesterol 137 mg/dL N 38 Basic Metabolic Panel 11/24/[address] [facility] Sodium 136 mmol/L N 133-145 [address] [place] [address] [phone] Potassium 4.8 mmol/L N 3.5-5.0 Chloride 101 mmol/L N 101-111 Co2 Carbon Dioxide 30 mmol/L N 22-32 Anion Gap 5 mmol/L N 2-11 Glucose 99 mg/dL N 70-100 Blood Urea Nitrogen 21 mg/dL N 6-24 Creatinine 0.98 mg/dL N 0.67-1.17 BUN/Creatinine Ratio 21.4 High 8-20 Calcium 9.7 mg/dL N 8.6-10.3 Egfr Non- 86.1 N >60 Egfr 110.7 N >60 39 Creatinine 11/24/[address] [facility] Creatinine 0.98 mg/dL High 0.51-0.[address] [place] [address] [phone] Urine Collection Time 24 N Urine Total Volume 950 mL N Urine Random Creatinine 161.12 mg/dL N Creatinine Clearance 108 mL/min N 97-137 Microalbumin 24HR 11/24/[address] [facility] Urine Collection [address] [place] [address] [phone] Urine Total Volume 950 mL N Ur Microalbumin (mg/L) 49.0 mg/L N Urine Microalbumin (mg/24Hr) 46.6 mg/24hr High Less than 30 Urine Microalbumin (mcg/min) 32.3 mcg/min High Less than 20 Urine Microalbumin 11/24/[address] [facility] Ur Microalbumin 168.0 mg/L N Random 101 (mg/L) [place] [address] [phone] Urine Creatinine 374.62 mg/dL N Urine Microalbumin/Creatinine 44.8 ug/mg High <31 Throat-Beta 12/09/[address] [facility] Throat Beta Strep (SEE NOTE) [address] [place] [address] [phone] Lipid Profile 09/07/[address] [facility] Triglycerides 74 mg/dL N 41, 42 (Trig/Chol/HDL) [address] [place] [address] [phone] Cholesterol 207 mg/dL N 43 HDL Cholesterol 40.9 mg/dL N 44 LDL Cholesterol 151 mg/dL N 45 Laboratory test 09/07/[address] [facility] Glucose 96 mg/dL N 70- [address] [place] [address] [phone] Basic Metabolic Panel 09/07/[address] [facility] Sodium 135 mmol/L N 133-[address] [place] [address] [phone] Potassium 4.6 mmol/L N 3.5-5.0 Chloride 99 mmol/L Low 101-111 Co2 Carbon Dioxide 29 mmol/L N 22-32 Anion Gap 7 mmol/L N 2-11 Blood Urea Nitrogen 23 mg/dL N 6-24 Creatinine 1.07 mg/dL N 0.67-1.17 BUN/Creatinine Ratio 21.5 High 8-20 Calcium 9.5 mg/dL N 8.6-10.3 Egfr Non- 78.2 N >60 Egfr 100.6 N >60 46 Microalbumin 24HR 09/07/[address] [facility] Ur Microalbumin 35.0 mg/ L N Urine [address] (mg/L) [place] [address] [phone] Urine Microalbumin (mg/24Hr) 35.0 mg/24hr High Less than 30 Urine Microalbumin (mcg/min) 24.3 mcg/min High Less than 20 Urine Collection Time 24 N Urine Total Volume 1000 mL N Creatinine 09/07/[address] [facility] Urine Random 170.36 mg/dL N Clearance [address] Creatinine [place], [place] [address] [phone] Creatinine 1.09 mg/dL High 0.51-0.95 Creatinine Clearance 109 mL/min N 97-137 Urine Collection Time 24 N Urine Total Volume 1000 mL N Total Protein 24HR 12/27/[address] [facility] Urine Random Total 15 mg/dL Urine [address] [place] [address] [phone] Urine Total Protein/24HR 210 mg/24Hr High 0-165 Urine Collection Time 24 Urine Total Volume 1400 mL Laboratory test 10/18/[address] [facility] TSH (Thyroid 2.31 0.34- 5.[address] Stimulating miu/[place] [address] Horm) [phone] Vitamin B12 439 pg/mL 180-914 Laboratory test 10/18/[address] [facility] Luly (Anti-Nuclear Negative Negative finding [address] AB) [place] [address] [phone] Iron & Iron 10/18/[address] [facility] Iron 73 g/dL 45-[address] [place] [address] [phone] Unsaturated Iron Binding 356 g/dL Total Iron Binding Capacity 429 g/dL 250-450 % Iron Saturation 17 % 15-55 Creatinine 10/23/[address] [facility] Creatinine Random 199.3 mg/dL [address] [place] [address] [phone] Creat Clearance 115 mL/min 80-125 Hours Of Collection 24 HR 24- Urine Volume Measurement 750 ML Total Protein 24HR 10/23/[address] [facility] Total Protein 38 mg/dL Urine [address] [place] [address] [phone] Urine Total Protein/24HR 285 MG/24HR High 50-100 Lipid Profile 10/23/[address] [facility] Triglyceride 78 mg/dL 40- 200 (Trig/Chol/HDL) [address] [place] [address] [phone] Cholesterol 191 mg/dL Less Than 200 48 High Density Lipoprotein 32 mg/dL Low 40-60 49 Cholesterol/HDL Ratio 5.97 AVERAGE High 1-4.97 Low Density Lipoprotein 143 mg/dL High Less Than 100 50 Basic Metabolic Panel 10/23/[address] [facility] Sodium 138 mmol/L 135-[address] [place] [address] [phone] Potassium 4.9 mmol/L 3.5-5.0 Chloride 101 mmol/L 101-111 Co2 (Carbon Dioxide) 29.0 mmol/L 22-32 Anion Gap 8.0 mmol/L 2-11 51 Glucose 94 mg/dL 70-100 BUN 16 mg/dL 6-24 Creatinine 0.9 mg/dL 0.50-1.40 One Over Creatinine 1.11 BUN/Creatinine Ratio 17.8 8-20 Calcium 9.2 mg/dL 8.1-9.9 eGFR Non- 97.2 > 60 eGFR 125.0 > 60 52 1 Desirable: <150 Borderline High: 150-199 High: 200-499 Very High: >500 2 Desirable: <200 Borderline High: 200-239 High: >239 3 Low: <40 Desirable: 40-60 High: >60 4 Desirable: <100 Near Optimal: 100-129 Borderline High: 130-159 High: 160-189 Very High: >189 5 Because ethnic data is not always readily [...] 15-29 5 Kidney failure <15 (or dialysis) 6 Normal Range 180 to 914 Indeterminate Range 145 to 180 Deficient Range <145 7 Normal Range 180 to 914 Indeterminate Range 145 to 180 Deficient Range <145 8 ADDITIONAL INFORMATION This test has been modified from the bakery machine mechanic's instructions. Its performance characteristics were determined by [facility] in a manner consistent with CLIA requirements. This test has not been cleared or approved by the U.S. Food and Drug Administration. Test Performed by: [facility] - [address] [address] 9 Normal Range 180 to 914 Indeterminate Range 145 to 180 Deficient Range <145 10 ADDITIONAL INFORMATION This test has been modified from the bakery machine mechanic's instructions. Its performance characteristics were determined by [facility] in a manner consistent with CLIA requirements. This test has not been cleared or approved by the U.S. Food and Drug Administration. Test Performed by: [facility] - [address] [address] 11 UFH therapeutic range: 0.30-0.70 IU/mL LMWH therapeutic range: 0.50-1.00 IU/mL 0.50-1.00 IU/mL for twice daily dosing 1.00-2.00 IU/mL for once daily dosing (sample obtained 4-6 hours following subcutaneous injection) LMWH prophylactic range:0.10-0.30 IU/mL ADDITIONAL INFORMATION Heparin Anti-Xa is used to measure heparin concentrations in patients receiving low molecular weight heparin (LMWH) or unfractionated heparin (UFH). Test Performed by: [facility] [address] 12 Test Performed by: [place] [address] 13 Acute inflammation: >10.00 14 Because ethnic data is not always readily [...] 15-29 5 Kidney failure <15 (or dialysis) 15 Acute inflammation: >10.00 16 SEE RESULT BELOW Name: ALDEN MAHONEY : [address]: Licha Barraza MD Acct: [id number] Unit: [id number] AGE: 36 Location: [place] [address] Re01/26/17 Dis: 01/28/17 SEX: M Status: DIS Kylie SPEC: [id number] YENNI: 01/26/17 [facility] DR: Licha Barraza MD REQ: [id number] RECD: 01/26/17 STATUS: GENESIS BERRY DR: Mauro Wells MD _ SOURCE: BLOOD,VENO SPDES: ORDERED: Blood Cult Procedure Result Reported Site Aerobic Culture Bottle Final 01/31/17- 1243 ML No Growth Day 5 Anaerobic Culture Bottle Final 01/31/17- 1243 ML No Growth Day 5 * ML - MAIN LAB ([facility]) . END OF REPORT * ML=Testing performed at Main Lab DEPARTMENT OF PATHOLOGY, [address] [place] [address] Kojo Hou M.D. Director [facility] # [id number] 17 Acute inflammation: >10.00 18 SEE RESULT BELOW Name: ALDEN MAHONEY : [address]: Boni Wells MD Acct: [id number] Unit: [id number] AGE: 36 Location: LAB Re01/18/17 SEX: M Status: REG REF SPEC: [id number] YENNI: 01/18/17-15[address] [facility] [address]: Boni Wells MD REQ: [id number] RECD: 01/18/17 STATUS: GENESIS BERRY DR: Mauro Huber MD _ SOURCE: BLOOD,VENO SPDESC: ORDERED: Blood Cult Procedure Result Reported Site Aerobic Culture Bottle Final 01/23/17- 1552 ML No Growth Day 5 Anaerobic Culture Bottle Final 01/23/17- 1552 ML No Growth Day 5 * ML - MAIN LAB ([facility]) . END OF REPORT * ML=Testing performed at Main Lab DEPARTMENT OF PATHOLOGY, [address] [place] [address] Kojo Hou M.D. Director [facility] # [id number] 19 SEE RESULT BELOW Name: ALDEN MAHONEY : [address]: Boni Wells MD Acct: [id number] Unit: [id number] AGE: 36 Location: [facility] Re01/17/17 SEX: M Status: REG REF SPEC: [id number] YENNI: 01/17/17-11[address] [facility] [address]: Boni Wells MD REQ: [id number] RECD: 01/17/17 STATUS: SOUT _ ORDERED: LEVEL 1 FINAL DIAGNOSIS Pacemaker generator, removal: Foreign body (pacemaker generator) (Gross diagnosis). PRE-OPERATIVE DIAGNOSIS AV block, pacemaker elective replacement indication GROSS DESCRIPTION The specimen is received fresh with no source identified and a requisition labeled, Pacemaker Generator, and consists of a 4.2 x 4.0 x 0.7 cm quinonez metallic medical supervisor. The following inscription is identified: [employer] [id number] [facility]. Per established hospital medical staff protocol, no tissue is submitted. Gross only. Signed (signature on file) Lore Sykes MD 01/29 0944 END OF REPORT * ML=Testing performed at Main Lab DEPARTMENT OF PATHOLOGY, [address] [place] [address] Kojo Hou M.D. Director [facility] # [id number] 20 Desirable <150 Borderline high 150-199 High 200-499 Very High >500 21 Desirable <200 Borderline high 200-239 High >239 22 Low <40 Desirable: 40-60 High: >60 23 Desirable: <100 mg/dL Near Optimal: 100-129 mg/dL Borderline High: 130-159 mg/dL High: 160-189 mg/dL Very High: >189 mg/dL 24 Because ethnic data is not always readily [...] 15-29 5 Kidney failure <15 (or dialysis) 25 Consistent with previous results on 09/25/16. 26 FASTING 10 HOUR 27 A negative result does not exclude infection with Borrelia burgdorferi. Serologic testing as per CDC guidelines may be indicated. ADDITIONAL INFORMATION This test was developed and its performance characteristics determined by [facility] in a manner consistent with CLIA requirements. This test has not been cleared or approved by the U.S. Food and Drug Administration. Test Performed by: [facility] - [address] [address] 28 Because ethnic data is not always readily [...] 15-29 5 Kidney failure <15 (or dialysis) 29 Desirable <150 Borderline high 150-199 High 200-499 Very High >500 30 Desirable <200 Borderline high 200-239 High >239 31 Low <40 Desirable: 40-60 High: >60 32 Desirable: <100 mg/dL Near Optimal: 100-129 mg/dL Borderline High: 130-159 mg/dL High: 160-189 mg/dL Very High: >189 mg/dL 33 99th percentile=0.04 ng/mL Troponin results at [facility] and [facility] are not interchangeable. [address] [facility] Severe Sepsis and Septic Shock Management Bundle Measure requires all lactic acids initially measuring >2.0 mmol/L be repeated. 35 Desirable <150 Borderline high 150-199 High 200-499 Very High >500 36 Desirable <200 Borderline high 200-239 High >239 37 Low <40 Desirable: 40-60 High: >60 38 Desirable: <100 mg/dL Near Optimal: 100-129 mg/dL Borderline High: 130-159 mg/dL High: 160-189 mg/dL Very High: >189 mg/dL 39 Because ethnic data is not always readily [...] 15-29 5 Kidney failure <15 (or dialysis) 40 RUN DATE: 12/12/[address] [facility] LAB LIVE PAGE 1 RUN TIME: [address] [place] [id number] Specimen Inquiry Name: ALDEN MAHONEY : [address]: Federico Walters MD Acct: [id number] Unit: [id number] AGE: 34 Location: [facility] Re12/09/14 SEX: M Status: DEP ER SPEC: [id number] YENNI: 12/09/14-2246 [facility] DR: Federico Walters MD REQ: [id number] RECD: 12/10/14 STATUS: GENESIS BERRY DR: Mauro Huber MD _ SOURCE: THROAT SPDESC: ORDERED: Throat Beta Str Procedure Result Verified Site Throat Beta Strep Culture Final 12/12/14- 08 ML Negative For Group A Beta Streptococcus * ML - MAIN LAB ([facility]) . END OF REPORT * ML=Testing performed at Main Lab DEPARTMENT OF PATHOLOGY, [address] [place] [address] Kojo Hou M.D. Director [facility] # [id number] 41 FASTING 10 HOUR 42 Desirable <150 Borderline high 150-199 High 200-499 Very High >500 43 Desirable <200 Borderline high 200-239 High >239 44 Low <40 Desirable: 40-60 High: >60 45 Desirable <100 Near Optimal 100-129 Borderline high 130-159 High 160-189 Very High >189 46 Because ethnic data is not always readily [...] 15-29 5 Kidney failure <15 (or dialysis) 47 FASTING PATIENT TOOK FISH OIL PILL AT 820 THIS MORNING. COLLECTED FROM 04/26 0900 THROUGH 10/23/11 0900. PATIENT TOOK FISH OIL PILL AT 820 THIS MORNING. 48 CHOLESTEROL INTERPRETATION: Desirable: Less than 200 MG/DL Borderline-High Risk: 200-239 MG/DL High-Risk: 240 MG/DL and over 49 HDL INTERPRETATION: Undesirable: High Risk: Less than 40 MG/DL Desirable: Low Risk: Greater than 60 MG/DL 50 LDL INTERPRETATION: Low Risk Optimal Level: LDL Less than 100 MG/DL Near or Above Optimal: LDL 100-129 MG/DL Borderline High Risk: LDL 130-159 MG/DL High Risk: LDL 160-189 MG/DL Very High Risk: LDL Greater than 189 MG/DL 51 Anion gap measurement may be of limited value in the presence of any alkalosis, especially in a combined acid base disorder. . 52 Because ethnic data is not always readily [...] dialysis) Procedures Date Code Description Status 01/20/2018 16975 Pace Maker Eval W/Iterative Adjustment Single Lead Completed 01/20/2018 11329 Pace Maker Eval W/Iterative Adjustment Single Lead Completed 11/04/2017 80063 EKG Tracing & Interpretation Completed 07/22/2017 67205 Pace Maker Eval W/Iterative Adjustment Single Lead Completed 07/22/2017 73196 Pace Maker Eval W/Iterative Adjustment Single Lead Completed 01/26/2017 49727 I&D Of Hematoma Completed 01/17/2017 20813 Removal Pacemaker W/Replacement Of Pacemaker Pulse Completed Generator 11/24/2016 16296 ECHO Transthoracic, Real-Time 2D With Doppler And Color Completed Flow 11/24/2016 30898 Interrogation Device Eval In Person W/ Completed Analysis,Single,Dual,Mul 11/04/2016 20257 Pace Maker Eval W/Iterative Adjustment Single Lead Completed 10/13/2016 63348 EKG Tracing & Interpretation Completed 09/24/2016 50805 EEG Recording Awake & Drowsy Completed 09/24/2016 53447 ECHO Transthorasic Realtime 2D W Doppler & Color Flow Hosp Completed 09/06/2016 68712 Interrogation Device Eval In Person W/ Completed Analysis,Single,Dual,Mul 07/07/2016 31314 Interrogation Device Eval In Person W/DR Completed Analysis,Single,Dual,Mul 05/21/2016 34521 EKG Tracing & Interpretation Completed 05/07/2016 03097 Pace Maker Eval W/Iterative Adjustment Single Lead Completed 10/21/2015 83636 Pace Maker Eval W/Iterative Adjustment Single Lead Completed 05/29/2015 73730 EKG Tracing & Interpretation Completed 04/30/2015 96086 Interrogation Device Eval In Person W/ Completed Analysis,Single,Dual,Mul 11/14/2014 49352 ECHO Transthoracic, Real-Time 2D With Doppler And Color Completed Flow 10/14/2014 74011 Pace Maker Eval W/Iterative Adjustment Single Lead Completed 04/10/2014 10356 Pace Maker Eval W/Iterative Adjustment Single Lead Completed 09/27/2013 75170 Interrogation Device Eval In Person W/ Completed Analysis,Single,Dual,Mul 03/28/2013 10695 Pace Maker Eval W/Iterative Adjustment Single Lead Completed 09/27/2012 77099 Pace Maker Eval W/Iterative Adjustment Single Lead Completed 09/19/2012 91570 ECHO Transthoracic, Real-Time 2D With Doppler And Color Completed Flow Encounters Type Date Location Provider Dx Diagnosis Office Visit 11/04/2017 [facility] Boni Dee I44.2 Atrioventricular block, 11:15a Of [place] Wells M.D. complete Z95.0 Presence of cardiac pacemaker I48.2 Chronic atrial fibrillation Office Visit 06/13/2017 [facility] Mary Dee Z79.01 group home ( current) 10:30a Armen Huber M.D.,FACP use of [address] anticoagulants L65.9 Nonscarring hair loss, unspecified R63.4 Abnormal weight loss Office Visit 04/29/2017 3:00p [facility] Edgar Dee Z95.0 Presence of [facility] [place] Wells M.D. cardiac pacemaker I48.2 Chronic atrial fibrillation Office Visit 02/11/2017 9:40a [facility] Mary Dee I97.638 Postproc Armen Huber M.D.,FACP hematoma of a [address] circ sys org fol other circ sys proc I48.2 Chronic atrial fibrillation [facility]97[facility]638 [facility] Infectious Rosa Colbert hematoma of a Diseases circ sys org fol other circ sys proc R79.82 Elevated C-reactive protein (CRP) Z86.19 Personal history of other infectious and parasitic diseases Office Visit 01/28/2017 10:27a [facility] Randolph Dee I97.638 Postproc Infectious Rosa Colbert hematoma of a Diseases circ sys org fol other circ sys proc R79.82 Elevated C-reactive protein (CRP) R50.9 Fever, unspecified Q24.6 Congenital heart block Office Visit 01/07/2017 11:00a [facility] Internal Mauro Dee Z00.01 Encounter for Armen Huber M.D.,[facility] general adult [address] medical exam w abnormal findings I42.9 Cardiomyopathy, unspecified I48.2 Chronic atrial fibrillation D64.89 Other specified anemias N18.1 Chronic kidney disease, stage 1 Office Visit 12/10/2016 2:30p [facility] Boni Dee Z95.0 Presence of Of [place] Wells M.D. cardiac pacemaker I44.2 Atrioventricular block, complete I48.2 Chronic atrial fibrillation Office Visit 12/08/2016 [facility] Internal Armen Dee I73.00 Raynaud' s 9:30a - [place] delvin Muse M.D.,[facility] gangrene Office Visit 11/10/2016 [facility] Federico Rivera, I63.9 Cerebral 11:00a Clinic MD infarction, unspecified I48.2 Chronic atrial fibrillation R27.0 Ataxia, unspecified Z86.73 Prsnl hx of TIA (TIA), and cereb infrc w/o resid deficits Office Visit 11/01/2016 [facility] Internal Jsoe Matthews, J00 Acute nasopharyngitis 10:40a Medicine - [place] [address] [common cold] Rd Office Visit 10/13/2016 [facility] Boni Dee I48.2 Chronic atrial 10:45a Cardiology Abhijeet Wells M.D. 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 Darcy I63.412 Cereb infrc Assoc,pc Nayeli, TYRONE due to Hospitalists embolism of left middle cerebral artery I48.2 Chronic atrial fibrillation I10 Essential (primary) hypertension G98.8 Other disorders of nervous system Office Visit 09/25/2016 [facility] Elana Gutiérrez I63.9 Cerebral 10:52a Clinic infarction, unspecified I48.91 Unspecified atrial fibrillation Office Visit 09/24/2016 [facility] Federico I63.9 Cerebral 10:46a Clinic MD Nicole infarction, unspecified I48.91 Unspecified atrial fibrillation Office Visit 09/24/2016 4:10p [facility] Jonathan I63.412 Cereb infrc Assoc,mami Lopez M.D. due to Hospitalists embolism of left middle cerebral artery I48.2 Chronic atrial fibrillation I10 Essential (primary) hypertension G98.8 Other disorders of nervous system Office Visit 09/23/2016 [facility] Federico I63.9 Cerebral 10:42a Clinic MD Nicole infarction, unspecified R29.711 Nihss score 11 I48.91 Unspecified atrial fibrillation Z79.82 group home (current) use of aspirin Office Visit 09/23/2016 [facility] Rihcard Root I63.412 Cereb infrc 4:10p Assoc,mami LINDSAY M.D. due to Hospitalists embolism of left middle cerebral artery I48.2 Chronic atrial fibrillation I10 Essential (primary) hypertension G98.8 Other disorders of nervous system Office Visit 05/21/2016 Lauro Dee I44.2 Atrioventricular 10:15a Cardiology Abhijeet Wells M.D. block, complete [employer] Z95.0 Presence of cardiac pacemaker I48.2 Chronic atrial fibrillation Office Visit 01/28/2016 [facility] Internal Mauro Dee L03.211 Cellulitis of face 8:50a [address], M.D.,FACP Office Visit 05/29/2015 Lauro Dee I44.2 Atrioventricular 10:00a Cardiology Abhijeet Wells M.D. block, complete [employer] I48.2 Chronic atrial fibrillation I42.9 Cardiomyopathy, unspecified Z95.0 Presence of cardiac pacemaker Office Visit 01/17/2015 2:40p [facility] Internal Mauro Dee 473.1 Sinusitis Chronic [facility] [address] Office Visit 12/11/2014 9:00a [facility] Internal Federico Mi, HERD TESTER 465.8 Upper Respiratory Medicine - Infections Acute [address] Other Multiple Sites 465.9 URI Upper Respiratory Infections Acute Unspec Sites Office Visit 05/16/2014 Lauro Dee 426.0 Atrioventricular Block 12:30p Cardiology Of [place] Wells Complete [facility] 427.31 Atrial Fibrillation Office Visit 09/20/2013 [facility] Internal Mauro Dee 690.18 Seborrheic 11:50a Armen [facility] M.D.,[facility] Dermatitis Other [place] Office Visit 05/03/2013 Lauro Dee 425.4 Cardiomyopathy 12:45p Cardiology Of [place] Wells Other Prim [facility] 426.0 Atrioventricular Block Complete Office Visit 10/18/2012 11:30a [facility] Internal Mauro Dee 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 Armen Huber M.D.,FACP Plantar Fascia [place] 704.00 Alopecia Unspec Office Visit 09/27/2012 Lauro Dee 426.0 Atrioventricular Block 3:15p Cardiology Of [place] Complete [facility] 425.4 Cardiomyopathy Other Prim Office Visit 05/30/2012 8:30a [facility] Internal Mauro Dee 380.4 Impacted Armen Huber M.D.,FACP Cerumen [place] V04.81 Need For Prophylactic Vaccination & Inoculation/Influenza Office Visit 01/27/2012 2:00p [facility] Internal Mauro Dee V70.0 Examination Armen Huber M.D.,FACP General Medical [place] Routine [facility] 427.31 Atrial Fibrillation 585.1 Chronic Kidney Disease Stage I v06.1 Ndrcusshzd-Isrztks-Dxgbhxzu Combined (DTaP) Office Visit 10/20/2011 10:10a [facility] Mary Dee 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 The office will contact you with your results. In the meantime I suggest you take Acetaminophen as needed.
--- NOTE | 2018-08-12 17:48 | UC ---
Throat Pain/Nasal Harish HPI - HPI Summary HPI Summary: 38-year-old male comes in with a chief complaint of sore throat for 1 day. Patient has a cardiac history and he wants to make sure he does not have strep or influenza. No fevers minimal rhinorrhea no cough or chest congestion. Swallowing makes the pain worse. - History of Current Complaint Stated Complaint: SORE THROAT Time Seen by Provider: 08/12/18 17:32 - Allergies/Home Medications Allergies/Adverse Reactions: Allergies Allergy/AdvReac Type Severity Reaction Status Date / Time No Known Allergies Allergy Verified 08/12/18 17:49 Home Medications: Home Medications Acetaminophen [Non-Aspirin Extra Strengt] 1,000 mg PO ONCE PRN 08/12/18 [ History Confirmed 08/12/18] Cholecalciferol CAP/TAB(NF) [Vitamin D3 CAP/TAB (NF)] 08/12/18 [History] Cyanocobalamin TAB* [Vitamin B12 TAB*] 08/12/18 [History] PMH/Surg Hx/FS Hx/Imm Hx Cardiovascular History: Cardiac Disease - Surgical History Surgical History: Yes Surgery Procedure, Year, and Place: PACEMAKER, PECTUSEXCAVATUM REPAIR, EYE SURGERY, muscle biopsy, wisdom teeth - Family History Known Family History: Positive: Hypertension - Social History Alcohol Use: None Alcohol Amount: 2 drinks per month Substance Use Type: None Smoking Status (MU): Never Smoked Tobacco - Immunization History Most Recent Influenza Vaccination: never Most Recent Tetanus Shot: within 10 years Most Recent Pneumonia Vaccination: never Review of Systems All Other Systems Reviewed And Are Negative: Yes Constitutional: Positive: Negative Skin: Positive: Negative Eyes: Positive: Negative ENT: Positive: Sore Throat, Nasal Discharge Respiratory: Positive: Negative Cardiovascular: Positive: Negative Gastrointestinal: Positive: Negative Motor: Positive: Negative Neurovascular: Positive: Negative Musculoskeletal: Positive: Negative Psychological: Positive: Negative Is Patient Immunocompromised?: No Physical Exam Triage Information Reviewed: Yes Appearance: Well-Appearing, No Pain Distress, Well-Nourished Vital Signs Reviewed: Yes Eye Exam: Normal Eyes: Positive: Conjunctiva Clear ENT: Positive: Pharyngeal erythema, Nasal congestion, Nasal drainage, TMs normal Neck exam: Normal Neck: Positive: Supple Respiratory: Positive: Lungs clear, Normal breath sounds, No respiratory distress Cardiovascular: Positive: RRR Musculoskeletal Exam: Normal Musculoskeletal: Positive: Strength Intact, ROM Intact Neurological Exam: Normal Neurological: Positive: Alert, Muscle Tone Normal Psychological Exam: Normal Psychological: Positive: Normal Response To Family, Age Appropriate Behavior Skin Exam: Normal Throat Pain/Nasal Course/Dx - Course Course Of Treatment: DISCUSSED VIRAL VERSES BACTERIAL INFECTION AND THE ROLE OF ANTIBIOTICS. THE PATIENT WISHES TO HAVE AN ANTIBIOTIC PRESCRIPTION AT THIS TIME. - Differential Dx/Diagnosis Provider Diagnosis: Pharyngitis Discharge - Sign-Out/Discharge Documenting (check all that apply): Patient Departure All imaging exams completed and their final reports reviewed: No Studies - Discharge Plan Condition: Stable Disposition: HOME Prescriptions: Amoxicillin/Clavulanate TAB* [Augmentin TAB 875*] 875 mg PO BID #20 tab Patient Education Materials: Pharyngitis (ED) Referrals: Mauro Huber MD [Primary Care Provider] - Additional Instructions: FOLLOW UP WITH YOUR DOCTOR IF NOT COMPLETELY IMPROVED. GET RECHECKED FOR ANY WORSENING OF YOUR CONDITION OR QUESTIONS OR CONCERNS. - Billing Disposition and Condition Condition: STABLE Disposition: Home
[2018-08-12 17:49] VITALS: BP 85/54
== END 2018-08-12 18:28 | disposition home or self-care (01) ==
LOC: UCEAST 17:29
DX: J02.9 Acute pharyngitis, unspecified (principal)
CPT/HCPCS: 87651; 99212; G0463

== ENCOUNTER 2018-09-12 22:52 | Emergency (ER) | payer MEDICARE, MEDICAID ==
--- OUTSIDE RECORDS SUMMARY | 2018-09-12 23:18 | XMS REPORT | Continuity of Care Document ---
:1980 External Reference #:[id number] Author Name Shyanne Breen Care Team Providers Name Role Phone Mauro Huber MD Primary Care Physician Unavailable Payers Type Date Identification Numbers Payment Provider Subscriber Effective: Policy Number: [id number] Medicare Alden Mahoney 2014 PayID: [id number] [address] [place] [address] Effective: 2014 Policy Number: [id number] Medicaid Alden Mahoney Group Name: 1 1 [address] PayID: [id number] [place] [address] Effective: 2010 Policy Number: [employer] Medicaid Alden Mahoney [id number] Expires: 2014 PayID: [id number] [address] [address] [place] [address] Advance Directives Description No Information Available Problems [...] MD Active Onset: 11/10/2016 Coordination problem Federico Rivear MD Active Onset: 10/20/2011 Proteinuria Mauro Huber, [...] Unknown Never Smoked Cigarettes Smoking Status Reviewed: 08/30/18 Never Smoked Cigarettes ETOH Use 01/07/2017 Rarely consumes alcohol Tobacco Use Start: Unknown Patient has never smoked Recreational Drug Use Denies Drug Use Exercise Type/Frequency Does not exercise Allergies, Adverse Reactions, Alerts Description No Known Drug Allergies Medications Medication Date Status Form Strength Qnty SIG Indications Ordering Provider Neomycin/Polymy 08/30 Active Solution 3.5-61819 10ml 2 drops in H60.8x2 Roxana jesse/Hydrocortis /2019 -1 affected ear mario Tai (Otic) twice a day for 5 days as needed Eliquis 06/06 Active Tablets 5mg 60tab 1 by mouth I63.412 s twice a day MD Abida Vitamin B 12 07/14 Active Lozenges 250mcg 100un by mouth its every day Luiz Huber M.D.,[facility] Lisinopril 09/27 Active Tablets 5mg 90tab 1 by mouth s every day Luiz Huber M.D.,[facility] Bystolic Active Tablets 2.5mg 90tab 1 tab by Mauro / s mouth every D. Mayo, ramón M.DCaleb,[facility] Probiotic Active Capsules 14cap 1 po qd Unknown /0000 s Vitamin D High Active Capsules 1000Unit 1 by mouth Unknown Potency /0000 every day Hydrocortisone- 08/16 Hx Solution 1-2% 10ml 5 drops in B37.84 Roxana Acetic Acid /2018 left ear Tai, - three times MD 08/30 a day for days Amoxicillin/Cla 07/19 Hx Tablets 875-125mg 14tab by mouth Mauro vulanate s twice a day Luiz Huber Potassium - Rosa,[facility] 07/26 Eliquis 06/27 Hx Tablets 2.5mg 60tab 1 tablet by I63.412 Mauro s mouth twice D. Mayo, - a day Rosa,[facility] 06/06 Clindamycin HCL 01/28 Hx Capsules 300mg 21cap 1 capsule Licha s three times [place], - daily for 7 M.D. 02/01 Cephalexin 01/28 Hx Capsules 500mg 20cap 1 by mouth Other s four times a Ordering - day for 5 Provider Cephalexin 01/17 Hx Capsules 500mg 9caps three times Boni a day for 3 D. Brand, - days M.D. 01/24 Aspirin Ec 09/[address] 325mg 60tab 1 tab daily, s discontinue Ordering - when you Provider 09/27 start Eliquis in 2-3 days Eliquis 09/27 Hx Tablets 5mg 60tab 1 by mouth I63.412 Mauro s twice a day Luiz Huber, - Rosa,[facility] 06/27 Lisinopril 09/27 Hx Tablets 2.5mg 30tab 1 by mouth Mauro s every day Luiz Huber, - (pt is M.Luiz,[facility] 09/27 currently taking 5mg) Atorvastatin 09/27 Hx Tablets 40mg 30tab 1 by mouth Other s every day Ordering - Provider 10/01 Doxycycline 06/13 Hx Capsules 100mg 12cap one tablet Other Hyclate /2015 s twice daily Ordering - for 6 days. Provider 01/31 Fluticasone 01/17 Hx Suspension 50mcg/Act 1bott 1 spray each 473.1 Gaetano Grayson le nostril in Luiz Huber, - in the M.D.,FACP 11/27 morning x3 wks then as needed Zyrtec Allergy 01/17 Hx Capsules 10mg 30cap as needed J32.1 Mauro /2014 s Whitney Conte M.D.,[facility] 11/27 Azithromycin 12/11 Hx Tablets 250mg 6tabs 2 tabs by 465.8 Federico /2014 mouth on day Mi, [employer] - one followed 01/17 by 1 tab /2014 daily for the last 4 days Selenium 09/20 Hx Lotion 2.5% 1Bott topical 690.18 Mauro le 2x/week for Luiz Huber, - 2 wks, then Rosa,[facility] 05/16 weekly if needed Triamcinolone 12/06 Hx Cream 0.1% 30G apply bid 692.89 Mauro Cream /2012 prn Whitney Conte M.D.,[facility] 12/06 Triamcinolone 12/06 Hx Cream 0.1% 30uni apply qd prn 692.89 Mauro Acetonide /2012 ts Whitney Conte M.D.,[facility] 09/20 Amoxicillin 05/30 Hx Tablets 500mg 28tab 2 tabs po 380.4 Mauro /2011 s bid for 7 D. Mayo, - days Prakash.DCaleb,[facility] 09/29 Triamcinolone 12/22 Hx Cream 0.1% 30G apply bid 692.89 Mauro Cream /2010 prn Whitney Conte M.D.,[facility] 10/19 Enteric Coated [address] 325mg 1 po qd Unknown Aspirin / - 09/[address] H[address] C[address] 1000mg 1 po qd Unknown / - 09/15 Multi Vitamin Hx Tablets 1 po qd Unknown / - 10/19 Lisinopril 00/00 Hx Tablets 10mg 45tab take 1/2 Mauro /0000 s tablet by Luiz Huber, - mouth once M.D.,FACP 09/27 Dextromethorpha 00/ Hx Tablets 20-400mg Unknown n-Guaifenesin /0000 - 08/30 Amoxicillin/Cla 0000 Hx Tablets 875-125mg take one Unknown vulanate /0000 tablet q12 Potassium - hours for 10 Immunizations CPT Code Status Date Vaccine Lot # [id number] Given 05/30/2012 Fluzone Vaccine [id number] Given 01/27/2012 Tdap - Tetanus/Diptheria/Acellular Pertussis [id number] Given 05/24/2011 Influenza Virus 3Yrs & Over Vital Signs Date Vital Result Comment 08/30/2018 1:53pm Height 71 inches 5'11" Weight 167.44 lb Heart Rate 64 /min BP Systolic 120 mmHg BP Diastolic 78 mmHg Body Temperature 97.4 F O2 % BldC Oximetry 94 % BMI (Body Mass Index) 23.4 kg/m2 08/16/2018 2:24pm Height 71 inches 5'11" Weight 166.50 lb Heart Rate 97 /min BP Systolic 120 mmHg BP Diastolic 70 mmHg Body Temperature 97.2 F O2 % BldC Oximetry 92 % BMI (Body Mass Index) 23.2 kg/m2 07/19/2018 11:45am Height 71 inches 5'11" Weight [...] Date Facility Test Result H/L Range Note Rapid Influenza 08/12/2018 [facility] Influenza A NEGATIVE Negative 1 A & B Molecular [address] [place] [address] [phone] Influenza B Molecular NEGATIVE Negative Laboratory test 08/12/2018 [facility] Rapid Strep Negative Negative [address] [place] [address] [phone] Laboratory test 07/17/2018 [facility] Lyme Disease Negative Negative [address] [place] [address] [phone] Tick-Borne Panel 07/17/2018 [facility] Babesia microti Negative Negative PCR Blood [address] [place] [address] [phone] Babesia ducani Negative Negative Babesia divergens/Mo-1 Negative Negative 4 Anaplasma phagocytophilum Negative Negative Ehrlichia chaffeensis Negative Negative Ehrlichia ewingii/canis Negative Negative Ehrlichia muris-like Negative Negative 5 B. miyamotoi PCR, B Negative Negative 6 Laboratory test 07/17/2018 [facility] Erythrocyte Sed 23 mm/Hr High 0-[address] [place] [address] [phone] C Reactive Protein 31.94 mg/L High <8.01 Blood Culture SEE RESULT BELOW 7 Inr/Protime 06/16/2018 [facility] Inr 1.29 High 0.77-1.[address] [place] [address] [phone] Laboratory test 06/16/2018 [facility] Partial 39.2 High 26.0- 36.[address] [place] [address] Time PTT [phone] Inr/Protime 05/12/2018 [facility] Inr 1.18 High 0.77-1.[address] [place] [address] [phone] Laboratory test 05/12/2018 [facility] Partial 38.4 High 26.0- 36.[address] [place] [address] Time PTT [phone] Laboratory test 12/28/2017 [facility] Vitamin B12 605 pg/mL N 180-914 8 finding [address] [place] [address] [phone] Comp Metabolic 12/28/2017 [facility] Sodium 138 mmol/L Low 139 -[address] [place] [address] [phone] Potassium 4.9 mmol/L N 3.5-5.0 Chloride 102 [...] Egfr Non- 85.1 >60 Egfr 109.5 >60 9 Lipid Profile 12/28/2017 [facility] Triglycerides 58 mg/dL 10 (Trig/Chol/HDL) [address] [place] [address] [phone] Cholesterol 201 mg/dL 11 HDL Cholesterol 37.0 mg/dL 12 LDL Cholesterol 152 mg/dL 13 Laboratory test 07/11/2017 [facility] TSH (Thyroid 3.00 mcIU/mL N 0.34-5.[address] Stim [place]) [place] [address] [phone] Free T4 (Free Thyroxine) 0.69 ng/dL N 0.61-1.12 T3 Total 1.05 ng/mL N 0.87-1.78 Vitamin B12 292 pg/mL N 180-914 14 Coagulation Factor X 119 % 70 - 150 15 CBC Auto 03/02/2017 [facility] White Blood 2.6 10^3/uL Low 3.5 -10.[address] [place] [address] [phone] Red Blood Count 4.29 10^6/uL N 4.0-5.4 [...] Cells % 0 N Laboratory test 03/02/2017 [facility] Vitamin B12 342 pg/mL N 180-914 16 finding [address] [employer] [place] [address] [phone] Ferritin 66.4 ng/mL N 24-336 Factor X Activity 99 % N 70 - 150 17 Heparin Anti Factor Xa 1.29 IU/mL N 18 Immunoglobulins 02/01/2017 [facility] Immunoglobulin G 1290 N 767 - 19 Serum Quant 101 [facility] mg/dL 1590 [place] [address] [phone] Immunoglobulin M 31 mg/dL Abnormal 37 - 286 Immunoglobulin A 401 mg/dL Abnormal 61 - 356 Laboratory test 02/01/2017 [facility] C Reactive 28.14 mg/L High < 5.00 20 finding [address] [place] [address] [phone] Basic Metabolic 01/26/2017 [facility] Sodium 133 mmol/L N 133- 145 Panel [address] [employer] [place] [address] [phone] Potassium 4.6 mmol/L N 3.5-5.0 Chloride 100 mmol/L Low 101-111 Co2 Carbon Dioxide 27 mmol/L N 22-32 Anion Gap 6 mmol/L N 2-11 Glucose 96 mg/dL N 70-100 Blood Urea Nitrogen 22 mg/dL N 6-24 Creatinine 0.94 mg/dL N 0.67-1.17 BUN/Creatinine Ratio 23.4 High 8-20 Calcium 9.5 mg/dL N 8.6-10.3 Egfr Non- 89.8 N >60 Egfr 115.5 N >60 21 Laboratory test 01/26/2017 [facility] C Reactive 37.41 mg/L High < 5.00 22 finding [address] [place] [address] [phone] Erythrocyte Sed Rate 63 mm/Hr High 0-14 Blood Culture SEE RESULT BELOW 23 CBC Auto Diff 01/25/2017 [facility] White Blood 3.9 10^3/uL N 3.5-10.[address] [place] [address] [phone] Red Blood Count 4.48 10^6/uL N 4.0-5.4 [...] % 0.1 N CBC Auto Diff 01/18/2017 [facility] White Blood 6.6 10^3/uL N 3.5-10.[address] [place] [address] [phone] Red Blood Count 4.27 10^6/uL N 4.0-5.4 [...] Cells % 0 N Laboratory test 01/18/2017 [facility] C Reactive 76.79 mg/L High < 5.00 [address] [place] [address] [phone] Blood Culture SEE RESULT BELOW 25 Laboratory test 01/17/2017 [facility] Surgical SEE RESULT [address] [place] [address] [phone] CBC Auto Diff 11/22/2016 [facility] White Blood 3.8 10^3/uL N 3.5-[address] Count .8 [place] [address] [phone] Red Blood Count 4.60 10^6/uL N 4.0-5.4 [...] Cells % 0.1 N Laboratory test 11/01/2016 [facility] Group A Strep negative finding Lipid Profile 10/25/2016 [facility] Triglycerides 62 mg/dL N 27 (Trig/Chol/HDL) [address] [place] [address] [phone] Cholesterol 178 mg/dL N 28 HDL Cholesterol 39.3 mg/dL N 29 LDL Cholesterol 126 mg/dL N 30 Comp Metabolic Panel 10/25/2016 [facility] Sodium 135 mmol/L N 133-[address] [place] [address] [phone] Potassium 4.4 mmol/L N 3.5-5.0 Chloride 100 [...] 84.6 N >60 Egfr 108.8 N >60 31 CBC Auto 10/25/2016 [facility] White Blood 2.6 10^3/uL Low 3.5 -10.8 [address] [place] [address] [phone] Red Blood Count 4.83 10^6/uL N 4.0-5.4 [...] Cells % 0 N Laboratory test 10/25/2016 [facility] Creatine 97 U/L N 10- 223 [address] Kinase(CK) [place] [address] [phone] Creatinine 10/25/2016 [facility] Creatinine 1.00 High 0.51- 0.[address] mg/[place] [address] [phone] Urine Collection Time 24 N Urine Total Volume 1850 mL N Urine Random Creatinine 84.68 mg/dL N Creatinine Clearance 109 mL/min N 97-137 Microalbumin 24HR 10/25/2016 [facility] Urine Collection 24 N Urine [address] [place] [address] [phone] Urine Total Volume 1850 mL N Ur Microalbumin (mg/L) 30.8 mg/L N Urine Microalbumin (mg/24Hr) 57.0 mg/24hr High Less than 30 Urine Microalbumin (mcg/min) 39.6 mcg/min High Less than 20 Lyme Disease 10/25/2016 [facility] B burgdorferi Negative N Negative PCR [address] PCR, [place] [address] [phone] B mayonii PCR Negative N Negative B garinii/B afzelii PCR Negative N Negative Lyme Disease PCR Comment See Comment N 34 CBC Auto Diff 09/23/2016 [facility] White Blood 4.7 10^3/uL N 3.5-10.[address] [place] [address] [phone] Red Blood Count 4.98 10^6/uL N 4.0-5.4 [...] % 0.2 N Comp Metabolic Panel 09/23/2016 [facility] Sodium 134 mmol/L N 133-[address] [place] [address] [phone] Chloride 99 mmol/L Low 101-111 Co2 Carbon [...] 85.6 N >60 Egfr 110.1 N >60 35 Potassium 4.1 mmol/L N 3.5-5.0 Anion Gap 6 mmol/L N 2-11 Ast 19 U/L N 13-39 Lipid Profile 09/23/2016 [facility] Triglycerides 215 mg/dL N 36 (Trig/Chol/HDL) [address] [place] [address] [phone] Cholesterol 208 mg/dL N 37 HDL Cholesterol 33.5 mg/dL N 38 LDL Cholesterol 132 mg/dL N 39 Laboratory test 09/23/2016 [facility] Troponin-I 0.01 ng/mL N <0.[address] (TnI) [place] [address] [phone] Inr/Protime 09/23/2016 [facility] Inr 1.00 N 0.89-1.[address] [place] [address] [phone] Laboratory test 09/23/2016 [facility] Partial Thrombo 31.8 N 26.0-36.[address] [place] [address] [phone] Lactic Acid 0.8 mmol/L N 0.5-2.0 41 Type & Screen 09/23/2016 [facility] Patient Blood Type O Positive [place] [address] [place] [address] [phone] Antibody Screen NEGATIVE N Urinalysis Profile 09/23/2016 [facility] Urine Color Yellow [place] [address] [place] [address] [phone] Urine Appearance Clear N Urine Specific Harper 1.019 N 1.010-1.030 Urine pH 6.0 N [...] Casts Present Abnormal Absent Lipid Profile 11/24/2015 [facility] Triglycerides 107 mg/dL N 42 (Trig/Chol/HDL) [address] [place] [address] [phone] Cholesterol 194 mg/dL N 43 HDL Cholesterol 35.8 mg/dL N 44 LDL Cholesterol 137 mg/dL N 45 Basic Metabolic Panel 11/24/2015 [facility] Sodium 136 mmol/L N 133-[address] [place] [address] [phone] Potassium 4.8 mmol/L N 3.5-5.0 Chloride 101 mmol/L N 101-111 Co2 Carbon Dioxide 30 mmol/L N 22-32 Anion Gap 5 mmol/L N 2-11 Glucose 99 mg/dL N 70-100 Blood Urea Nitrogen 21 mg/dL N 6-24 Creatinine 0.98 mg/dL N 0.67-1.17 BUN/Creatinine Ratio 21.4 High 8-20 Calcium 9.7 mg/dL N 8.6-10.3 Egfr Non- 86.1 N >60 Egfr 110.7 N >60 46 Creatinine 11/24/2015 [facility] Creatinine 0.98 mg/dL High 0.51-0.[address] [place] [address] [phone] Urine Collection Time 24 N Urine Total Volume 950 mL N Urine Random Creatinine 161.12 mg/dL N Creatinine Clearance 108 mL/min N 97-137 Microalbumin 24HR 11/24/2015 [facility] Urine Collection 24 N Urine [address] [place] [address] [phone] Urine Total Volume 950 mL N Ur Microalbumin (mg/L) 49.0 mg/L N Urine Microalbumin (mg/24Hr) 46.6 mg/24hr High Less than 30 Urine Microalbumin (mcg/min) 32.3 mcg/min High Less than 20 Urine Microalbumin 11/24/2015 [facility] Ur Microalbumin 168.0 mg/L N Random [address] (mg/L) [place] [address] [phone] Urine Creatinine 374.62 mg/dL N Urine Microalbumin/Creatinine 44.8 ug/mg High <31 Throat-Beta 12/09/2014 [facility] Throat Beta Strep (SEE NOTE) [address] [place] [address] [phone] Lipid Profile 09/07/2014 [facility] Triglycerides 74 mg/dL N 48, 49 (Trig/Chol/HDL) [address] [place] [address] [phone] Cholesterol 207 mg/dL N 50 HDL Cholesterol 40.9 mg/dL N 51 LDL Cholesterol 151 mg/dL N 52 Laboratory test 09/07/2014 [facility] Glucose 96 mg/dL N 70- [address] [place] [address] [phone] Basic Metabolic Panel 09/07/2014 [facility] Sodium 135 mmol/L N 133-[address] [place] [address] [phone] Potassium 4.6 mmol/L N 3.5-5.0 Chloride 99 mmol/L Low 101-111 Co2 Carbon Dioxide 29 mmol/L N 22-32 Anion Gap 7 mmol/L N 2-11 Blood Urea Nitrogen 23 mg/dL N 6-24 Creatinine 1.07 mg/dL N 0.67-1.17 BUN/Creatinine Ratio 21.5 High 8-20 Calcium 9.5 mg/dL N 8.6-10.3 Egfr Non- 78.2 N >60 Egfr 100.6 N >60 53 Microalbumin 24HR 09/07/2014 [facility] Ur Microalbumin 35.0 mg/ L N Urine [address] (mg/L) [place] [address] [phone] Urine Microalbumin (mg/24Hr) 35.0 mg/24hr High Less than 30 Urine Microalbumin (mcg/min) 24.3 mcg/min High Less than 20 Urine Collection Time 24 N Urine Total Volume 1000 mL N Creatinine 09/07/2014 [facility] Urine Random 170.36 mg/dL N Clearance [address] [place] [address] [phone] Creatinine 1.09 mg/dL High 0.51-0.95 Creatinine Clearance 109 mL/min N 97-137 Urine Collection Time 24 N Urine Total Volume 1000 mL N Total Protein 24HR 12/27/2012 [facility] Urine Random Total 15 mg/dL Urine [address] [place] [address] [phone] Urine Total Protein/24HR 210 mg/24Hr High 0-165 Urine Collection Time 24 Urine Total Volume 1400 mL Laboratory test 10/18/2012 [facility] TSH (Thyroid 2.31 0.34- 5.[address] Stimulating miu/[place] [address] Horm) [phone] Vitamin B12 439 pg/mL 180-914 Iron & Iron Binding 10/18/2012 [facility] Iron 73 g/dL 45- [address] [place], [place] [address] [phone] Unsaturated Iron Binding 356 g/dL Total Iron Binding Capacity 429 g/dL 250-450 % Iron Saturation 17 % 15-55 Laboratory 10/18/2012 [facility] Luly (Anti-Nuclear Negative Negative test finding [address] AB) [place] [address] [phone] Creatinine 10/23/2011 [facility] Creatinine Random 199.3 mg/dL 54 Clearance [address] [place] [address] [phone] Creat Clearance 115 mL/min 80-125 Hours Of Collection 24 HR 24- Urine Volume Measurement 750 ML Total Protein 24HR 10/23/2011 [facility] Total Protein 38 mg/dL Urine [address] [place] [address] [phone] Urine Total Protein/24HR 285 MG/24HR High 50-100 Lipid Profile 10/23/2011 [facility] Triglyceride 78 mg/dL 40- 200 (Trig/Chol/HDL) [address] [place] [address] [phone] Cholesterol 191 mg/dL Less Than 200 55 High Density Lipoprotein 32 mg/dL Low 40-60 56 Cholesterol/HDL Ratio 5.97 AVERAGE High 1-4.97 Low Density Lipoprotein 143 mg/dL High Less Than 100 57 Basic Metabolic Panel 10/23/2011 [facility] Sodium 138 mmol/L 135-[address] [place] [address] [phone] Potassium 4.9 mmol/L 3.5-5.0 Chloride 101 mmol/L 101-111 Co2 (Carbon Dioxide) 29.0 mmol/L 22-32 Anion Gap 8.0 mmol/L 2-11 58 Glucose 94 mg/dL 70-100 BUN 16 mg/dL 6-24 Creatinine 0.9 mg/dL 0.50-1.40 One Over Creatinine 1.11 BUN/Creatinine Ratio 17.8 8-20 Calcium 9.2 mg/dL 8.1-9.9 eGFR Non- 97.2 > 60 eGFR 125.0 > 60 59 1 Preparer: [id number] Preparer: [id number] No evidence of antibodies to B. burgdorferi detected. False negative results may occur in recently infected patients (<=2 weeks) due to low or undetectable antibody levels to B. burgdorferi. If recent exposure is suspected, a second sample should be collected and tested in 2-4 weeks. Test Performed by: [facility] [address] [place] [address] 4 ADDITIONAL INFORMATION This test was developed and its performance characteristics determined by [facility] in a manner consistent with CLIA requirements. This test has not been cleared or approved by the U.S. Food and Drug Administration. 5 ADDITIONAL INFORMATION This test was developed and its performance characteristics determined by [facility] in a manner consistent with CLIA requirements. This test has not been cleared or approved by the U.S. Food and Drug Administration. 6 ADDITIONAL INFORMATION This test was developed and its performance characteristics determined by [facility] in a manner consistent with CLIA requirements. This test has not been cleared or approved by the U.S. Food and Drug Administration. Test Performed by: [facility] [address] [place] [address] 7 SEE RESULT BELOW Name: ALDEN MAHONEY : [address]: Suzie Livingston NP Acct: [id number] Unit: [id number] AGE: 38 Location: [facility] Re07/17/18 SEX: M Status: REG REF SPEC: [id number] YENNI: 07/17/[address]: Suzie Livingston NP REQ: [id number] RECD: 07/17/18 STATUS: GENESIS BERRY DR: Mauro Huber MD _ SOURCE: BLOOD,VENO SPDESC: ORDERED: Blood Cult Procedure Result Reported Site Aerobic Culture Bottle Final 07/22/18- 4 ML No Growth Day 5 Anaerobic Culture Bottle Final 07/22/18- 1643 ML No Growth Day 5 * - [facility] . END OF REPORT DEPARTMENT OF PATHOLOGY, [address] [place] [address] Kojo Hou M.D. Director [facility] # [id number] Normal Range 180 to 914 Indeterminate Range 145 to 180 Deficient Range <145 9 Because ethnic data is not always readily [...] 15-29 5 Kidney failure <15 (or dialysis) 10 Desirable: <150 Borderline High: 150-199 High: 200-499 Very High: >500 11 Desirable: <200 Borderline High: 200-239 High: >239 12 Low: <40 Desirable: 40-60 High: >60 13 Desirable: <100 Near Optimal: 100-129 Borderline High: 130-159 High: 160-189 Very High: >189 14 Normal Range 180 to 914 Indeterminate Range 145 to 180 Deficient Range <145 15 ADDITIONAL INFORMATION This test has been modified from the narrow fabric loom fixer's instructions. Its performance characteristics were determined by [facility] in a manner consistent with CLIA requirements. This test has not been cleared or approved by the U.S. Food and Drug Administration. Test Performed by: [address] [address] 16 Normal Range 180 to 914 Indeterminate Range 145 to 180 Deficient Range <145 17 ADDITIONAL INFORMATION This test has been modified from the narrow fabric loom fixer's instructions. Its performance characteristics were determined by [facility] in a manner consistent with CLIA requirements. This test has not been cleared or approved by the U.S. Food and Drug Administration. Test Performed by: [place] [address] 18 UFH therapeutic range: 0.30-0.70 IU/mL LMWH therapeutic range: 0.50-1.00 IU/mL 0.50-1.00 IU/mL for twice daily dosing 1.00-2.00 IU/mL for once daily dosing (sample obtained 4-6 hours following subcutaneous injection) LMWH prophylactic range:0.10-0.30 IU/mL ADDITIONAL INFORMATION Heparin Anti-Xa is used to measure heparin concentrations in patients receiving low molecular weight heparin (LMWH) or unfractionated heparin (UFH). Test Performed by: [address] [address] Test Performed by: [address] [address] 20 Acute inflammation: >10.00 21 Because ethnic data is not always readily [...] 15-29 5 Kidney failure <15 (or dialysis) 22 Acute inflammation: >10.00 23 SEE RESULT BELOW Name: ALDEN MAHONEY : [address]: Licha Barraza MD Acct: [id number] Unit: [id number] AGE: 36 Location: [place] [address] Re01/26/17 Dis: 01/28/17 SEX: M Status: DIS Kylie SPEC: [id number] YENNI: 01/26/17-1230 [facility] DR: Licha Barraza MD REQ: [id number] RECD: 01/26/17-1243 STATUS: GENESIS BERRY DR: Mauro Wells MD _ SOURCE: BLOOD,VENO SPDESC: ORDERED: Blood Cult Procedure Result Reported Site Aerobic Culture Bottle Final 01/31/17- 1244 ML No Growth Day 5 Anaerobic Culture Bottle Final 01/31/17- 1244 ML No Growth Day 5 * ML - [facility] ([facility]) . END OF REPORT * ML=Testing performed at Main Lab DEPARTMENT OF PATHOLOGY, [address] [place] [address] Kojo Hou M.D. Director [facility] # [id number] 24 Acute inflammation: >10.00 25 SEE RESULT BELOW Name: ALDEN MAHONEY : [address]: Boni Wells MD Acct: [id number] Unit: [id number] AGE: 36 Location: LAB Re01/18/17 SEX: M Status: REG REF SPEC: [id number] YENNI: 01/18/[address]: Boni Wells MD REQ: [id number] RECD: 01/18/17 STATUS: GENESIS BERRY DR: Mauro Huber MD _ SOURCE: [facility]LO[facility] ORDERED: Blood Cult Procedure Result Reported Site Aerobic Culture Bottle Final 01/23/17- 1551 ML No Growth Day 5 Anaerobic Culture Bottle Final 01/23/17- 155 ML No Growth Day 5 * ML - MAIN LAB ([facility]) . END OF REPORT * ML=Testing performed at Main Lab DEPARTMENT OF PATHOLOGY, [address] [place] [address] Kojo Hou M.D. Director [facility] # [id number] 26 SEE RESULT BELOW Name: ALDEN MAHONEY : [address]: Boni Wells MD Acct: [id number] Unit: [id number] AGE: 36 Location: [facility] Re01/17/17 SEX: M Status: REG REF SPEC: [id number] YENNI: 01/17/17-[address]: Boni Wells MD REQ: [id number] RECD: 01/17/17-1236 STATUS: SOUT _ ORDERED: LEVEL 1 FINAL DIAGNOSIS Pacemaker generator, removal: Foreign body (pacemaker generator) (Gross diagnosis). PRE-OPERATIVE DIAGNOSIS AV block, pacemaker elective replacement indication GROSS DESCRIPTION The specimen is received fresh with no source identified and a requisition labeled, Pacemaker Generator, and consists of a 4.2 x 4.0 x 0.7 cm quinonez metallic medical staff physician. The following inscription is identified: Miiix Adapta [id number] [facility]. Per established hospital medical staff protocol, no tissue is submitted. Gross only. Signed (signature on file) Lore Sykes MD 01/29 0944 END OF REPORT * ML=Testing performed at Main Lab DEPARTMENT OF PATHOLOGY, [address] [place] [address] Kojo Hou M.D. Director [facility] # [id number] 27 Desirable <150 Borderline high 150-199 High 200-499 Very High >500 28 Desirable <200 Borderline high 200-239 High >239 29 Low <40 Desirable: 40-60 High: >60 30 Desirable: <100 mg/dL Near Optimal: 100-129 mg/dL Borderline High: 130-159 mg/dL High: 160-189 mg/dL Very High: >189 mg/dL 31 Because ethnic data is not always readily [...] 15-29 5 Kidney failure <15 (or dialysis) 32 Consistent with previous results on 09/25/16. 33 FASTING 10 HOUR 34 A negative result does not exclude infection with Borrelia burgdorferi. Serologic testing as per CDC guidelines may be indicated. ADDITIONAL INFORMATION This test was developed and its performance characteristics determined by [facility] in a manner consistent with CLIA requirements. This test has not been cleared or approved by the U.S. Food and Drug Administration. Test Performed by: [facility] [address] [place] [address] 35 Because ethnic data is not always readily [...] 15-29 5 Kidney failure <15 (or dialysis) 36 Desirable <150 Borderline high 150-199 High 200-499 Very High >500 37 Desirable <200 Borderline high 200-239 High >239 38 Low <40 Desirable: 40-60 High: >60 39 Desirable: <100 mg/dL Near Optimal: 100-129 mg/dL Borderline High: 130-159 mg/dL High: 160-189 mg/dL Very High: >189 mg/dL 40 99th percentile=0.04 ng/mL Troponin results at [facility] and [facility] are not interchangeable. 41 [facility] Severe Sepsis and Septic Shock Management Bundle Measure requires all lactic acids initially measuring >2.0 mmol/L be repeated. 42 Desirable <150 Borderline high 150-199 High 200-499 Very High >500 43 Desirable <200 Borderline high 200-239 High >239 44 Low <40 Desirable: 40-60 High: >60 45 Desirable: <100 mg/dL Near Optimal: 100-129 mg/dL Borderline High: 130-159 mg/dL High: 160-189 mg/dL Very High: >189 mg/dL 46 Because ethnic data is not always [...] 5 Kidney failure <15 (or dialysis) 47 RUN DATE: 12/12/14 [facility] LAB LIVE PAGE 1 RUN TIME: [address] [place] [address] Specimen Inquiry Name: ALDEN MAHONEY : [address]: Federico Walters MD Acct: [id number] Unit: [id number] AGE: 34 Location: [facility] Re12/09/14 SEX: M Status: DEP ER SPEC: [id number] YENNI: 12/09/14-2246 [facility] DR: Federico Walters MD REQ: [id number] RECD: 12/10/14-1058 STATUS: COMP JAMAL DR: Mauro Huber MD _ SOURCE: THROAT SPDESC: ORDERED: Throat Beta Str Procedure Result Verified Site Throat Beta Strep Culture Final 12/12/14- 851 ML Negative For Group A Beta Streptococcus * ML - MAIN LAB ([facility]) . END OF REPORT * ML=Testing performed at Main Lab DEPARTMENT OF PATHOLOGY, [address] [place] [address] Kojo Hou M.D. Director [facility] # [id number] 48 FASTING 10 HOUR 49 Desirable <150 Borderline high 150-199 High 200-499 Very High >500 50 Desirable <200 Borderline high 200-239 High >239 51 Low <40 Desirable: 40-60 High: >60 52 Desirable <100 Near Optimal 100-129 Borderline high 130-159 High 160-189 Very High >189 53 Because ethnic data is not always readily [...] 15-29 5 Kidney failure <15 (or dialysis) 54 FASTING PATIENT TOOK FISH OIL PILL AT 820 THIS MORNING. COLLECTED FROM 04/26 0900 THROUGH 10/23/11 0900. PATIENT TOOK FISH OIL PILL AT 820 THIS MORNING. 55 CHOLESTEROL INTERPRETATION: Desirable: Less than 200 MG/DL Borderline-High Risk: 200-239 MG/DL High-Risk: 240 MG/DL and over 56 HDL INTERPRETATION: Undesirable: High Risk: Less than 40 MG/DL Desirable: Low Risk: Greater than 60 MG/DL 57 LDL INTERPRETATION: Low Risk Optimal Level: LDL Less than 100 MG/DL Near or Above Optimal: LDL 100-129 MG/DL Borderline High Risk: LDL 130-159 MG/DL High Risk: LDL 160-189 MG/DL Very High Risk: LDL Greater than 189 MG/DL 58 Anion gap measurement may be of limited value in the presence of any alkalosis, especially in a combined acid base disorder. . 59 Because ethnic data is not always readily [...] (or dialysis) Procedures Date Code Description Status 08/24/2018 75260 Pace Maker Eval W/Iterative Adjustment Single Lead Completed 08/24/2018 83829 Pace Maker Eval W/Iterative Adjustment Single Lead Completed 01/20/2018 10512 Pace Maker Eval W/Iterative Adjustment Single Lead Completed 01/20/2018 94967 Pace Maker Eval W/Iterative Adjustment Single Lead Completed 11/04/2017 05343 EKG Tracing & Interpretation Completed 07/22/2017 26465 Pace Maker Eval W/Iterative Adjustment Single Lead Completed 07/22/2017 49216 Pace Maker Eval W/Iterative Adjustment Single Lead Completed 01/26/2017 92792 I&D Of Hematoma Completed 01/17/2017 12554 Removal Pacemaker W/Replacement Of Pacemaker Pulse Completed Generator 11/24/2016 26064 ECHO Transthoracic, Real-Time 2D With Doppler And Color Completed Flow 11/24/2016 79493 Interrogation Device Eval In Person W/DR Completed Analysis,Single,Dual,Mul 11/04/2016 65525 Pace Maker Eval W/Iterative Adjustment Single Lead Completed 10/13/2016 54162 EKG Tracing & Interpretation Completed 09/24/2016 45534 ECHO Transthorasic Realtime 2D W Doppler & Color Flow Hosp Completed 09/24/2016 36201 EEG Recording Awake & Drowsy Completed 09/06/2016 74058 Interrogation Device Eval In Person W/DR Completed Analysis,Single,Dual,Mul 07/07/2016 15483 Interrogation Device Eval In Person W/DR Completed Analysis,Single,Dual,Mul 05/21/2016 05263 EKG Tracing & Interpretation Completed 05/07/2016 11575 Pace Maker Eval W/Iterative Adjustment Single Lead Completed 10/21/2015 87659 Pace Maker Eval W/Iterative Adjustment Single Lead Completed 05/29/2015 03661 EKG Tracing & Interpretation Completed 04/30/2015 25667 Interrogation Device Eval In Person W/DR Completed Analysis,Single,Dual,Mul 11/14/2014 53486 ECHO Transthoracic, Real-Time 2D With Doppler And Color Completed Flow 10/14/2014 89151 Pace Maker Eval W/Iterative Adjustment Single Lead Completed 04/10/2014 03446 Pace Maker Eval W/Iterative Adjustment Single Lead Completed 09/27/2013 21224 Interrogation Device Eval In Person W/DR Completed Analysis,Single,Dual,Mul 03/28/2013 63701 Pace Maker Eval W/Iterative Adjustment Single Lead Completed 09/27/2012 24246 Pace Maker Eval W/Iterative Adjustment Single Lead Completed 09/19/2012 26170 ECHO Transthoracic, Real-Time 2D With Doppler And Color Completed Flow Encounters Type Date Location Provider Dx Diagnosis Office Visit 08/16/2018 [facility] Internal Roxana Tai MD J02.9 Acute pharyngitis, 2:40p Medicine - [address] B37.84 Candidal otitis externa Office Visit 07/19/2018 [facility] Internal Mauro Dee H66.92 Otitis media, 11:20a Armen Huber, unspecified, left ear [place] Shaun Lee,FACP Office Visit 07/17/2018 [facility] Internal Suzie Livingston, R53.81 Other malaise 3:40p Armen Olson NGemini [place] Office Visit 11/04/2017 [place] I44.2 Atrioventricular 11:15a Cardiology Of Rosa Wells block, complete [facility] Z95.0 Presence of cardiac pacemaker I48.2 Chronic atrial fibrillation Office Visit 06/13/2017 [facility] Internal Mauro Dee 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 cardiac pacemaker I48.2 Chronic atrial fibrillation Office Visit 02/11/2017 9:40a [facility] Mary Dee I97.638 Postproc Armen Huber M.D.,FACP hematoma of a [address] circ sys org fol other circ sys proc I48.2 Chronic atrial fibrillation Office Visit 02/01/2017 11:30a [place] Adam Dee I97.638 Postproc Infectious Rosa Colbert hematoma of a Diseases circ sys org fol other circ sys proc R79.82 Elevated C-reactive protein (CRP) Z86.19 Personal history of other infectious and parasitic diseases Office Visit 01/28/2017 10:27a [place] Adam Dee I97.638 Postproc Infectious Rosa Colbert hematoma of a Diseases circ sys org fol other circ sys proc R79.82 Elevated C-reactive protein (CRP) R50.9 Fever, unspecified Q24.6 Congenital heart block Office Visit 01/07/2017 11:00a [facility] Internal Mauro Dee Z00.01 Encounter for Armen Huber M.D.,FACP general adult [address] medical exam w abnormal findings I42.9 Cardiomyopathy, unspecified I48.2 Chronic atrial fibrillation D64.89 Other specified anemias N18.1 Chronic kidney disease, stage 1 Office Visit 12/10/2016 2:30p [facility] Boni Dee Z95.0 Presence of Of [place] Wells M.D. cardiac pacemaker I44.2 Atrioventricular block, complete I48.2 Chronic atrial fibrillation Office Visit 12/08/2016 [facility] Internal Medicine Mauro Dee I73.00 Raynaud' s 9:30a - [address] [place], syndrome without Rosa,FACP gangrene Office Visit 11/10/2016 Neurohospitalist Federico Rivera, I63.9 Cerebral 11:00a Clinic infarction, unspecified I48.2 Chronic atrial fibrillation R27.0 Ataxia, unspecified Z86.73 Prsnl hx of TIA (TIA), and cereb infrc w/o resid deficits Office Visit 11/01/2016 [facility] Internal Jose Matthews, J00 Acute nasopharyngitis 10:40a Medicine - [place] BOOKKEEPING MANAGER [common cold] Rd Office Visit 10/13/2016 [place] Bon[place] Dee I48.2 Chronic atrial 10:45a Cardiology Of Rosa Wells fibrillation [facility] Z95.0 Presence of cardiac pacemaker I63.9 Cerebral infarction, unspecified Office Visit 09/27/2016 3:00p [facility] Internal Mauro Dee 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.,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 E78.1 Pure hyperglyceridemia I48.2 Chronic atrial fibrillation I42.9 Cardiomyopathy, unspecified Office Visit 09/25/2016 [facility]hospitalist Elana Gutiérrez, I63.9 Cerebral 10:52a Clinic infarction, unspecified I48.91 Unspecified atrial fibrillation Office Visit 09/25/2016 4:11p [facility] I63.412 Cereb infrc Assoc,mami Tyler NP due to Hospitalists embolism of left middle cerebral artery I48.2 Chronic atrial fibrillation I10 Essential (primary) hypertension G98.8 Other disorders of nervous system Office Visit 09/24/2016 Neurohospitalist Federico I63.9 Cerebral 10:46a Clinic MD Nicole infarction, unspecified I48.91 Unspecified atrial fibrillation Office Visit 09/24/2016 4:10p [facility] Jonathan I63.412 Cereb infrc Assoc,mami Lopez M.D. due to Hospitalists embolism of left middle cerebral artery I48.2 Chronic atrial fibrillation I10 Essential (primary) hypertension G98.8 Other disorders of nervous system Office Visit 09/23/2016 Neurohospitalist Federico I63.9 Cerebral 10:42a Clinic MD Nicole infarction, unspecified R29.711 Nihss score 11 I48.91 Unspecified atrial fibrillation Z79.82 intermediate (current) use of aspirin Office Visit 09/23/2016 [facility] Richardadam Root I63.412 Cereb infrc 4:10p Assoc,mami LINDSAY M.D. due to Hospitalists embolism of left middle cerebral artery I48.2 Chronic atrial fibrillation I10 Essential (primary) hypertension G98.8 Other disorders of nervous system Office Visit 05/21/2016 La[place] Dee I44.2 Atrioventricular 10:15a Cardiology Abhijeet Wells M.D. block, complete [facility] Z95.0 Presence of cardiac pacemaker I48.2 Chronic atrial fibrillation Office Visit 01/28/2016 [facility] Internal Mauro Dee L03.211 Cellulitis of face 8:50a [address], M.D.,FACP Office Visit 05/29/2015 [place] I44.2 Atrioventricular 10:00a Cardiology Abhijeet Wells M.D. block, complete [facility] I48.2 Chronic atrial fibrillation I42.9 Cardiomyopathy, unspecified Z95.0 Presence of cardiac pacemaker Office Visit 01/17/2015 2:40p [facility] Internal Mauro Dee 473.1 Sinusitis Chronic Armen Huber M.D.,FACP Frontal [address] Office Visit 12/11/2014 9:00a [facility] Internal Federico Mi NP 465.8 Upper Respiratory Medicine - Infections Acute [address] Other Multiple Sites 465.9 URI Upper Respiratory Infections Acute Unspec Sites Office Visit 05/16/2014 [place] Boni Dee 426.0 Atrioventricular Block 12:30p Cardiology Abhijeet Wells M.D. Complete [facility] 427.31 Atrial Fibrillation Office Visit 09/20/2013 [facility] Mary Dee 690.18 Seborrheic 11:50a [facility].,[facility] Dermatitis Other [place] Office Visit 05/03/2013 [facility] Boni Dee 425.4 Cardiomyopathy 12:45p Cardiology Abhijeet Wells M.D. Other Prim [facility] 426.0 Atrioventricular Block Complete Office Visit 10/18/2012 11:30a [place] Dee 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 Armen Huber M.D.,[facility] Plantar Fascia [place] 704.00 Alopecia Unspec Office Visit 09/27/2012 [place] Dee 426.0 Atrioventricular Block 3:15p Cardiology Abhijeet Wells M.D. Complete [facility] 425.4 Cardiomyopathy Other Prim Office Visit 05/30/2012 8:30a [place] Dee 380.4 Impacted Armen Huber M.D.,FACP Cerumen [place] V04.81 Need For Prophylactic Vaccination & Inoculation/Influenza Office Visit 01/27/2012 2:00p [facility] Mary Dee V70.0 Examination Armen [facility] M.D[facility] [place] Routine [facility] 427.31 Atrial Fibrillation 585.1 Chronic Kidney Disease Stage I v06.1 Yklntnvtka-Mudswbw-Dltfecmm Combined (DTaP) Office Visit 10/20/2011 10:10a [place] Dee 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.,[facility] Dystrophy [place] Pigmentary V48.5 Sensory Problem Head & Trunk 427.31 Atrial Fibrillation 272.2 Hyperlipidemia Mixed 791.0 Proteinuria Office Visit 12/22/2010 2:00p DO Not Use [place] Dee 427.31 Atrial AT Shayna Huber M.D.,[facility] Fibrillation 378.73 Strabismus In Other Neuromuscular Disorders 692.89 Dermatitis Due To Spec Agents Other 272.2 Hyperlipidemia Mixed Plan of Treatment Future Appointment(s):12/25/2018 1:00 pm - Roxana Tai MD at [facility]idential [facility] Internal Medicine - [address]08/30/2018 - Roxana Tai MDH60.8x2 Other otitis externa, left earNew Medication:Neomycin/Polymyxin/Hydrocortisone (Otic) 3.5-68198-6 - 2 drops in affected ear twice a day for 5 days as neededFollow up:as ubnlhdF16.2 Chronic atrial fibrillation
--- OUTSIDE RECORDS SUMMARY | 2018-09-12 23:18 | XMS REPORT | Continuity of Care Document ---
:1980 External Reference #:[id number] Author Name Mary Valadez Care Team Providers Name Role Phone Roxana Tai MD Primary Care Physician Unavailable Payers Type Date Identification Numbers Payment Provider Subscriber Policy Number: [id number] Medicare - NGS Alden York PayID: [id number] [address] [place] [address] Policy Number: [id number] Medicaid Alden Dougherty Jaylen PayID: [id number] [address] [place] [address] Advance Directives Description No Information Available Problems Date Description Provider Status Onset: Atrial fibrillation Active Onset: Cardiac pacemaker in situ Active Onset: Poor balance Active Onset: 06/24/2015 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 Active Onset: 06/28/2017 Alternating exotropia Moris Marroquin M.D. Active Family History Date Family Member(s) Problem(s) Comments Father No Current Problems Mother No Current Problems Social History Type Date Description Comments Sex Unknown Marital Status Single Work Status Disabled ETOH Use Denies alcohol use Tobacco Use Start: Unknown Patient has never smoked Recreational Drug Use Denies Drug Use Smoking Status Reviewed: 09/11/18 Patient has never smoked Allergies, Adverse Reactions, Alerts Description No Known Drug Allergies Medications Medication Date Status Form Strength Qnty SIG Indications Ordering Provider Bystolic Active Tablets 2.5mg take 1 Unknown 0 tablet once daily Lisinopril Active Tablets 10mg take 1/2 Unknown 0 tablet once daily Probiotic Active Capsules Unknown 0 Eliquis Active Tablets 2.5mg Gaetano Huber M.D. Fish Oil Hx Capsules 1000mg 1 by mouth Moris Tsai - every day Rosa Marroquin 7 Aspirin Hx Tablets 325mg Unknown 0 - 7 Immunizations Description No Information Available Vital Signs Description No Information Available Results Description No Information Available Procedures Date Code Description Status 06/29/2018 59050 Fundus Photography With Interpretation And Report Completed 06/29/2018 19181 Est Patient Comprehensive Exam Completed 06/28/2017 64876 Est Patient Comprehensive Exam Completed 06/25/2016 81357 Fundus Photography With Interpretation And Report Completed 06/25/2016 54034 Est Patient Comprehensive Exam Completed 06/24/2015 08951 Fundus Photography With Interpretation And Report Completed 06/24/2015 93064 Est Patient Comprehensive Exam Completed 05/20/2014 71686 Fundus Photography With Interpretation And Report Completed 05/20/2014 21381 Determination Of Refractive State Completed 05/20/2014 19325 Est Patient Comprehensive Exam Completed 12/08/2011 20396 Est Patient Intermediate Exam Completed 12/29/2010 90881 Fundus Photography With Interpretation And Report Completed 12/29/2010 68156 Determination Of Refractive State Completed 12/29/2010 59618 Est Patient Comprehensive Exam Completed Encounters Description No Information Available Plan of Treatment Future Appointment(s):06/29/2019 12:00 pm - Moris Marroquin M.D. at [facility]
--- OUTSIDE RECORDS SUMMARY | 2018-09-12 23:19 | XMS REPORT | Continuity of Care Document ---
:1980 External Reference #:[id number] Author Name Shyanne Breen Care Team Providers Name Role Phone Mauro Huber MD Primary Care Physician Unavailable Payers Type Date Identification Numbers Payment Provider Subscriber Effective: Policy Number: [id number] Medicare Alden Mahoney 2014 PayID: [id number] [address] [place] [address] Effective: 2014 Policy Number: [id number] Medicaid Alden Mahoney Group Name: 1 1 [address] PayID: [id number] [place] [address] Effective: 2010 Policy Number: [employer] Medicaid Alden Mahoney [id number] Expires: 2014 PayID: [id number] [address] [address] [place] [address] Advance Directives Description No Information Available Problems [...] Member(s) Problem(s) Comments Onset: (age 48 Father UT Years) Father Kidney Stones Mother Alive And [...] Unknown Never Smoked Cigarettes Smoking Status Reviewed: 08/16/18 Never Smoked Cigarettes ETOH Use 01/07/2017 Rarely consumes alcohol Tobacco Use Start: Unknown Patient has never smoked Recreational Drug Use Denies Drug Use Exercise Type/Frequency Does not exercise Allergies, Adverse Reactions, Alerts Description No Known Drug Allergies Medications Medication Date Status Form Strength Qnty SIG Indications Ordering Provider Hydrocortisone- 08/16 Active Solution 1-2% 10ml 5 drops in B37.84 Roxana Acetic Acid /2018 left ear Tai, three times MD a day for 7 days Eliquis 06/06 Active Tablets 5mg 1 by mouth I63.412 twice a day Luiz Huber M.D.,AKI Vitamin B 12 07/14 Active Lozenges 250mcg 100un by mouth its every day Luiz Huber M.D.,AKI Lisinopril 09/27 Active Tablets 5mg 90tab 1 by mouth s every day Luiz Huber M.D.,AKI Bystolic Active Tablets 2.5mg 90tab 1 tab by Mauro / s mouth every D. Mayo, ramón M.D.,[facility] Probiotic Active Capsules 14cap 1 po qd Unknown /0000 s Vitamin D High Active Capsules 1000Unit 1 by mouth Unknown Potency /0000 every day Dextromethorpha Active Tablets 20-400mg Unknown n-Guaifenesin Amoxicillin/Cla Active Tablets 875-125mg take one Unknown vulanate tablet q12 Potassium hours for 10 days Amoxicillin/Cla 07/19 Hx Tablets 875-125mg 14tab by mouth Mauro [facility] s twice a day Luiz Huber Potassium - M.DCaleb,[facility] 07/26 Eliquis 06/27 Hx Tablets 2.5mg 60tab 1 tablet by I63.412 Mauro s mouth twice D. Mayo, - a day M.DCaleb,[facility] 06/06 Clindamycin HCL 01/28 Hx Capsules 300mg 21cap 1 capsule Licha s three times Morrill, - daily for 7 M.D. 02/01 Cephalexin [...] s twice a day Luiz Huber, - Rosa,[facility] 06/27 Lisinopril 09/27 Hx Tablets 2.5mg 30tab 1 by mouth Mauro s every day Luiz Huber, - (pt is M.DCaleb,[facility] 09/27 taking 5mg) Atorvastatin 09/27 Hx Tablets 40mg 30tab 1 by mouth Other s every day Ordering - Provider 10/01 Doxycycline 01/25 Hx Capsules 100mg 12cap one tablet Other Hyclate /2015 s twice daily Ordering - for 6 days. Provider 01/31 Fluticasone 01/17 Hx Suspension 50mcg/Act 1bott 1 spray each 473.1 Gaetano Grayson le nostril in Luiz Huber, - in the M.DCaleb,FACP 11/27 morning x3 wks then as needed Zyrtec Allergy 01/17 Hx Capsules 10mg 30cap as needed J32.1 Mauro /2014 s Whitney Conte M.D.,[facility] 11/27 Azithromycin 12/11 Hx Tablets 250mg 6tabs 2 tabs by 465.8 Federico mouth on day Mi, [employer] - one followed 01/17 by 1 tab /2014 daily for the last 4 days Selenium 09/20 Hx Lotion 2.5% 1Bott topical 690.18 Mauro le 2x/week for Luiz Huber, - 2 wks, then Rosa,[facility] 05/16 weekly needed Triamcinolone 12/06 Hx Cream 0.1% 30G apply bid 692.89 Mauro Cream /2012 prn Whitney Conte M.D.,[facility] 12/06 Triamcinolone 12/06 Hx Cream 0.1% 30uni apply qd prn 692.89 Mauro Acetonide /2012 ts Whitney Conte M.D.,[facility] 09/20 Amoxicillin 05/30 Hx Tablets 500mg 28tab 2 tabs po 380.4 Mauro s bid for 7 D. Mayo, - days M.Luiz,[facility] 09/29 Triamcinolone 12/22 Hx Cream 0.1% 30G apply bid 692.89 Mauro Cream /2010 prn Whitney Conte M.D.,[facility] 10/[address] H[address] 325mg 1 po qd Unknown Aspirin / - 09/[address] 1000mg 1 po qd Unknown / - 09/15 Multi Vitamin / Hx Tablets 1 po qd Unknown / - 10/19 Lisinopril 00/00 Hx Tablets 10mg 45tab take 08/16 Mauro /0000 s tablet by Luiz Huber, - mouth once M.D.,FACP 09/27 Immunizations CPT Code Status Date Vaccine Lot # [id number] Given 05/30/2012 Fluzone Vaccine [id number] Given 01/27/2012 Tdap - Tetanus/Diptheria/Acellular Pertussis [id number] Given 05/24/2011 Influenza Virus 3Yrs & Over Vital Signs Date Vital Result Comment 08/16/2018 2:24pm Height 71 inches 5'11" Weight [...] Result H/L Range Note Rapid Influenza 08/12/2018 [facility] Influenza A NEGATIVE Negative 1 A & B Molecular [address] [place] [address] [phone] Influenza B Molecular NEGATIVE Negative Laboratory test 08/12/2018 [facility] Rapid Strep Negative Negative [address] [place] [address] [phone] Laboratory test 07/17/2018 [facility] Lyme Disease Negative Negative [address] [place] [address] [phone] Tick-Borne Panel 07/17/2018 [facility] Babesia microti Negative Negative PCR Blood [address] [place] [address] [phone] Babesia ducani Negative Negative Babesia divergens/Mo-1 Negative Negative 4 Anaplasma phagocytophilum Negative Negative Ehrlichia chaffeensis Negative Negative Ehrlichia ewingii/canis Negative Negative Ehrlichia muris-like Negative Negative 5 B. miyamotoi PCR, B Negative Negative 6 Laboratory test 07/17/2018 [facility] Erythrocyte Sed 23 mm/Hr High 0-[address] [place] [address] [phone] C Reactive Protein 31.94 mg/L High <8.01 Blood Culture SEE RESULT BELOW 7 Inr/Protime 06/16/2018 [facility] Inr 1.29 High 0.77-1.[address] [place], [place] [address] [phone] Laboratory test 06/16/2018 [facility] Partial 39.2 High 26.0- 36.[address] [place] [address] Time PTT [phone] Inr/Protime 05/12/2018 [facility] Inr 1.18 High 0.77-1.[address] [place] [address] [phone] Laboratory test 05/12/2018 [facility] Partial 38.4 High 26.0- 36.[address] [place] [address] Time PTT [phone] Laboratory test 12/28/2017 [facility] Vitamin B12 605 pg/mL N 180-914 8 finding [address] [place] [address] [phone] Comp Metabolic 12/28/2017 [facility] Sodium 138 mmol/L Low 139 -145 Panel [address] [place] [address] [phone] Potassium 4.9 mmol/L N 3.5-5.0 Chloride 102 [...] Egfr 109.5 >60 9 Lipid Profile 12/28/2017 [facility] Triglycerides 58 mg/dL 10 (Trig/Chol/HDL) [address] [place], [place] [id number] [phone] Cholesterol 201 mg/dL 11 HDL Cholesterol 37.0 mg/dL 12 LDL Cholesterol 152 mg/dL 13 Laboratory test 07/11/2017 [facility] TSH (Thyroid 3.00 mcIU/mL N 0.34-5.[address] Stim [place]orm) [place] [address] [phone] Free T4 (Free Thyroxine) 0.69 ng/dL N 0.61-1.12 T3 Total 1.05 ng/mL N 0.87-1.78 Vitamin B12 292 pg/mL N 180-646 14 Coagulation Factor X 119 % 70 - 150 15 CBC Auto 03/02/2017 [facility] White Blood 2.6 10^3/uL Low 3.5 -10.[address] [place] [address] [phone] Red Blood Count 4.29 10^6/uL N 4.0-5.4 [...] Cells % 0 N Laboratory test 03/02/2017 [facility] Vitamin B12 342 pg/mL N 180-914 [address] [place] [address] [phone] Ferritin 66.4 ng/mL N 24-336 Factor X Activity 99 % N 70 - 150 17 Heparin Anti Factor Xa 1.29 IU/mL N 18 Immunoglobulins 02/01/2017 [facility] Immunoglobulin G 1290 N 767 - 19 Serum Quant 101 [facility] mg/dL [address] [place] [address] [phone] Immunoglobulin M 31 mg/dL Abnormal 37 - 286 Immunoglobulin A 401 mg/dL Abnormal 61 - 356 Laboratory test 02/01/2017 [facility] C Reactive 28.14 mg/L High < 5.00 20 finding [address] [place] [address] [phone] Basic Metabolic 01/26/2017 [facility] Sodium 133 mmol/L N 133- 145 Panel [address] [place] [address] [phone] Potassium 4.6 mmol/L N 3.5-5.0 Chloride 100 mmol/L Low 101-111 Co2 Carbon Dioxide 27 mmol/L N 22-32 Anion Gap 6 mmol/L N 2-11 Glucose 96 mg/dL N 70-100 Blood Urea Nitrogen 22 mg/dL N 6-24 Creatinine 0.94 mg/dL N 0.67-1.17 BUN/Creatinine Ratio 23.4 High 8-20 Calcium 9.5 mg/dL N 8.6-10.3 Egfr Non- 89.8 N >60 Egfr 115.5 N >60 21 Laboratory test 01/26/2017 [facility] C Reactive 37.41 mg/L High < 5.00 22 finding 101 [facility] [place] [address] [phone] Erythrocyte Sed Rate 63 mm/Hr High 0-14 Blood Culture SEE RESULT BELOW 23 CBC Auto Diff 01/25/2017 [facility] White Blood 3.9 10^3/uL N 3.5-10.8 [address] [place] [address] [phone] Red Blood Count 4.48 10^6/uL N 4.0-5.4 [...] % 0.1 N CBC Auto Diff 01/18/2017 [facility] White Blood 6.6 10^3/uL N 3.5-10.[address] [place] [address] [phone] Red Blood Count 4.27 10^6/uL N 4.0-5.4 [...] Cells % 0 N Laboratory test 01/18/2017 [facility] C Reactive 76.79 mg/L High < 5.00 [address] [place] [address] [phone] Blood Culture SEE RESULT BELOW 25 Laboratory test 01/17/2017 [facility] Surgical SEE RESULT [address] [place] [address] [phone] CBC Auto Diff 11/22/2016 [facility] White Blood 3.8 10^3/uL N 3.5-[address] Count .8 [place] [address] [phone] Red Blood Count 4.60 10^6/uL N 4.0-5.4 [...] Cells % 0.1 N Laboratory test 11/01/2016 [facility] Rapid Group A Strep negative finding Lipid Profile 10/25/2016 [facility] Triglycerides 62 mg/dL N 27 (Trig/Chol/HDL) [address] [place] [address] [phone] Cholesterol 178 mg/dL N 28 HDL Cholesterol 39.3 mg/dL N 29 LDL Cholesterol 126 mg/dL N 30 Comp Metabolic Panel 10/25/2016 [facility] Sodium 135 mmol/L N 133-[address] [place] [address] [phone] Potassium 4.4 mmol/L N 3.5-5.0 Chloride 100 [...] 108.8 N >60 31 CBC Auto 10/25/2016 [facility] White Blood 2.6 10^3/uL Low 3.5 -10.8 [address] [place] [address] [phone] Red Blood Count 4.83 10^6/uL N 4.0-5.4 [...] Cells % 0 N Laboratory test 10/25/2016 [facility] Creatine 97 U/L N 10- 223 [address] Kinase(CK) [place] [address] [phone] Creatinine 10/25/2016 [facility] Creatinine 1.00 High 0.51- 0.[address] mg/[place] [address] [phone] Urine Collection Time 24 N Urine Total Volume 1850 mL N Urine Random Creatinine 84.68 mg/dL N Creatinine Clearance 109 mL/min N 97-137 Microalbumin 24HR 10/25/2016 [facility] Urine Collection 24 N Urine [address] [place] [address] [phone] Urine Total Volume 1850 mL N Ur Microalbumin (mg/L) 30.8 mg/L N Urine Microalbumin (mg/24Hr) 57.0 mg/24hr High Less than 30 Urine Microalbumin (mcg/min) 39.6 mcg/min High Less than 20 Lyme Disease 10/25/2016 [facility] B burgdorferi Negative N Negative PCR [address] PCR, [place] [address] [phone] B mayonii PCR Negative N Negative B garinii/B afzelii PCR Negative N Negative Lyme Disease PCR Comment See Comment N 34 CBC Auto Diff 09/23/2016 [facility] White Blood 4.7 10^3/uL N 3.5-10.[address] [place] [address] [phone] Red Blood Count 4.98 10^6/uL N 4.0-5.4 [...] % 0.2 N Comp Metabolic Panel 09/23/2016 [facility] Sodium 134 mmol/L N 133-145 [address] [place] [address] [phone] Chloride 99 mmol/L Low 101-111 Co2 Carbon [...] 19 U/L N 13-39 Lipid Profile 09/23/2016 [facility] Triglycerides 215 mg/dL N 36 (Trig/Chol/HDL) [address] [place] [address] [phone] Cholesterol 208 mg/dL N 37 HDL Cholesterol 33.5 mg/dL N 38 LDL Cholesterol 132 mg/dL N 39 Laboratory test 09/23/2016 [facility] Troponin-I 0.01 ng/mL N <0.[address] (TnI) [place] [address] [phone] Inr/Protime 09/23/2016 [facility] Inr 1.00 N 0.89-1.[address] [place] [address] [phone] Laboratory test 09/23/2016 [facility] Partial Thrombo 31.8 N 26.0-36.[address] [place] [address] [phone] Lactic Acid 0.8 mmol/L N 0.5-2.0 41 Type & Screen 09/23/2016 [facility] Patient Blood Type O Positive N [address] [place] [address] [phone] Antibody Screen NEGATIVE N Urinalysis Profile 09/23/2016 [facility] Urine Color Yellow N [address] [place] [address] [phone] Urine Appearance Clear N Urine Specific Pepin 1.019 N 1.010-1.030 Urine pH 6.0 N [...] Casts Present Abnormal Absent Lipid Profile 11/24/2015 [facility] Triglycerides 107 mg/dL N 42 (Trig/Chol/HDL) 101 [place] [address] [phone] Cholesterol 194 mg/dL N 43 HDL Cholesterol 35.8 mg/dL N 44 LDL Cholesterol 137 mg/dL N 45 Basic Metabolic Panel 11/24/2015 [facility] Sodium 136 mmol/L N 133-145 [place] [address] [phone] Potassium 4.8 mmol/L N 3.5-5.0 Chloride 101 mmol/L N 101-111 Co2 Carbon Dioxide 30 mmol/L N 22-32 Anion Gap 5 mmol/L N 2-11 Glucose 99 mg/dL N 70-100 Blood Urea Nitrogen 21 mg/dL N 6-24 Creatinine 0.98 mg/dL N 0.67-1.17 BUN/Creatinine Ratio 21.4 High 8-20 Calcium 9.7 mg/dL N 8.6-10.3 Egfr Non- 86.1 N >60 Egfr 110.7 N >60 46 Creatinine 11/24/2015 [facility] Creatinine 0.98 mg/dL High 0.51-0.[address] [place] [address] [phone] Urine Collection Time 24 N Urine Total Volume 950 mL N Urine Random Creatinine 161.12 mg/dL N Creatinine Clearance 108 mL/min N 97-137 Microalbumin 24HR 11/24/2015 [facility] Urine Collection [address] [place] [address] [phone] Urine Total Volume 950 mL N Ur Microalbumin (mg/L) 49.0 mg/L N Urine Microalbumin (mg/24Hr) 46.6 mg/24hr High Less than 30 Urine Microalbumin (mcg/min) 32.3 mcg/min High Less than 20 Urine Microalbumin 11/24/2015 [facility] Ur Microalbumin 168.0 mg/L N Random [address] (mg/L) [place] [address] [phone] Urine Creatinine 374.62 mg/dL N Urine Microalbumin/Creatinine 44.8 ug/mg High <31 Throat-Beta 12/09/2014 [facility] Throat Beta Strep (SEE NOTE) [address] [place] [address] [phone] Lipid Profile 09/07/2014 [facility] Triglycerides 74 mg/dL N 48, 49 (Trig/Chol/HDL) [address] [place] [address] [phone] Cholesterol 207 mg/dL N 50 HDL Cholesterol 40.9 mg/dL N 51 LDL Cholesterol 151 mg/dL N 52 Laboratory test 09/07/2014 [facility] Glucose 96 mg/dL N 70- [address] [place] [address] [phone] Basic Metabolic Panel 09/07/2014 [facility] Sodium 135 mmol/L N 133-[address] [place] [address] [phone] Potassium 4.6 mmol/L N 3.5-5.0 Chloride 99 mmol/L Low 101-111 Co2 Carbon Dioxide 29 mmol/L N 22-32 Anion Gap 7 mmol/L N 2-11 Blood Urea Nitrogen 23 mg/dL N 6-24 Creatinine 1.07 mg/dL N 0.67-1.17 BUN/Creatinine Ratio 21.5 High 8-20 Calcium 9.5 mg/dL N 8.6-10.3 Egfr Non- 78.2 N >60 Egfr 100.6 N >60 53 Microalbumin 24HR 09/07/2014 [facility] Ur Microalbumin 35.0 mg/ L N Urine [address] (mg/L) [place], [place] [address] [phone] Urine Microalbumin (mg/24Hr) 35.0 mg/24hr High Less than 30 Urine Microalbumin (mcg/min) 24.3 mcg/min High Less than 20 Urine Collection Time 24 N Urine Total Volume 1000 mL N Creatinine 09/07/2014 [facility] Urine Random 170.36 mg/dL N Clearance [address] [place] [address] [phone] Creatinine 1.09 mg/dL High 0.51-0.95 Creatinine Clearance 109 mL/min N 97-137 Urine Collection Time 24 N Urine Total Volume 1000 mL N Total Protein 24HR 12/27/2012 [facility] Urine Random Total 15 mg/dL Urine [address] [place] [address] [phone] Urine Total Protein/24HR 210 mg/24Hr High 0-165 Urine Collection Time 24 Urine Total Volume 1400 mL Laboratory test 10/18/2012 [facility] TSH (Thyroid 2.31 0.34- 5.[address] Stimulating miu/[place] [address] Horm) [phone] Vitamin B12 439 pg/mL 180-914 Iron & Iron Binding 10/18/2012 [facility] Iron 73 g/dL 45- [address] [place] [address] [phone] Unsaturated Iron Binding 356 g/dL Total Iron Binding Capacity 429 g/dL 250-450 % Iron Saturation 17 % 15-55 Laboratory 10/18/2012 [facility] Luly (Anti-Nuclear Negative Negative test finding [address] AB) [place] [address] [phone] Creatinine 10/23/2011 [facility] Creatinine Random 199.3 mg/dL [address] [place] [address] [phone] Creat Clearance 115 mL/min 80-125 Hours Of Collection 24 HR 24- Urine Volume Measurement 750 ML Total Protein 24HR 10/23/2011 [facility] Total Protein 38 mg/dL Urine [address] [place] [place] [address] [phone] Urine Total Protein/24HR 285 MG/24HR High 50-100 Lipid Profile 10/23/2011 [facility] Triglyceride 78 mg/dL 40- 200 (Trig/Chol/HDL) [address] [place] [address] [phone] Cholesterol 191 mg/dL Less Than 200 55 High Density Lipoprotein 32 mg/dL Low 40-60 56 Cholesterol/HDL Ratio 5.97 AVERAGE High 1-4.97 Low Density Lipoprotein 143 mg/dL High Less Than 100 57 Basic Metabolic Panel 10/23/2011 [facility] Sodium 138 mmol/L 135-[address] [place] [address] [phone] Potassium 4.9 mmol/L 3.5-5.0 Chloride 101 mmol/L 101-111 Co2 (Carbon Dioxide) 29.0 mmol/L 22-32 Anion Gap 8.0 mmol/L 2-11 58 Glucose 94 mg/dL 70-100 BUN 16 mg/dL 6-24 Creatinine 0.9 mg/dL 0.50-1.40 One Over Creatinine 1.11 BUN/Creatinine Ratio 17.8 8-20 Calcium 9.2 mg/dL 8.1-9.9 eGFR Non- 97.2 > 60 eGFR 125.0 > 60 59 1 Pmo Project Manager: [id number] Pmo Project Manager: [id number] No evidence of antibodies to B. burgdorferi detected. False negative results may occur in recently infected patients (<=2 weeks) due to low or undetectable antibody levels to B. burgdorferi. If recent exposure is suspected, a second sample should be collected and tested in 2-4 weeks. Test Performed by: [facility] [address] [place] [address] 4 ADDITIONAL INFORMATION This test was developed and its performance characteristics determined by [facility] in a manner consistent with CLIA requirements. This test has not been cleared or approved by the U.S. Food and Drug Administration. 5 ADDITIONAL INFORMATION This test was developed and its performance characteristics determined by [facility] in a manner consistent with CLIA requirements. This test has not been cleared or approved by the U.S. Food and Drug Administration. 6 ADDITIONAL INFORMATION This test was developed and its performance characteristics determined by [facility] in a manner consistent with CLIA requirements. This test has not been cleared or approved by the U.S. Food and Drug Administration. Test Performed by: [facility] - [address] [address] 7 SEE RESULT BELOW Name: ALDEN MAHONEY : [address]: Suzie Livingston NP Acct: [id number] Unit: [id number] AGE: 38 Location: [facility] Re07/17/18 SEX: M Status: REG REF SPEC: [id number] YENNI: 07/17/[address]: Suzie Livingston NP REQ: [id number] RECD: 07/17/18 STATUS: GENESIS BERRY DR: Mauro Huber MD _ SOURCE: BLOOD,VENO SPDES: ORDERED: Blood Cult Procedure Result Reported Site Aerobic Culture Bottle Final 07/22/18- 1643 ML No Growth Day 5 Anaerobic Culture Bottle Final 07/22/181643 ML No Growth Day 5 * ML - Main Lab . END OF REPORT DEPARTMENT OF PATHOLOGY, [address] [place] [address] Kojo Hou M.D. Director [facility] # [id number] Normal Range 180 to 914 Indeterminate [...] This test has been modified from the casing runner's instructions. Its performance characteristics were determined by [facility] in a manner consistent with CLIA requirements. This test has not been cleared or approved by the U.S. Food and Drug Administration. Test Performed by: [address] [id number] 16 Normal Range 180 to 914 Indeterminate Range 145 to 180 Deficient Range <145 17 ADDITIONAL INFORMATION This test has been modified from the casing runner's instructions. Its performance characteristics were determined by [facility] in a manner consistent with CLIA requirements. This test has not been cleared or approved by the U.S. Food and Drug Administration. Test Performed by: [place] [id number] UFH therapeutic range: 0.30-0.70 IU/mL LMWH therapeutic range: 0.50-1.00 IU/mL 0.50-1.00 IU/mL for twice daily dosing 1.00-2.00 IU/mL for once daily dosing (sample obtained 4-6 hours following subcutaneous injection) LMWH prophylactic range:0.10-0.30 IU/mL ADDITIONAL INFORMATION Heparin Anti-Xa is used to measure heparin concentrations in patients receiving low molecular weight heparin (LMWH) or unfractionated heparin (UFH). Test Performed by: [place] [address] 19 Test Performed by: [place] [address] 20 Acute inflammation: >10.00 21 Because ethnic [...] [address]: Licha Barraza MD Acct: [id number] Unit: [id number] AGE: 36 Location: [place] [address] Re01/26/17 Dis: 01/28/17 SEX: M Status: DIS Kylie SPEC: [id number] YENNI: 01/26/17-[address]: Licha Barraza MD REQ: [id number] RECD: 01/26/17 STATUS: GENESIS BERRY DR: Mauro Wells MD _ SOURCE: BLOOD,VENO SPDESC: ORDERED: Blood Cult Procedure Result Reported Site Aerobic Culture Bottle Final 01/31/17- 1244 ML No Growth Day 5 Anaerobic Culture Bottle Final 01/31/17- 1244 ML No Growth Day 5 * ML - MAIN LAB ([facility]) . END OF REPORT * ML=Testing performed at Main Lab DEPARTMENT OF PATHOLOGY, [address] [place] [address] Kojo Hou M.D. Director [facility] # [id number] Acute inflammation: >10.00 25 SEE RESULT BELOW Name: ALDEN MAHONEY : [address]: Boni Wells MD Acct: [id number] Unit: [id number] AGE: 36 Location: LAB Re01/18/17 SEX: M Status: REG REF SPEC: [id number] YENNI: 01/18/17-[address]: Boni Wells MD REQ: [id number] RECD: 01/18/17 STATUS: COMP JAMAL DR: Mauro Huber MD _ SOURCE: BLOOD,VENO SPDESC: ORDERED: Blood Cult Procedure Result Reported Site Aerobic Culture Bottle Final 01/23/17- 1552 ML No Growth Day 5 Anaerobic Culture Bottle Final 01/23/17- 1552 ML No Growth Day 5 * ML - [facility] ([facility]) . END OF REPORT * ML=Testing performed at Main Lab DEPARTMENT OF PATHOLOGY, [address] [place] [address] Kojo Hou M.D. Director [facility] # [id number] 26 SEE RESULT BELOW Name: ALDEN MAHONEY : [address]: Boni Wells MD Acct: [id number] Unit: [id number] AGE: 36 Location: [facility] Re01/17/17 SEX: M Status: REG REF SPEC: [id number] YENNI: 01/17/17-[address]: Boni Wells MD REQ: [id number] RECD: 01/17/17 STATUS: SOUT _ ORDERED: LEVEL 1 FINAL DIAGNOSIS Pacemaker generator, removal: Foreign body (pacemaker generator) (Gross diagnosis). PRE-OPERATIVE DIAGNOSIS AV block, pacemaker elective replacement indication GROSS DESCRIPTION The specimen is received fresh with no source identified and a requisition labeled, Pacemaker Generator, and consists of a 4.2 x 4.0 x 0.7 cm quinonez metallic medical assistant supervisor. The following inscription is identified: [employer] [id number] [facility]. Per established hospital medical staff protocol, no tissue is submitted. Gross only. Signed (signature on file) Lore Sykes MD 01/29 0944 END OF REPORT * ML=Testing performed at Main Lab DEPARTMENT OF PATHOLOGY, [address] [place] [address] Kojo Hou M.D. Director [facility] # [id number] 27 Desirable <150 Borderline high 150-199 High [...] developed and its performance characteristics determined by [facility] in a manner consistent with CLIA requirements. This test has not been cleared or approved by the U.S. Food and Drug Administration. Test Performed by: [facility] - [address] [address] 35 Because ethnic data is not always [...] 40 99th percentile=0.04 ng/mL Troponin results at [facility] and [facility] are not interchangeable. 41 [facility] Severe Sepsis and Septic [...] <15 (or dialysis) 47 RUN DATE: 12/12/14 [facility] LAB LIVE PAGE 1 RUN TIME: [address] [place] [id number] Specimen Inquiry Name: ALDEN MAHONEY : [address]: Federico Walters MD Acct: [id number] Unit: [id number] AGE: 34 Location: [facility] Re12/09/14 SEX: M Status: DEP ER SPEC: [id number] YENNI: 12/09/14-[address] [facility] [address]: Federico Walters MD REQ: [id number] RECD: 12/10/14-1057 STATUS: COMP OTHR DR: Mauro Huber MD _ SOURCE: THROAT SPDESC: ORDERED: Throat Beta Str Procedure Result Verified Site Throat Beta Strep Culture Final 12/12/14- 0852 ML Negative For Group A Beta Streptococcus * ML - MAIN LAB ([facility]) . END OF REPORT * ML=Testing performed at Main Lab DEPARTMENT OF PATHOLOGY, [address] [place] [address] Kojo Hou M.D. Director [facility] # [id number] 48 FASTING 10 HOUR 49 Desirable <150 [...] dialysis) Procedures Date Code Description Status 08/24/2018 13651 Pace Maker Eval W/Iterative Adjustment Single Lead Completed 01/20/2018 97814 Pace Maker Eval W/Iterative Adjustment Single Lead Completed 01/20/2018 91274 Pace Maker Eval W/Iterative Adjustment Single Lead Completed 11/04/2017 07413 EKG Tracing & Interpretation Completed 07/22/2017 65553 Pace Maker Eval W/Iterative Adjustment Single Lead Completed 07/22/2017 40970 Pace Maker Eval W/Iterative Adjustment Single Lead Completed 01/26/2017 19143 I&D Of Hematoma Completed 01/17/2017 06643 Removal Pacemaker W/Replacement Of Pacemaker Pulse Completed Generator 11/24/2016 10485 ECHO Transthoracic, Real-Time 2D With Doppler And Color Completed Flow 11/24/2016 45586 Interrogation Device Eval In Person W/ Completed Analysis,Single,Dual,Mul 11/04/2016 08811 Pace Maker Eval W/Iterative Adjustment Single Lead Completed 10/13/2016 04357 EKG Tracing & Interpretation Completed 09/24/2016 84036 EEG Recording Awake & Drowsy Completed 09/24/2016 30736 ECHO Transthorasic Realtime 2D W Doppler & Color Flow Hosp Completed 09/06/2016 57259 Interrogation Device Eval In Person W/ Completed Analysis,Single,Dual,Mul 07/07/2016 26652 Interrogation Device Eval In Person W/ Completed Analysis,Single,Dual,Mul 05/21/2016 58714 EKG Tracing & Interpretation Completed 05/07/2016 62484 Pace Maker Eval W/Iterative Adjustment Single Lead Completed 10/21/2015 98979 Pace Maker Eval W/Iterative Adjustment Single Lead Completed 05/29/2015 65952 EKG Tracing & Interpretation Completed 04/30/2015 57084 Interrogation Device Eval In Person W/ Completed Analysis,Single,Dual,Mul 11/14/2014 40545 ECHO Transthoracic, Real-Time 2D With Doppler And Color Completed Flow 10/14/2014 23155 Pace Maker Eval W/Iterative Adjustment Single Lead Completed 04/10/2014 29736 Pace Maker Eval W/Iterative Adjustment Single Lead Completed 09/27/2013 92920 Interrogation Device Eval In Person W/ Completed Analysis,Single,Dual,Mul 03/28/2013 11782 Pace Maker Eval W/Iterative Adjustment Single Lead Completed 09/27/2012 33956 Pace Maker Eval W/Iterative Adjustment Single Lead Completed 09/19/2012 51080 ECHO Transthoracic, Real-Time 2D With Doppler And Color Completed Flow Encounters Type Date Location Provider Dx Diagnosis Office Visit 08/16/2018 [facility] Roxana Tai MD J02.9 Acute pharyngitis, 2:40p Medicine - [place] B37.84 Candidal otitis externa Office Visit 07/19/2018 [facility] Mauro Dee H66.92 Otitis media, 11:20a Medicine - [place], unspecified, left ear [place] Shaun Lee,FACP Office Visit 07/17/2018 [facility] Suzie Livingston, R53.81 Other malaise 3:40p Armen Joy[place]wood Office Visit 11/04/2017 [facility] [place] I44.2 Atrioventricular 11:15a Cardiology Abhijeet Wells M.D. 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 cardiac pacemaker I48.2 Chronic atrial fibrillation Office Visit 02/11/2017 9:40a [facility] Mauro Dee I97.638 Postproc Armen Huber M.D.,[facility] hematoma of a [address] circ sys org fol other circ sys proc I48.2 Chronic atrial fibrillation Office Visit 02/01/2017 11:30a [facility] Randolph Dee I97.638 Postproc Infectious Rosa Colbert hematoma of a Diseases circ sys org fol other circ sys proc R79.82 Elevated C-reactive protein (CRP) Z86.19 Personal history of other infectious and parasitic diseases Office Visit 01/28/2017 10:27a [facility] Randolph Dee I97.638 Postproc Infectious Rosa Colbert hematoma of a Diseases circ sys org fol other circ sys proc R79.82 Elevated C-reactive protein (CRP) R50.9 Fever, unspecified Q24.6 Congenital heart block Office Visit 01/07/2017 11:00a [facility] Mauro Dee Z00.01 Encounter for Armen Huber M.D.,AKI general adult [address] medical exam w abnormal findings I42.9 Cardiomyopathy, unspecified I48.2 Chronic atrial fibrillation D64.89 Other specified anemias N18.1 Chronic kidney disease, stage 1 Office Visit 12/10/2016 2:30p [facility] Boni Dee Z95.0 Presence of Of [place] Wells M.D. cardiac pacemaker I44.2 Atrioventricular block, complete I48.2 Chronic atrial fibrillation Office Visit 12/08/2016 [facility] Medicine Mauro Dee I73.00 Raynaud' s 9:30a - [address] [place], delvin without Rosa,FACP gangrene Office Visit 11/10/2016 [facility] Federico Rivera, I63.9 Cerebral 11:00a Clinic infarction, unspecified I48.2 Chronic atrial fibrillation R27.0 Ataxia, unspecified Z86.73 Prsnl hx of TIA (TIA), and cereb infrc w/o resid deficits Office Visit 11/01/2016 [facility] Jose Matthews, J00 Acute nasopharyngitis 10:40a Medicine - [place] [employer] WORK[employer] [common cold] Rd Office Visit 10/13/2016 [place] I48.2 Chronic atrial 10:45a Cardiology Of Rosa Wells fibrillation [facility] Z95.0 Presence of cardiac pacemaker I63.9 Cerebral infarction, unspecified Office Visit 09/27/2016 3:00p [facility] Mauro Dee I63.412 Cereb infrc due Medicine Whitney Huber M.D.,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 E78.1 Pure hyperglyceridemia I48.2 Chronic atrial fibrillation I42.9 Cardiomyopathy, unspecified Office Visit 09/25/2016 [facility] Elana Gutiérrez, I63.9 Cerebral 10:52a Clinic infarction, unspecified I48.91 Unspecified atrial fibrillation Office Visit 09/25/2016 4:11p [facility] Darcy I63.412 Cereb infrc Assoc,mami Tyler NP due to Hospitalists embolism of left middle cerebral artery I48.2 Chronic atrial fibrillation I10 Essential (primary) hypertension G98.8 Other disorders of nervous system Office Visit 09/24/2016 [facility] Federico I63.9 Cerebral 10:46a Clinic MD Nicole infarction, unspecified I48.91 Unspecified atrial fibrillation Office Visit 09/24/2016 4:10p [facility] Jonathan I63.412 Cereb infrc Assoc,mami Lopez M.D. due to Hospitalists embolism of left middle cerebral artery I48.2 Chronic atrial fibrillation I10 Essential (primary) hypertension G98.8 Other disorders of nervous system Office Visit 09/23/2016 [facility] Federico I63.9 Cerebral 10:42a Clinic MD Nicole infarction, unspecified R29.711 Nihss score 11 I48.91 Unspecified atrial fibrillation Z79.82 assisted (current) use of aspirin [facility] I63.412 Cereb infrc 4:10p Assmami gil II, M.D. due to Hospitalists embolism of left middle cerebral artery I48.2 Chronic atrial fibrillation I10 Essential (primary) hypertension G98.8 Other disorders of nervous system Office Visit 05/21/2016 Lauro Dee I44.2 Atrioventricular 10:15a Cardiology Abhijeet Wells M.D. block, complete Blood Tester Fowl Z95.0 Presence of cardiac pacemaker I48.2 Chronic atrial fibrillation Office Visit 01/28/2016 [facility] Mauro Dee L03.211 Cellulitis of face 8:50a [address], M.D.,FACP Office Visit 05/29/2015 La[place] Dee I44.2 Atrioventricular 10:00a Cardiology Abhijeet Wells M.D. block, complete Blood Tester Fowl I48.2 Chronic atrial fibrillation I42.9 Cardiomyopathy, unspecified Z95.0 Presence of cardiac pacemaker Office Visit 01/17/2015 2:40p [facility] Mauro Dee 473.1 Sinusitis Chronic Armen Huber M.D.,FACP Frontal [address] Office Visit 12/11/2014 9:00a [facility] Federico Mi NP 465.8 Upper Respiratory Medicine - Infections Acute [address] Other Multiple Sites 465.9 URI Upper Respiratory Infections Acute Unspec Sites Office Visit 05/16/2014 Lauro Dee 426.0 Atrioventricular Block 12:30p Cardiology Abhijeet Wells M.D. Complete Blood Tester Fowl 427.31 Atrial Fibrillation Office Visit 09/20/2013 [facility] Mauro Dee 690.18 Seborrheic 11:50a Armen Huber M.D.,FACP Dermatitis Other [place] Office Visit 05/03/2013 Lauro Dee 425.4 Cardiomyopathy 12:45p Cardiology Abhijeet Wells M.D. Other Prim Blood Tester Fowl 426.0 Atrioventricular Block Complete Office Visit 10/18/2012 11:30a [facility] Mauro Dee 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 Armen Huber M.D.,[facility] Plantar Fascia [place] 704.00 Alopecia Unspec Office Visit 09/27/2012 Lauro Dee 426.0 Atrioventricular Block 3:15p Cardiology Of Rosa Wells Complete [facility] 425.4 Cardiomyopathy Other Prim Office Visit 05/30/2012 8:30a [facility] Mauro Dee 380.4 Impacted Armen Huber M.D.,[facility] Cerumen [place] V04.81 Need For Prophylactic Vaccination & Inoculation/Influenza Office Visit 01/27/2012 2:00p [facility] Mauro Dee V70.0 Examination Armen Huber M.D.,[facility] General [facility] Routine AT Health Care Facility 427.31 Atrial Fibrillation 585.1 Chronic Kidney Disease Stage I v06.1 Drtlflcxuz-Rljddvk-Klhlcjth Combined (DTaP) Office Visit 10/20/2011 10:10a [facility] Mauro Dee 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.,[facility] Dystrophy [place] Pigmentary V48.5 Sensory Problem Head & Trunk 427.31 Atrial Fibrillation 272.2 Hyperlipidemia Mixed 791.0 Proteinuria Office Visit 12/22/2010 2:00p DO Not Use [place] Dee 427.31 Atrial AT [facility] Rosa Huber,[facility] Fibrillation 378.73 Strabismus In Other Neuromuscular Disorders 692.89 Dermatitis Due To Spec Agents Other 272.2 Hyperlipidemia Mixed Plan of Treatment Future Appointment(s):08/30/2018 1:40 pm - Roxana Tai MD at [facility] Medicine - [address]12/25/2018 1:00 pm - Roxana Tai MD at [facility] Medicine - [address]08/16/2018 - Roxana Tai MDJ02.9 Acute pharyngitis, rujixtjimvhX33.84 Candidal otitis externaNew Medication:Hydrocortisone-Acetic Acid 1-2 % - 5 drops in left ear three times a day for 7 daysFollow up:2 weeks
[2018-09-13] MEDS ORDERED: Amoxicillin/Clavulanate TAB* 875 MG PO ONE (00:42)
--- NOTE | 2018-09-13 00:43 | ED ---
Skin Complaint - HPI Summary HPI Summary: Patient complains of redness and swelling to bridge of nose starting yesterday. Denies injury, but states he did try and a bunch of eyeglasses yesterday. Denies any other pain, injury or symptoms. - History of Current Complaint Chief Complaint: EDGeneral Time Seen by Provider: 09/13/18 00:23 Stated Complaint: NOSE PROBLEM Hx Obtained From: Patient Onset/Duration: Started Days Ago Timing: Constant Current Severity: None Pain Intensity: 0 Pain Scale Used: 0-10 Numeric Skin Location: Face Aggravating Symptom(s): Nothing Alleviating Symptom(s): Nothing Associated Signs & Symptoms: Negative - Additional Pertinent History Primary Care Physician: [id number] - Allergy/Home Medications Allergies/Adverse Reactions: Allergies Allergy/AdvReac Type Severity Reaction Status Date / Time No Known Allergies Allergy Verified 09/12/18 22:57 PMH/Surg Hx/FS Hx/Imm Hx Endocrine/Hematology History: Reports: Hx Anticoagulant Therapy Cardiovascular History: Reports: Hx Congenital Heart Disease, Hx Pacemaker/ICD, Other Cardiovascular Problems/Disorders - A-Fib, dilated cardiomyopathy Respiratory History: Reports: Hx Pneumonia - at 1 years old History: Reports: Other Problems/Disorders - Proteinuria and hematuria Musculoskeletal History: Reports: Hx Scoliosis, Other Musculoskeletal History - pectus excavatum Sensory History: Reports: Hx Cataracts, Hx Contacts or Glasses, Other Sensory Impairments - Pigment on retna, exotrophia Denies: Hx Hearing Aid Opthamlomology History: Reports: Hx Cataracts, Hx Contacts or Glasses, Other Sensory Impairments - Pigment on retna, exotrophia Neurological History: Reports: Hx Migraine - One bad migraine as a teenager, Other Neuro Impairments/Disorders - Slurred speech/motor deficits at baseline. No diagnosis depsite testing Psychiatric History: Reports: Hx Anxiety - Social anxiety - Surgical History Surgery Procedure, Year, and Place: PACEMAKER, PECTUSEXCAVATUM REPAIR, EYE SURGERY, muscle biopsy, wisdom teeth Infectious Disease History: No Infectious Disease History: Denies: Traveled Outside the [place] in Last 30 Days - Family History Known Family History: Positive: Hypertension - Social History Alcohol Use: None Alcohol Amount: 2 drinks per month Substance Use Type: Reports: None Smoking Status (MU): Never Smoked Tobacco Review of Systems Constitutional: Negative Eyes: Negative ENT: Negative Cardiovascular: Negative Respiratory: Negative Gastrointestinal: Negative Genitourinary: Negative Musculoskeletal: Negative Skin: Other Neurological: Negative Psychological: Normal All Other Systems Reviewed And Are Negative: Yes Physical Exam - Summary Physical Exam Summary: Erythema to the bridge of nose with mild swelling on the left side. EENT exam otherwise normal. Triage Information Reviewed: Yes Vital Signs On Initial Exam: Initial Vitals Temp Pulse Resp BP Pulse Ox 97.9 F 97 16 124/72 97 09/12/18 22:54 09/12/18 22:54 09/12/18 22:54 09/12/18 22:54 09/12/18 22:54 Vital Signs Reviewed: Yes Appearance: Positive: Well-Appearing Skin: Positive: Warm Head/Face: Positive: Normal Head/Face Inspection Eyes: Positive: Normal ENT: Positive: Normal ENT inspection Neck: Positive: Supple Respiratory/Lung Sounds: Positive: Clear to Auscultation Cardiovascular: Positive: Normal Abdomen Description: Positive: Nontender Musculoskeletal: Positive: Normal Neurological: Positive: Normal Psychiatric: Positive: Normal AVPU Assessment: Alert - Beth Coma Scale Best Eye Response: 4 - Spontaneous Best Motor Response: 6 - Obeys Commands Best Verbal Response: 5 - Oriented Coma Scale Total: 15 Diagnostics - Vital Signs Vital Signs Temp Pulse Resp BP Pulse Ox 09/12/18 22:54 97.9 F 97 16 124/72 97 - Laboratory Lab Statement: Any lab studies that have been ordered have been reviewed, and results considered in the medical decision making process. Course/Dx - Course Course Of Treatment: Patient complains of redness and swelling to bridge of nose starting yesterday. Denies injury, but states he did try and a bunch of eyeglasses yesterday. Denies any other pain, injury or symptoms. Physical exam :Erythema to the bridge of nose with mild swelling on the left side. EENT exam otherwise normal. Vital signs within normal limits. Diagnosis cellulitis. - Diagnoses Provider Diagnoses: Cellulitis Discharge - Sign-Out/Discharge Documenting (check all that apply): Patient Departure - Discharge Plan Condition: Stable Disposition: HOME Prescriptions: Amoxicillin/Clavulanate TAB* [Augmentin TAB 875*] 875 mg PO BID #20 tab Patient Education Materials: Cellulitis (ED) Referrals: Roxana Tai MD [Primary Care Provider] - Additional Instructions: Take antibiotics as directed. Keep area clean and dry. Return to the ED for any new or worsening symptoms. - Billing Disposition and Condition Condition: STABLE Disposition: Home
[2018-09-13 00:58] VITALS: BP 112/66
== END 2018-09-13 00:57 | disposition home or self-care (01) ==
LOC: ED 22:52
DX: J34.0 Abscess, furuncle and carbuncle of nose (principal); I48.91 Unspecified atrial fibrillation; Z79.01 Long term (current) use of anticoagulants; Z95.810 Presence of automatic (implantable) cardiac defibrillator; Z82.49 Family history of ischemic heart disease and other diseases of the circulatory system
CPT/HCPCS: 99282; A9270-GY

== ENCOUNTER 2018-09-13 18:44 | Emergency (ER) | payer MEDICARE, MEDICAID ==
--- NOTE | 2018-09-13 19:04 | ED ---
Skin Complaint - HPI Summary HPI Summary: Pt is a 38 y/o M presenting to the ED with a chief complaint of a rash with associated fever of 99.6. Pt was here yesterday with a small rash on the bridge of his nose, has taken two doses of abx, but the rash has gotten slightly larger and the pt had a temperature of 99.6. The pt denies shaking or chills. - History of Current Complaint Chief Complaint: EDFever Time Seen by Provider: 09/13/18 18:56 Stated Complaint: FEVER Hx Obtained From: Patient Onset/Duration: Started Days Ago, Still Present Skin Exposure Onset/Duration: Days Ago Timing: Constant, Lasting Days Onset Severity: Mild Current Severity: Mild Pain Intensity: 3 Pain Scale Used: 0-10 Numeric Skin Location: Nose Character: Redness Aggravating Symptom(s): Nothing Alleviating Symptom(s): Nothing Associated Signs & Symptoms: Fever - Additional Pertinent History Primary Care Physician: [id number] - Allergy/Home Medications Allergies/Adverse Reactions: Allergies Allergy/AdvReac Type Severity Reaction Status Date / Time No Known Allergies Allergy Verified 09/13/18 18:51 PMH/Surg Hx/FS Hx/Imm Hx Previously Healthy: No Endocrine/Hematology History: Reports: Hx Anticoagulant Therapy Cardiovascular History: Reports: Hx Congenital Heart Disease, Hx Pacemaker/ICD, Other Cardiovascular Problems/Disorders - A-Fib, dilated cardiomyopathy Respiratory History: Reports: Hx Pneumonia - at 1 years old History: Reports: Other Problems/Disorders - Proteinuria and hematuria Musculoskeletal History: Reports: Hx Scoliosis, Other Musculoskeletal History - pectus excavatum Sensory History: Reports: Hx Cataracts, Hx Contacts or Glasses, Other Sensory Impairments - Pigment on retna, exotrophia Denies: Hx Hearing Aid Opthamlomology History: Reports: Hx Cataracts, Hx Contacts or Glasses, Other Sensory Impairments - Pigment on retna, exotrophia Neurological History: Reports: Hx Migraine - One bad migraine as a teenager, Other Neuro Impairments/Disorders - Slurred speech/motor deficits at baseline. No diagnosis depsite testing Psychiatric History: Reports: Hx Anxiety - Social anxiety - Surgical History Surgery Procedure, Year, and Place: PACEMAKER, PECTUSEXCAVATUM REPAIR, EYE SURGERY, muscle biopsy, wisdom teeth Infectious Disease History: No Infectious Disease History: Denies: Traveled Outside the [place] in Last 30 Days - Family History Known Family History: Positive: Hypertension - Social History Alcohol Use: Rare Alcohol Amount: 2 drinks per month Substance Use Type: Reports: None Smoking Status (MU): Never Smoked Tobacco Review of Systems Positive: Fever. Negative: Chills Positive: Rash - bridge of nose All Other Systems Reviewed And Are Negative: Yes Physical Exam - Summary Physical Exam Summary: Appearance: Well-appearing, Well-nourished, lying in bed comfortably Skin: Warm, dry, small area of cellulitis above the bridge of the nose without abscess and without extension to main lower area Eyes: sclera anicteric, no conjunctival pallor ENT: mucous membranes moist, pharynx appears normal Neck: Supple, nontender Respiratory: Clear to auscultation, no signs of respiratory distress Cardiovascular: Normal S1, S2. No murmurs. Normal distal pulses in tibial and radial bilaterally. Abdomen: Soft, nontender, normal active bowel sounds present Musculoskeletal: Normal, Strength/ROM Intact Neurological: A&Ox3, awake and alert, mentation is normal, speech is fluent and appropriate Psychiatric: affect is normal, does not appear anxious or depressed Triage Information Reviewed: Yes Vital Signs On Initial Exam: Initial Vitals Temp Pulse Resp BP Pulse Ox 98.5 F 93 14 99/70 97 09/13/18 18:49 09/13/18 18:49 09/13/18 18:49 09/13/18 18:49 09/13/18 18:49 Vital Signs Reviewed: Yes Diagnostics - Vital Signs Vital Signs Temp Pulse Resp BP Pulse Ox 09/13/18 18:49 98.5 F 93 14 99/70 97 - Laboratory Lab Statement: Any lab studies that have been ordered have been reviewed, and results considered in the medical decision making process. Course/Dx - Diagnoses Provider Diagnoses: Cellulitis Discharge - Sign-Out/Discharge Documenting (check all that apply): Patient Departure Patient Received Moderate/Deep Sedation with Procedure: No - Discharge Plan Condition: Stable Disposition: HOME Patient Education Materials: Cellulitis (ED) Referrals: Roxana Tai MD [Primary Care Provider] - Additional Instructions: I think this infection is acting as I would expect. Often the area of redness will get slightly larger in the first day or so of treatment, but as the antibiotics take hold in days 2-3 on treatment it should start to come down. Fever is defined (generally) as a temp of >100.4 F or 38 C. Call me if you have any concerns with how this is going overnight, I'll be here all night until 7 am. - Billing Disposition and Condition Condition: STABLE Disposition: Home - Attestation Statements Document Initiated by Angelic: Yes Documenting Scribe: Sharon Ruff Provider For Whom Angelic is Documenting (Include Credential): Raymond Bland MD. Scribe Attestation: I, Sharon Ruff, rayrayed for Raymond Bland MD. on 09/14/18 at 0230. Scribe Documentation Reviewed: Yes Provider Attestation: The documentation as recorded by the Sharon wills accurately reflects the service I personally performed and the decisions made by me, Raymond Bland MD. Status of Scribe Document: Viewed
[2018-09-13 19:11] VITALS: BP 105/60
== END 2018-09-13 19:10 | disposition home or self-care (01) ==
LOC: ED 18:44
DX: L03.211 Cellulitis of face (principal); Z79.01 Long term (current) use of anticoagulants; Q24.9 Congenital malformation of heart, unspecified; I48.91 Unspecified atrial fibrillation; I42.0 Dilated cardiomyopathy; F41.9 Anxiety disorder, unspecified
CPT/HCPCS: 99281

== ENCOUNTER 2021-11-25 11:45 | Inpatient (IN) ==
[2021-11-25 13:30] LABS: ABS Lymphocytes 0.7 10^3/ul (1.0-4.8); ABS Monocytes 0.6 10^3/ul (0-0.8); ABS Neutrophils 1.9 10^3/ul (1.5-7.7); Eosinophil % 1.4 %; Hematocrit 40 % (42-52); Hemoglobin 13.7 g/dL (14.0-18.0); Mean Corpuscular HGB Conc 35 g/dL (31-36); Mean Corpuscular Hemoglobin 30 pg (27-31); Mean Corpuscular Volume 88 fL (80-94); Mean Platelet Volume 6.8 fL (7.4-10.4); Platelet Count 230 10^3/uL (150-450); Red Cell Distribution Width 13 % (10-15); White Blood Count 3.2 10^3/uL (3.5-10.8)
[2021-11-25 13:54] LABS: Albumin 4.5 g/dL (3.2-5.2); Albumin/Globulin Ratio 1.7 (1-3); Globulin 2.7 g/dL (2-4); Magnesium 1.9 mg/dL (1.9-2.7); Potassium 4.3 mmol/L (3.5-5.0); Total Bilirubin 0.8 mg/dL (0.2-1.0); Total Protein 7.2 g/dL (6.4-8.9); eGFR CKD-EPI 92.4 (>60)
[2021-11-25 15:07] LABS: High Sensitivity Troponin 1 Hr 8 pg/mL (<20)
[2021-11-25 15:13] LABS: Activated Partial Thrombo Time 38.2 seconds (26.0-38.0); INR 1.44 (0.86-1.15)
[2021-11-25] MEDS ORDERED: Dextran 70/Hypromellose Tears Eye Drops 15 ml BTL (for Artificials Tears) BOTH EYES PRN (17:10)
[2021-11-25] MEDS ORDERED: Enoxaparin 80 MG/0.8 ML SYR SUBCUT SCH (21:00)
[2021-11-25] MEDS: CMCS: Ketorolac 0.5% OPHTH (NF) 0.5 % 5 ML BTL RIGHT EYE SCH (21:56)
[2021-11-25] MEDS: prednisoLONE 1% OPHTH.SUSP 5 ML OPHTH.SUSP RIGHT EYE SCH (21:56)
[2021-11-26 05:24] LABS: ABS Eosinophils 0.1 10^3/ul (0-0.6); ABS Lymphocytes 1.3 10^3/ul (1.0-4.8); ABS Monocytes 0.7 10^3/ul (0-0.8); ABS Neutrophils 1.4 10^3/ul (1.5-7.7); Hematocrit 40 % (42-52); Hemoglobin 13.9 g/dL (14.0-18.0); Lymphocyte % 37.1 %; Mean Corpuscular HGB Conc 35 g/dL (31-36); Mean Corpuscular Hemoglobin 30 pg (27-31); Mean Corpuscular Volume 88 fL (80-94); Mean Platelet Volume 6.9 fL (7.4-10.4); Nucleated Red Blood Cells % 0.3; Platelet Count 221 10^3/uL (150-450); Red Blood Count 4.59 10^6 /uL (4.18-5.48); Red Cell Distribution Width 14 % (10-15); White Blood Count 3.5 10^3/uL (3.5-10.8)
[2021-11-26 06:01] LABS: Magnesium 1.8 mg/dL (1.9-2.7)
[2021-11-26] MEDS ORDERED: Magnesium Sulfate IV 1GM/100ML 1 GM/100 ML BAG IV ONE (07:29)
[2021-11-26] MEDS ORDERED: ceFAZolin VIAL 1 GM in NS 0.9% 50 ML 50 ML IVPB ONE (07:53)
[2021-11-26] MEDS ORDERED: ceFAZolin 2 GM in NS PREMIX 2 GM/100 ML BAG IVPB ONE (07:53)
[2021-11-26] MEDS: prednisoLONE 1% OPHTH.SUSP 5 ML OPHTH.SUSP RIGHT EYE SCH ×2 (07:56→13:52)
[2021-11-26] MEDS: CMCS: Ketorolac 0.5% OPHTH (NF) 0.5 % 5 ML BTL RIGHT EYE SCH (07:56)
[2021-11-26] MEDS ORDERED: NS 0.9% 1000 ml BAG 1,000 ML IV SCH (08:00)
[2021-11-26] MEDS ORDERED: Perflutren Lipid Microsphere 3 ML VIAL ONE (08:37)
[2021-11-26] MEDS ORDERED: ceFAZolin VIAL 1 GM in NS *SYRINGE* 10 ML IVPB ONE (09:00)
[2021-11-26] MEDS ORDERED: CMCS: Nebivolol 2.5 mg TAB (NF) PO SCH (09:00)
[2021-11-26 13:46] VITALS: BP 119/76
== END 2021-11-26 14:30 | disposition short-term general hospital (02) | DRG 315 ==
LOC: ED 11:45 → EDHOLD 16:21 → ICU 18:59
PROVIDERS: ADMIT Surgery Surgical Critical Care; ATTEND Surgery Surgical Critical Care

== ENCOUNTER 2021-11-29 14:12 | Inpatient (IN) ==
[2021-11-29] MEDS ORDERED: NS 0.9% 1000 ml BAG 1,000 ML IV ONE (15:43)
[2021-11-29 16:04] LABS: ABS Lymphocytes 0.7 10^3/ul (1.0-4.8); ABS Monocytes 0.7 10^3/ul (0-0.8); ABS Neutrophils 3.9 10^3/ul (1.5-7.7); Eosinophil % 0.7 %; Hematocrit 37 % (42-52); Hemoglobin 12.7 g/dL (14.0-18.0); Lymphocyte % 13.3 %; Mean Corpuscular HGB Conc 34 g/dL (31-36); Mean Corpuscular Hemoglobin 30 pg (27-31); Mean Corpuscular Volume 88 fL (80-94); Mean Platelet Volume 6.9 fL (7.4-10.4); Platelet Count 189 10^3/uL (150-450); Red Blood Count 4.22 10^6 /uL (4.18-5.48); Red Cell Distribution Width 14 % (10-15); White Blood Count 5.3 10^3/uL (3.5-10.8)
[2021-11-29 16:27] LABS: Albumin 4.1 g/dL (3.2-5.2); Albumin/Globulin Ratio 1.6 (1-3); C Reactive Protein 92.54 mg/L (<8.01); Globulin 2.6 g/dL (2-4); Magnesium 1.9 mg/dL (1.9-2.7); Potassium 4.2 mmol/L (3.5-5.0); Total Bilirubin 0.8 mg/dL (0.2-1.0); Total Protein 6.7 g/dL (6.4-8.9); eGFR CKD-EPI 95.8 (>60)
[2021-11-29 17:39] LABS: Urine Appearance Clear; Urine Bilirubin Negative (Negative); Urine Blood 2+ (Negative); Urine Color Yellow; Urine Glucose Negative (Negative); Urine Ketones Negative (Negative); Urine Nitrite Negative (Negative); Urine Protein 1+(30 mg/dL) (Negative); Urine Specific Gravity 1.024 (1.002-1.030); Urine Urobilinogen Negative (Negative)
[2021-11-29 17:47] LABS: Urine Bacteria Absent (Absent); Urine Red Blood Cell 3+(>10/hpf) (Absent); Urine White Blood Cell Trace(0-5/hpf) (Absent)
[2021-11-29] MEDS ORDERED: Vancomycin 1,500 MG in NS 0.9% 250 ml 250 ML IVPB ONE (18:00)
[2021-11-29] MEDS ORDERED: Vancomycin 1,000 MG in NS 0.9% 250 ml 250 ML IVPB SCH (20:00)
[2021-11-29] MEDS ORDERED: Vancomycin per Pharmacy 1 EA NOTE FOLLOW UP PRN (20:30)
[2021-11-29] MEDS: cefTRIAXone 1 gm/50 mL D5W 1 GM/50 ML BAG IV SCH (20:58)
[2021-11-30] MEDS ORDERED: Dextran 70/Hypromellose Tears Eye Drops 15 ml BTL (for Artificials Tears) BOTH EYES PRN (01:45)
[2021-11-30] MEDS: Vancomycin 1000 MG in NS 0.9% 250 ML IVPB SCH ×3 (03:02→19:41)
[2021-11-30 04:55] LABS: ABS Lymphocytes 0.9 10^3/ul (1.0-4.8); ABS Monocytes 0.7 10^3/ul (0-0.8); ABS Neutrophils 2.9 10^3/ul (1.5-7.7); Eosinophil % 0.9 %; Hematocrit 34 % (42-52); Hemoglobin 11.4 g/dL (14.0-18.0); Lymphocyte % 19.9 %; Mean Corpuscular HGB Conc 34 g/dL (31-36); Mean Corpuscular Hemoglobin 30 pg (27-31); Mean Corpuscular Volume 89 fL (80-94); Mean Platelet Volume 7.4 fL (7.4-10.4); Platelet Count 165 10^3/uL (150-450); Red Blood Count 3.79 10^6 /uL (4.18-5.48); Red Cell Distribution Width 14 % (10-15); White Blood Count 4.5 10^3/uL (3.5-10.8)
[2021-11-30 05:14] LABS: Albumin 3.6 g/dL (3.2-5.2); Albumin/Globulin Ratio 1.6 (1-3); C Reactive Protein 95.3 mg/L (<8.01); Calcium 8.2 mg/dL (8.6-10.3); Globulin 2.3 g/dL (2-4); Total Bilirubin 0.7 mg/dL (0.2-1.0); Total Protein 5.9 g/dL (6.4-8.9); eGFR CKD-EPI 111.8 (>60)
[2021-11-30] MEDS ORDERED: Vancomycin 1,500 MG in NS 0.9% 250 ml 250 ML IVPB SCH (08:00)
[2021-11-30] MEDS: prednisoLONE 1% OPHTH.SUSP 5 ML OPHTH.SUSP RIGHT EYE SCH ×4 (08:39→21:58)
[2021-11-30] MEDS ORDERED: Vancomycin Trough Check NOTE FOLLOW UP ONE (17:30)
[2021-11-30] MEDS: cefTRIAXone 1 gm/50 mL D5W 1 GM/50 ML BAG IV SCH (21:53)
[2021-11-30] MEDS: Erythromycin OPTH OINT APPLIC OINT BOTH EYES SCH (21:57)
[2021-12-01] MEDS: Vancomycin 1000 MG in NS 0.9% 250 ML IVPB SCH ×3 (03:14→17:52)
[2021-12-01 06:23] LABS: ABS Lymphocytes 0.7 10^3/ul (1.0-4.8); ABS Monocytes 0.6 10^3/ul (0-0.8); ABS Neutrophils 2.4 10^3/ul (1.5-7.7); Hematocrit 37 % (42-52); Hemoglobin 12.8 g/dL (14.0-18.0); Lymphocyte % 18.7 %; Mean Corpuscular HGB Conc 35 g/dL (31-36); Mean Corpuscular Hemoglobin 31 pg (27-31); Mean Corpuscular Volume 89 fL (80-94); Mean Platelet Volume 6.7 fL (7.4-10.4); Platelet Count 175 10^3/uL (150-450); Red Blood Count 4.18 10^6 /uL (4.18-5.48); Red Cell Distribution Width 14 % (10-15); White Blood Count 3.7 10^3/uL (3.5-10.8)
[2021-12-01] MEDS: prednisoLONE 1% OPHTH.SUSP 5 ML OPHTH.SUSP RIGHT EYE SCH ×4 (09:00→21:58)
[2021-12-01] MEDS ORDERED: Vancomycin Trough Check NOTE FOLLOW UP ONE (09:30)
[2021-12-01] MEDS: cefTRIAXone 1 gm/50 mL D5W 1 GM/50 ML BAG IV SCH (21:56)
[2021-12-01] MEDS: Erythromycin OPTH OINT APPLIC OINT BOTH EYES SCH (21:58)
[2021-12-02] MEDS: Vancomycin 1000 MG in NS 0.9% 250 ML IVPB SCH ×3 (01:41→18:22)
[2021-12-02 05:57] LABS: Calcium 8.5 mg/dL (8.6-10.3); Potassium 4.1 mmol/L (3.5-5.0)
[2021-12-02 06:02] LABS: eGFR CKD-EPI 84.5 (>60)
[2021-12-02] MEDS: prednisoLONE 1% OPHTH.SUSP 5 ML OPHTH.SUSP RIGHT EYE SCH ×4 (09:12→22:56)
[2021-12-02] MEDS ORDERED: Senna TAB 8.6 mg TAB PO PRN (19:52)
[2021-12-02] MEDS: cefTRIAXone 1 gm/50 mL D5W 1 GM/50 ML BAG IV SCH (20:11)
[2021-12-02] MEDS: Erythromycin OPTH OINT APPLIC OINT BOTH EYES SCH (20:29)
[2021-12-02] MEDS: Magnesium Hydroxide LIQ 30 ML UDC PO SCH (22:42)
[2021-12-03] MEDS: Vancomycin 1000 MG in NS 0.9% 250 ML IVPB SCH ×2 (01:47→10:30)
[2021-12-03 06:23] VITALS: BP 106/46
[2021-12-03 06:55] LABS: ABS Lymphocytes 0.6 10^3/ul (1.0-4.8); ABS Monocytes 0.8 10^3/ul (0-0.8); ABS Neutrophils 1.2 10^3/ul (1.5-7.7); Eosinophil % 1.5 %; Hematocrit 32 % (42-52); Hemoglobin 11.1 g/dL (14.0-18.0); Mean Corpuscular HGB Conc 35 g/dL (31-36); Mean Corpuscular Hemoglobin 31 pg (27-31); Mean Corpuscular Volume 87 fL (80-94); Mean Platelet Volume 6.7 fL (7.4-10.4); Platelet Count 167 10^3/uL (150-450); Red Blood Count 3.63 10^6 /uL (4.18-5.48); Red Cell Distribution Width 13 % (10-15); White Blood Count 2.8 10^3/uL (3.5-10.8)
[2021-12-03 07:13] LABS: Calcium 8.6 mg/dL (8.6-10.3); Magnesium 1.9 mg/dL (1.9-2.7); Potassium 4.4 mmol/L (3.5-5.0); eGFR CKD-EPI 80.1 (>60)
[2021-12-03] MEDS: Magnesium Hydroxide LIQ 30 ML UDC PO SCH (08:22)
[2021-12-03] MEDS: prednisoLONE 1% OPHTH.SUSP 5 ML OPHTH.SUSP RIGHT EYE SCH (08:25)
[2021-12-03] MEDS ORDERED: Vancomycin Trough Check NOTE FOLLOW UP ONE (09:30)
[2021-12-03 13:35] LABS: C Reactive Protein 110.91 mg/L (<8.01)
[2021-12-03] MEDS ORDERED: Vancomycin 1,250 MG in NS 0.9% 250 ml 250 ML IVPB SCH (22:00)
[2021-12-05] MEDS ORDERED: Vancomycin Trough Check NOTE FOLLOW UP ONE (09:30)
== END 2021-12-03 13:15 | disposition home or self-care (01) | DRG 315 ==
LOC: ED 14:12 → EDHOLD 18:55 → SUATTDRO 18:55 → MED 11-30 01:12
PROVIDERS: ADMIT Internal Medicine; ATTEND Internal Medicine

== ENCOUNTER 2021-12-12 21:02 | Inpatient (IN) ==
[2021-12-13 02:41] LABS: Hematocrit 33 % (42-52); Hemoglobin 10.8 g/dL (14.0-18.0); Mean Corpuscular HGB Conc 33 g/dL (31-36); Mean Corpuscular Hemoglobin 29 pg (27-31); Mean Corpuscular Volume 87 fL (80-94); Mean Platelet Volume 6.8 fL (7.4-10.4); Platelet Count 216 10^3/uL (150-450); Red Blood Count 3.79 10^6 /uL (4.18-5.48); Red Cell Distribution Width 13 % (10-15); White Blood Count 4.2 10^3/uL (3.5-10.8)
[2021-12-13 02:42] LABS: ABS Lymphocytes 0.5 10^3/ul (1.0-4.8); ABS Monocytes 0.8 10^3/ul (0-0.8); ABS Neutrophils 2.8 10^3/ul (1.5-7.7); Eosinophil % 0.3 %; Lymphocyte % 13.2 %
[2021-12-13 02:54] LABS: Activated Partial Thrombo Time 37.1 seconds (26.0-38.0); INR 1.68 (0.86-1.15)
[2021-12-13 03:07] LABS: ALT 28 U/L (7-52); Albumin 3.7 g/dL (3.2-5.2); Albumin/Globulin Ratio 1.2 (1-3); Alkaline Phosphatase 42 U/L (35-149); Blood Urea Nitrogen 27 mg/dL (6-24); C Reactive Protein 58.37 mg/L (<8.01); CO2 Carbon Dioxide 26 mmol/L (22-32); Calcium 8.8 mg/dL (8.6-10.3); Chloride 103 mmol/L (101-111); Globulin 3.1 g/dL (2-4); Glucose 86 mg/dL (70-100); Sodium 136 mmol/L (135-145); Total Protein 6.8 g/dL (6.4-8.9); eGFR CKD-EPI 68.6 (>60)
[2021-12-13 03:15] LABS: RBC Morphology Normal (Normal)
[2021-12-13 03:16] LABS: Anion Gap 7 mmol/L (2-11)
[2021-12-13 03:37] LABS: Urine Appearance Cloudy; Urine Bilirubin Negative (Negative); Urine Blood 3+ (Negative); Urine Color Yellow; Urine Glucose Negative (Negative); Urine Ketones Negative (Negative); Urine Nitrite Negative (Negative); Urine Protein 2+(100 mg/dL) (Negative); Urine Specific Gravity 1.025 (1.002-1.030); Urine Urobilinogen Negative (Negative)
[2021-12-13 03:41] LABS: Urine Bacteria Absent (Absent); Urine Granular Casts Present (Absent); Urine Red Blood Cell 3+(>10/hpf) (Absent); Urine White Blood Cell 1+(6-10/hpf) (Absent)
[2021-12-13 03:54] LABS: Erythrocyte Sed Rate 80 mm/Hr (0-14)
[2021-12-13] MEDS ORDERED: Vancomycin 2,000 MG in NS 0.9% 500 ml BAG 500 ML IVPB ONE (07:00)
[2021-12-13] MEDS ORDERED: Vancomycin 1,000 MG VIAL IVPB SCH (07:00)
[2021-12-13] MEDS ORDERED: [UNRECOGNIZED DRUG - OTHER] BOTH EYES PRN (07:04)
[2021-12-13] MEDS ORDERED: DEXTRAN BOTH EYES PRN (07:04)
[2021-12-13] MEDS ORDERED: Vancomycin per Pharmacy 1 EA NOTE FOLLOW UP SCH (08:00)
[2021-12-13] MEDS: Nystatin SUSPENSION 100,000 UNITS/ML UDC PO SCH ×4 (09:04→21:35)
[2021-12-13] MEDS ORDERED: cefTRIAXone 1 gm/50 mL D5W 1 GM/50 ML BAG IV ONE (11:30)
[2021-12-13] MEDS: prednisoLONE 1% OPHTH.SUSP 5 ML OPHTH.SUSP RIGHT EYE SCH ×4 (12:11→21:37)
[2021-12-13 12:33] LABS: Rapid Strep Molecular Negative (Negative)
[2021-12-13 13:10] LABS: Potassium Redraw 4.4 mmol/L (3.5-5.0)
[2021-12-13] MEDS: Vancomycin 1000 MG in NS 0.9% 250 ML IVPB SCH (21:33)
[2021-12-14 06:11] LABS: Hematocrit 30 % (42-52); Hemoglobin 10.1 g/dL (14.0-18.0); Mean Corpuscular HGB Conc 34 g/dL (31-36); Mean Corpuscular Hemoglobin 29 pg (27-31); Mean Corpuscular Volume 87 fL (80-94); Platelet Count 156 10^3/uL (150-450); Red Blood Count 3.45 10^6 /uL (4.18-5.48); Red Cell Distribution Width 14 % (10-15); White Blood Count 3.8 10^3/uL (3.5-10.8)
[2021-12-14 06:13] LABS: ABS Lymphocytes 0.6 10^3/ul (1.0-4.8); ABS Monocytes 1.1 10^3/ul (0-0.8); ABS Neutrophils 2.1 10^3/ul (1.5-7.7); Eosinophil % 0.2 %; Nucleated Red Blood Cells % 0.1
[2021-12-14 06:14] LABS: INR 2.47 (0.86-1.15)
[2021-12-14 06:36] LABS: Calcium 8.3 mg/dL (8.6-10.3); Magnesium 1.7 mg/dL (1.9-2.7); Potassium 3.9 mmol/L (3.5-5.0); eGFR CKD-EPI 78.5 (>60)
[2021-12-14] MEDS ORDERED: Magnesium Sulfate IV 3 GM in NS 0.9% 100 ml BAG 100 ML IVPB ONE (07:23)
[2021-12-14] MEDS: Nystatin SUSPENSION 100,000 UNITS/ML UDC PO SCH ×4 (07:45→20:53)
[2021-12-14] MEDS: prednisoLONE 1% OPHTH.SUSP 5 ML OPHTH.SUSP RIGHT EYE SCH ×4 (07:46→20:57)
[2021-12-14] MEDS ORDERED: Magnesium Sulfate 2 GM IV (Premix) IVPB ONE (08:00)
[2021-12-14 08:34] LABS: RBC Morphology Normal (Normal)
[2021-12-14] MEDS ORDERED: Magnesium Sulfate 1 GM IV 1 GM/100 ML BAG IV ONE (09:00)
[2021-12-14] MEDS: Vancomycin 1000 MG in NS 0.9% 250 ML IVPB SCH ×2 (09:05→20:51)
[2021-12-14] MEDS: cefTRIAXone 1 gm/50 mL D5W 1 GM/50 ML BAG IV SCH (14:15)
[2021-12-15 06:15] LABS: ABS Lymphocytes 0.8 10^3/ul (1.0-4.8); ABS Monocytes 1.1 10^3/ul (0-0.8); ABS Neutrophils 2.2 10^3/ul (1.5-7.7); Eosinophil % 0.2 %; Hematocrit 31 % (42-52); Hemoglobin 10.4 g/dL (14.0-18.0); Lymphocyte % 18.5 %; Mean Corpuscular HGB Conc 33 g/dL (31-36); Mean Corpuscular Hemoglobin 29 pg (27-31); Mean Corpuscular Volume 88 fL (80-94); Mean Platelet Volume 6.6 fL (7.4-10.4); Nucleated Red Blood Cells % 0.1; Platelet Count 139 10^3/uL (150-450); Red Blood Count 3.55 10^6 /uL (4.18-5.48); Red Cell Distribution Width 13 % (10-15); White Blood Count 4.1 10^3/uL (3.5-10.8)
[2021-12-15 06:29] LABS: Calcium 8.3 mg/dL (8.6-10.3); Magnesium 2.1 mg/dL (1.9-2.7); Potassium 3.9 mmol/L (3.5-5.0); eGFR CKD-EPI 90.3 (>60)
[2021-12-15] MEDS ORDERED: Midazolam 5 mg/5 ml VIAL 1 mg/ml 5 ml VIAL (5 mg) ONE (08:17)
[2021-12-15] MEDS ORDERED: Naloxone 0.4 mg VIAL 0.4 mg/ml 1 ml VIAL ONE (08:17)
[2021-12-15] MEDS ORDERED: fentaNYL 100 mcg/2 ml 50 MCG/ML VIAL ONE (08:17)
[2021-12-15] MEDS ORDERED: Flumazenil 0.5 mg/5 ml 0.1 MG/ML 5 ml VIAL ONE (08:17)
[2021-12-15] MEDS ORDERED: Vancomycin Trough Check NOTE FOLLOW UP ONE (08:30)
[2021-12-15 09:26] LABS: PSA Screening Total 0.639 ng/mL (0-4.000)
[2021-12-15] MEDS: Vancomycin 1000 MG in NS 0.9% 250 ML IVPB SCH (09:58)
[2021-12-15] MEDS: prednisoLONE 1% OPHTH.SUSP 5 ML OPHTH.SUSP RIGHT EYE SCH ×4 (09:59→21:35)
[2021-12-15 10:55] LABS: Immunoglobulin A 319 mg/dL (61 - 356); Immunoglobulin G 1050 mg/dL (767 - 1590); Immunoglobulin M 27 mg/dL (37 - 286)
[2021-12-15] MEDS: Nystatin SUSPENSION 100,000 UNITS/ML UDC PO SCH ×4 (11:17→21:35)
[2021-12-15] MEDS: cefTRIAXone 1 gm/50 mL D5W 1 GM/50 ML BAG IV SCH (11:47)
[2021-12-15] MEDS ORDERED: Cefepime 1 GM in Dextrose 1 GM/50 ML BAG IV SCH (12:00)
[2021-12-15] MEDS: Cefepime 2 GM in Dextrose 2 GM/50 ML BAG IV SCH ×2 (14:02→23:21)
[2021-12-16 06:50] LABS: Hematocrit 28 % (42-52); Hemoglobin 9.7 g/dL (14.0-18.0); Mean Corpuscular HGB Conc 34 g/dL (31-36); Mean Corpuscular Hemoglobin 30 pg (27-31); Mean Corpuscular Volume 88 fL (80-94); Mean Platelet Volume 6.8 fL (7.4-10.4); Platelet Count 129 10^3/uL (150-450); Red Blood Count 3.24 10^6 /uL (4.18-5.48); Red Cell Distribution Width 14 % (10-15); White Blood Count 3.3 10^3/uL (3.5-10.8)
[2021-12-16 07:16] LABS: Calcium 8.2 mg/dL (8.6-10.3); Potassium 3.8 mmol/L (3.5-5.0); eGFR CKD-EPI 91.4 (>60)
[2021-12-16] MEDS: prednisoLONE 1% OPHTH.SUSP 5 ML OPHTH.SUSP RIGHT EYE SCH ×4 (08:27→20:39)
[2021-12-16] MEDS ORDERED: Vancomycin Trough Check NOTE FOLLOW UP ONE (08:30)
[2021-12-16] MEDS ORDERED: Potassium Chlor 20 meq TAB.ER PO ONE (08:38)
[2021-12-16] MEDS: Nystatin SUSPENSION 100,000 UNITS/ML UDC PO SCH ×4 (10:09→20:38)
[2021-12-16] MEDS: Cefepime 2 GM in Dextrose 2 GM/50 ML BAG IV SCH ×2 (12:25→23:46)
[2021-12-16] MEDS ORDERED: Iohexol 300 (CONTRAST) 10 ML SDV IV ONE (13:04)
[2021-12-17] MEDS ORDERED: Benzocaine/Menthol LOZ PO PRN (03:56)
[2021-12-17 08:21] LABS: ABS Lymphocytes 0.9 10^3/ul (1.0-4.8); ABS Monocytes 1.2 10^3/ul (0-0.8); ABS Neutrophils 1.9 10^3/ul (1.5-7.7); Eosinophil % 0.3 %; Hematocrit 28 % (42-52); Hemoglobin 9.8 g/dL (14.0-18.0); Lymphocyte % 22.3 %; Mean Corpuscular HGB Conc 34 g/dL (31-36); Mean Corpuscular Hemoglobin 30 pg (27-31); Mean Corpuscular Volume 86 fL (80-94); Mean Platelet Volume 7.2 fL (7.4-10.4); Nucleated Red Blood Cells % 0.1; Platelet Count 177 10^3/uL (150-450); Red Blood Count 3.29 10^6 /uL (4.18-5.48); Red Cell Distribution Width 14 % (10-15)
[2021-12-17 08:52] LABS: Vancomycin Trough 3.9 mcg/mL; eGFR CKD-EPI 88.3 (>60)
[2021-12-17 08:53] LABS: Calcium 8.3 mg/dL (8.6-10.3); eGFR CKD-EPI 88.3 (>60)
[2021-12-17] MEDS: Nystatin SUSPENSION 100,000 UNITS/ML UDC PO SCH ×4 (09:42→20:02)
[2021-12-17] MEDS: prednisoLONE 1% OPHTH.SUSP 5 ML OPHTH.SUSP RIGHT EYE SCH ×4 (09:47→20:05)
[2021-12-17] MEDS ORDERED: Iohexol 300 (CONTRAST) 10 ML SDV IV ONE (11:31)
[2021-12-17] MEDS: Cefepime 2 GM in Dextrose 2 GM/50 ML BAG IV SCH ×2 (12:25→23:10)
[2021-12-17 12:44] LABS: HIV 4th Generation Nonreactive (Nonreactive)
[2021-12-18 05:16] LABS: Hematocrit 30 % (42-52); Mean Corpuscular HGB Conc 33 g/dL (31-36); Mean Corpuscular Hemoglobin 29 pg (27-31); Mean Corpuscular Volume 86 fL (80-94); Mean Platelet Volume 7.2 fL (7.4-10.4); Platelet Count 204 10^3/uL (150-450); Red Cell Distribution Width 14 % (10-15); White Blood Count 3.2 10^3/uL (3.5-10.8)
[2021-12-18 05:34] LABS: Blood Urea Nitrogen 24 mg/dL (6-24); CO2 Carbon Dioxide 22 mmol/L (22-32); Calcium 8.4 mg/dL (8.6-10.3); Chloride 102 mmol/L (101-111); Glucose 119 mg/dL (70-100); Sodium 133 mmol/L (135-145); eGFR CKD-EPI 95.8 (>60)
[2021-12-18 05:36] LABS: Anion Gap 9 mmol/L (2-11)
[2021-12-18] MEDS: prednisoLONE 1% OPHTH.SUSP 5 ML OPHTH.SUSP RIGHT EYE SCH ×2 (10:08→12:13)
[2021-12-18] MEDS: Nystatin SUSPENSION 100,000 UNITS/ML UDC PO SCH ×2 (10:08→12:13)
[2021-12-18 11:08] LABS: Magnesium 1.9 mg/dL (1.9-2.7); Phosphorus 3.6 mg/dL (2.5-5.0)
[2021-12-18] MEDS: Cefepime 2 GM in Dextrose 2 GM/50 ML BAG IV SCH (12:01)
[2021-12-18 12:27] VITALS: BP 126/62
[2021-12-21 11:32] LABS: % CD3 64 % (58-86); % CD4 48 % (32-64); % CD8 16 % (13-40); 4/8 H/S Ratio 3.1 (>=0.9); Absolute CD45 Count 0.82 thou/mcL (0.82-2.84); CD3 523 cells/mcL (550-2202); CD4 394 cells/mcL (365-1437); CD8 128 cells/mcL (145-846)
== END 2021-12-18 13:40 | disposition home or self-care (01) | DRG 152 ==
LOC: ED 21:02 → EDHOLD 12-13 06:59 → SUATTDRO 12-13 06:59 → MEDTELE 12-13 11:22
PROVIDERS: ADMIT Nurse Practitioner; ATTEND Internal Medicine